=== PATIENT | female | born 1950 | race Caucasian/White ===

== ENCOUNTER 2024-07-01 18:54 | Inpatient (IN) ==
--- OUTSIDE RECORDS SUMMARY | 2024-07-01 18:59 | External Medical Summary | Summary of Care ---
Author Name Unknown Organization [facility] Address [address] [place] [address] Phone [phone] Care Team Providers Care Detention Deputy Name Role Phone Abelardo James MD Primary Care Provider [phone] Reason for Visit * Reason Comments Cough Encounter Details Date Type Department Care Team (Late st Contact Info) Description 06/30/2024 11:20 AM EDT Office Visit Family Practice [facility] [address] [place] [address] Hu Armstrong MD [address] [place] [address] Acute cough*; Iron deficiency anemia, unspecified iron deficiency anemia type; Abnormal CXR Allergies Active Allergy Reactions Criticality Noted Date Comments Nitrofurantoin Cough 12/15/2023 Omeprazole 12/26/2007 Itchiness and rash documented as of this encounter (statuses as of 06/30/2024) Medications Medication Sig Dispensed Refills Start Date End Date Status Vitamin D3 50 MCG (1999) Oral Capsule Take 1 Capsule by mouth in the morning. Active Centrum Silver 50+Women Oral Tablet Take by mouth daily. Active Vitamin C 500 MG Oral Tablet Chewable Take 1 Tablet by mouth in the morning. Active Cetirizine HCl 10 MG Oral Tablet (ZyrTEC) Take 1 Tablet by mouth in the morning. Active LORazepam 0.5 MG Oral Tablet (Ativan)Indications :Essential tremor,MAYANK (generalized anxiety disorder) Take 1 Tablet by mouth every 6 hours as needed for Anxiety. 30 Tablet 1 10/29/2022 Active NIFEdipine ER Osmotic Release 30 MG Oral Tablet Extended Release 24 Hour (Procardia XL)Indications:JOHN T syndrome (HCC) TAKE ONE TABLET BY MOUTH EVERY DAY IN THE MORNING 100 Tablet 3 08/15/2023 Active Primidone 50 MG Oral Tablet (Mysoline) TAKE ONE TABLET BY MOUTH TWO TIMES A DAY 200 Tablet 1 04/10/2024 5 Active Colchicine 0.6 MG Oral TabletIndications:C alcinosis cutis, Raynaud's syndrome, sclerodactyly and telangiectasia (CRST) syndrome (HCC) take 1 tablet by mouth daily 90 Tablet 1 06/01/2024 Active Albuterol Sulfate HFA 108 (90 Base) MCG/ACT Inhalation Aerosol SolutionIndications :Acute bronchitis, antibiotics not indicated Inhale 2 Puffs by mouth every 6 hours as needed for Wheezing. 54 g 1 06/01/2024 Active Mycophenolate Mofetil 500 MG Oral Tablet (CellCept) Take 3 Tablets by mouth in the morning and 3 Tablets before bedtime. 540 Tablet 06/07/2024 Active Iron-Vitamin C 65-125 MG Oral Tablet (Vitron C)Indications:Iron deficiency anemia due to chronic blood loss,CREST syndrome (HCC) 1 tablet 3 days a week ( Tuesday, Tuesday, Tuesday). 30 Tablet 3 06/12/2024 Active Esomeprazole Magnesium 40 MG Oral Capsule Delayed Release TAKE ONE CAPSULE BY MOUTH EVERY DAY BEFORE BREAKFAST 100 Capsule 3 06/12/2024 Active HYDROcodone Bit-Homatrop MBr 5-1.5 MG/5ML Oral Solution (Hycodan)Indication s:Chronic cough Take 5 mL by mouth every 6 hours as needed for Cough. 120 mL 06/23/2024 Active Meclizine HCl 25 MG Oral Tablet ChewableIndications :Benign paroxysmal vertigo of left ear chew 1 Tablet by mouth 3 times a day as needed for Dizziness. 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 Mild chronic gastritis 05/11/2018 MAYANK (generalized anxiety disorder) 01/26/2018 CREST syndrome 10/21/2011 Raynaud's syndrome 09/01/2006 Essential tremor 12/07/2002 documented as of this encounter (statuses as of 06/30/2024) Resolved Problems Problem Noted Date Diagnosed Date Resolved Date PIERSON (dyspnea on exertion) 08/22/2023 Gastroesophageal reflux dise ase with esophagitis 01/26/2018 05/11/2018 Esophageal reflux 01/10/2008 01/26/2018 Overview: esophageal reflux Other specified gastritis wi thout mention of hemorrhage 01/10/2008 01/26/2018 Overview: mild gastric irritation ADVANCE DIRECTIVE INFORMATION 03/23/2006 01/26/2018 Overview: Pt declined brochure FAM HX COLON CANCER- Father 12/07/2002 01/26/2018 Overview: 11/14 colonoscopy WNL. Recheck in 2017. Family history of other card iovascular diseases 12/07/2002 01/26/2018 Overview: ICD-10 update of inactive term FAM HX-DIABETES MELLITUS 12/07/2002 documented as of this encounter (statuses as of 06/30/2024) Immunizations Name Administration Dates Next Due COVID-19 mRNA, LNP-s, No Pre serve, 2-Dose Series (Pfizer) 12/10/2020,11/19/2020 Pneumococcal Conjugate Vacc, 13 Valent (Prevnar) 05/09/2017 Pneumococcal Polysaccharide PPV23 (Pneumovax) 05/11/2018 Seasonal Influenza, PF, 6 M & above, IM , (FluLaval or Fluzone) 06/19/2020,07/19/2018 Seasonal Influenza, Quadriva lent Hd (Fluzone Hd) 07/04/2023,08/24/2021 Seasonal Influenza, Quadriva lent, No Preserve, IM 08/03/2015 Seasonal Influenza, Trivalen t, (IIV3), with Preserv, (Fluzone) 07/31/2016,07/11/2012,07/03/2011,08/01,08/03/2008 Seasonal Influenza, Trivalen t, Adjuvanted, 65+ YRS, PF, (Fluad) 07/28/2022,07/02/2019 TDAP (age 10 and older)(Boostrix) 06/21/2022,10/2011 Varicella Zoster Vaccine (Adult) 09/06/2012 Zoster Vaccine Recombinant (Shingrix) 04/14/2020 ,11/12/2019 documented as of this encounter Social History Tobacco Use Types Packs/Day Years Used Date Smoking Tobacco: Never Smokeless Tobacco: Never Tobacco Cessation:Counseling Given: No Alcohol Use Standard Drinks/Week Comments Yes 0 (1 standard drink = 0.6 oz pure alcohol) As of 2.17.2006, the last noted alcohol intake was 2 ounces. wine occosionally PHQ-2 Answer Date Recorded PHQ-2 Score 0 08/06/2018 Hunger Vital Sign Answer Date Recorded Within the past 12 months, y ou worried that your food would run out before you got the money to buy more. Never true 03/27/20 24 Within the past 12 months, t he food you bought just didn't last and you didn't have money to get more. Never true 03/27/2024 Childcare Answer Date Recorded Do you feel overwhelmed with taking care of a child, family member or friend? No 03/27/2024 Does your family need help f inding childcare? (Household - for ages 0-17 years) Not on file 03/27/2024 Clothing Answer Date Recorded Have you been unable to get clothing when it was really needed? No 03/27/2024 Is your family able to get c lothes or diapers when needed? (Household - for ages 0-17 years) Not on file 03/27/2024 Personal Safety Answer Date Recorded Do you feel unsafe or have concerns for your saf ety? No 03/27/2024 Do you have concerns for you r family's safety? (Household - for ages 0-17 years) Not on file 03/27/2024 Utilities Answer Date Recorded Do you have trouble paying y our heating, water, or electric bill? No 03/27/2024 Is your family able to pay t he heat, water, or electric bill? (Household - for ages 0-17 years) Not on file 03/27/2024 Does your family have access to good internet? (Household - for ages 0-17 years) Not on file 03/27/2024 Employment Status Answer Date Recorded Are you unemployed or without regular income? No 03/27/2024 Does the household have a re lar source of income? (Household - for ages 0-17 years) Not on file 03/27/2024 Social Connections Answer Date Recorded How often do you feel lonely or isolated from th ose around you? Never 03/27/2024 Financial Resource Strain Answer Date R ecorded Do you have any trouble payi ng for your medications, or do you think you might in the future? No 03/27/2024 Does your family have troubl e paying for medicine? (Household - for ages 0-17 years) Not on file 03/27/2024 Transportation Needs Answer Date Record ed Do you have trouble getting a ride to medical visits or work? (Adult - for ages 18 years and over) Not on file 03/27/2024 Does your family have a hard time getting a ride to doctors visits? (Household - for ages 0-17 years) Not on file 03/27/2024 Has lack of transportation k ept you from medical appointments, meetings, work, or from getting things needed for daily living? Check all that apply. No 03/27/2024 Do you (or your family) have trouble finding or paying for a ride (transportation)? (Household - for ages 0-17 years) Not on file 03/27/2024 Housing Stability Answer Date Recorded Do you currently live in a s helter or have no steady place to sleep at night? No 03/27/2024 Do you think you are at risk of becoming homeless? (Adult - for ages 18 years and over) Not on file 03/27/2024 Does your family worry about paying for your home or becoming homeless? (Household - for ages 0-17 years) Not on file 0 03/27/2024 Are you homeless or worried that you might be in the future? No 03/27/2024 Are you (or your family) katalina eless or worried that you might be in the future? (Household - for ages 0-17 years) Not on file Food Insecurity Answer Date Recorded Do you need food for this week? No 03/27/2024 Are you able to get enough f ood for your family? (Household - for ages 0-17 years) Not on file 03/27/2024 Does your family need food t his week? (Household - for ages 0-17 years) Not on file 03/27/2024 Do you always have enough fo od for your family? (Household - for ages 0-17 years) Not on file 03/27/2024 Sex and Gender Information Value Date Recorded Sex Assigned at Female 03/27/2024 4:33 PM EDT Gender Identity Female 03/27/2024 4:33 PM EDT Sexual Orientation Straight 03/27/2024 4: 33 PM EDT Job Start Date Occupation Industry Not on file Not on file Not on file documented as of this encounter Last Filed Vital Signs Vital Sign Reading Time Taken Comments Blood Pressure 120/68 06/30/2024 11:11 AM EDT Pulse 102 06/30/2024 11:11 AM EDT Temperature 36.9 C (98.4 F) 06/30/2024 11:11 AM E DT Respiratory Rate 20 06/30/2024 11:11 AM EDT Oxygen Saturation 98% 06/30/2024 11:11 AM EDT Inhaled Oxygen Concentration - - Weight 54.5 kg (120 lb 1.6 oz) 06/30/2024 11:11 AM EDT Height 166.4 cm (5' 5.5") 06/30/2024 11:11 AM ED T Body Mass Index 19.68 06/30/2024 11:11 AM EDT documented in this encounter Progress Notes * Hu Armstrong MD - 06/30/2024 11:36 AM EDT Chief Complaint Patient presents with Cough SUBJECTIVE: Martha Vargas is a 73 year old female with PMH as below who presents for acute. 6 weeks ago, felt tired, slighty cough +covid, got better. 2 weeks ago, started with re-cough with dark sputum in am, slight pierson. No fevers, but lots of fatigue, some sinus congestion, ear discomfort. 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 Centrum Silver 50+Women Oral Tablet Take by mouth daily. Vitamin C 500 MG Oral Tablet Chewable Take 1 Tablet by mouth in the morning. Cetirizine HCl 10 MG Oral Tablet (ZyrTEC) Take 1 Tablet by mouth in the morning. LORazepam 0.5 MG Oral Tablet (Ativan) Take 1 Tablet by mouth every 6 hours as needed for Anxiety. 30 Tablet 1 NIFEdipine ER Osmotic Release 30 MG Oral Tablet Extended Release 24 Hour (Procardia XL) TAKE ONE TABLET BY MOUTH EVERY DAY IN THE MORNING 100 Tablet 3 Primidone 50 MG Oral Tablet (Mysoline) TAKE ONE TABLET BY MOUTH TWO TIMES A DAY 200 Tablet 1 Colchicine 0.6 MG Oral Tablet take 1 tablet by mouth daily 90 Tablet 1 Albuterol Sulfate HFA 108 (90 Base) MCG/ACT Inhalation Aerosol Solution Inhale 2 Puffs by mouth every 6 hours as needed for Wheezing. 54 g 1 Mycophenolate Mofetil 500 MG Oral Tablet (CellCept) Take 3 Tablets by mouth in the morning and 3 Tablets before bedtime. 540 Tablet 0 Iron-Vitamin C 65-125 MG Oral Tablet (Vitron C) 1 tablet 3 days a week ( Tuesday, Tuesday, Tuesday). 30 Tablet 3 Esomeprazole Magnesium 40 MG Oral Capsule Delayed Release TAKE ONE CAPSULE BY MOUTH EVERY DAY BEFORE BREAKFAST 100 Capsule 3 HYDROcodone Bit-Homatrop MBr 5-1.5 MG/5ML Oral Solution (Hycodan) Take 5 mL by mouth every 6 hours as needed for Cough. 120 mL 0 No current facility-administered medications for this visit. Review of patient's allergies indicates: Allergen Reactions Nitrofurantoin Cough Omeprazole Itchiness and rash Health Maintenance Due Topic Date Due Adult Wellness Visit Never done Depression Screening 11/12/2020 Influenza Vaccine (FLU shot) (1) 06/03/2024 ROS: CONSTITUTIONAL: as per hpi EARS: No drainage, No tinnitus or vertigo, and No recent change in hearing PULMONARY: No rales CARDIOVASCULAR: No chest pain, No orthopnea, No paroxysmal nocturnal dyspnea, No edema, No palpitations, and No syncope ALL OTHER SYSTEMS NEGATIVE I reviewed social, PMH, PSH, and family history and updated where needed. 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 wine occosionally Drug use: No Sexual activity: Yes Partners: Male Other Topics Concern Service Not Asked Blood Transfusions Not Asked Caffeine Concern Not Asked Occupational Exposure Not Asked Hobby Hazards Not Asked Sleep Concern Not Asked Stress Concern Not Asked Weight Concern Not Asked Special Diet Yes Comment: healthy eating habits and calcium reviewed Back Care Not Asked Exercise Yes Comment: curves 4-5x/wk Bike Helmet Not Asked Seat Belt Yes Self-Exams Yes Comment: no findings. Social History Narrative Not on file Social Determinants of Health Financial Resource Strain: Low Risk (03/27/2024) Financial Resource Strain Do you have any trouble paying for your medications, or do you think you might in the future? (Adult - for ages 18 years and over): No Does your family have trouble paying for medicine? (Household - for ages 0-17 years): Not on file Food Insecurity: No Food Insecurity (03/27/2024) Food Insecurity Do you need food for this week? (Adult - for ages 18 years and over): No Are you able to get enough food for your family? (Household - for ages 0-17 years): Not on file Does your family need food this week? (Household - for ages 0-17 years): Not on file Do you always have enough food for your family? (Household - for ages 0-17 years): Not on file Transportation Needs: No Transportation Needs (03/27/2024) Transportation Needs Do you have trouble getting a ride to medical visits or work? (Adult - for ages 18 years and over):Not on file Does your family have a hard time getting a ride to doctors visits? (Household - for ages 0-17 years): Not on file Has lack of transportation kept you from medical appointments, meetings, work, or from getting things needed for daily living? Check all that apply. (Adult - for ages 18 years and over): No Do you (or your family) have trouble finding or paying for a ride (transportation)? (Household - for ages 0-17 years): Not on file Social Connections: Socially Integrated (03/27/2024) Social Connections How often do you feel lonely or isolated from those around you? (Adult - for ages 18 years and over): Never Housing Stability: Low Risk (03/27/2024) Housing Stability Do you currently live in a long-term or have no steady place to sleep at night? (Adult - for ages 18 years and over): No Do you think you are at risk of becoming homeless? (Adult - for ages 18 years and over): Not on file Does your family worry about paying for your home or becoming homeless? (Household - for ages 0-17 years): Not on file Are you homeless or worried that you might be in the future? (Adult - for ages 18 years and over): No Are you (or your family) homeless or worried that you might be in the future? 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) 05/14/2024 cellcept Sigmoid diverticulosis 03/28/2024 Past Surgical History: Procedure Laterality Date COLONOSCOPY 10/2006 negative- repeat in 5 years due to FH colon cancer in father COLONOSCOPY, DIAGNOSTIC (RECTUM) 11/11/2011 normal COLONOSCOPY, DIAGNOSTIC (RECTUM) 01/28/2017 normal, repeat 5 yrs/COLONOSCOPY FLEXIBLE PROXIMAL DIAGNOSTIC performed by Adriana Bruno DO at [facility] COLONOSCOPY, DIAGNOSTIC (RECTUM) 10/07/2022 diverticulosis in sigmoid colon, otherwise normal / no specimens collected / 5 year recall / COLONOSCOPY FLEXIBLE PROXIMAL DIAGNOSTIC performed by Adriana Bruno DO at [facility] EGD, FLEXIBLE, DIAGNOSTIC 02/16/2018 acid reflux/ESOPHAGOGASTRODUODENOSCOPY (EGD), FLEXIBLE, TRANSORAL, DIAGNOSTIC performed by Adriana Bruno DO at [facility] EGD, FLEXIBLE, DIAGNOSTIC 08/20/2020 Maira esophagitis, severe reflux / ESOPHAGOGASTRODUODENOSCOPY (EGD), FLEXIBLE, TRANSORAL, DIAGNOSTIC performed by Adriana Bruno DO at [facility] EGD, FLEXIBLE, DIAGNOSTIC 10/22/2020 eso inflammation on bx / ESOPHAGOGASTRODUODENOSCOPY (EGD), FLEXIBLE, TRANSORAL, DIAGNOSTIC performed by Jordan Mukherjee MD at [facility] EGD, FLEXIBLE, DIAGNOSTIC 10/19/2023 small amount food, thick secreations stomach/biopsies show ulceration and inflammation/ESOPHAGOGASTRODUODENOSCOPY (EGD), FLEXIBLE, TRANSORAL, DIAGNOSTIC performed by Jennifer Young DO at [facility] EGD, FLEXIBLE, W/BIOPSY 01/10/2008 GERD and gastric irritation EXERCISE ECHO 12/14/2007 no ischemic changes at high workload achieved PARTIAL HYSTERECTOMY age 33 for endometriosis; left ovary remains REMOVE CATARACT, INSERT LENS PROSTH Left 12/05/2018 left EXTRACAPSULAR CATARACT REMOVAL WITH INTRAOCULAR LENS performed by Rick Cantu MD at [facility] REMOVE CATARACT, INSERT LENS PROSTH Right 12/12/2018 right EXTRACAPSULAR CATARACT REMOVAL WITH INTRAOCULAR LENS performed by Rick Cantu MD at [facility] Family History Problem Relation Name Age of Onset Alzheimer's disease Mother 87 Colon cancer Father 70s Heart Disorder Father s/p CABG Diabetes Father Heart failure Father No Known Problems Sister No Known Problems Brother Breast Cancer No significant family history Ovarian cancer No significant family history Endometrial cancer No significant family history OBJECTIVE: PHYSICAL EXAM: BP 120/68 (BP Site: Left Arm, BP Position: Sitting, BP Cuff Size: Regular) | Pulse 102 | Temp 36.9 C (98.4 F) (Tympanic) | Resp 20 | Ht 1.664 m (5' 5.5") | Wt 54.5 kg (120 lb 1.6 oz) | SpO2 98% |BMI 19.68 kg/m | BSA 1.59 m General: alert, healthy, and no distress Head: Normocephalic, No masses, lesions,or abnormalities Heart: regular rate & rhythm, no murmur, no gallops, PMI non-displaced, S-1 normal, and S-2 normal Lungs: normal respiratory rate and rhythm, lungs clear to auscultation Ears: small cerumen left canal, otherwise clear, external ears normal Psych: normal affect, no flight of ideas or tangential thought, good eye contact, no pressured speech I reviewed last cbc, gfr ASSESSMENT: (R05.1) Acute cough (primary encounter diagnosis) (D50.9) Iron deficiency anemia, unspecified iron deficiency anemia type PLAN: Acute cough (Primary) - XR CHEST 2 VIEWS - RESPIRATORY PATHOGEN PANEL, PCR; Future; Expected date: 06/30/2024 - RESPIRATORY PATHOGEN PANEL, PCR Check cxr and panel given h/o ILD on cellcept Cont tussive, fluids, rest Iron deficiency anemia, unspecified iron deficiency anemia type Sees heme Follow Up: Return if symptoms worsen or fail to improve. Hu Armstrong MD documented in this encounter Nursing Notes * Lyndsey Santana MED ASSIST - 06/30/2024 11:08 AM EDT Martha Vargas presents with complaints of: Cold Symptoms- Cough - with mucus, color is clear and moist, Left ear feels plugged, loss of hearing Shortness of breath Patient denies other symptoms Onset of symptoms: 2 week(s) ago. COVID 6 weeks ago. documented in this encounter Miscellaneous Notes * Addendum Note - Hu Armstrong MD - 06/30/2024 12:53 PM EDTAddended by: [facility] ARMSTRONG on: 06/30/2024 12:53 PM Modules accepted: Orders documented in this encounter Plan of Treatment Upcoming Encounters Date Type Department Care Team (Late st Contact Info) Description 08/24/2024 9:00 AM EST Laboratory Laboratory, [facility] [address] [place] [phone] [facility] [address] [place] [address] 08/31/2024 11:45 AM EST Office Visit Hematology/Oncology [facility] [address] [facility] [place] [id number] Jonah Felipe MD [address] [facility] [place] [address] 03/13/2025 7:15 AM EDT [facility] [address] [facility] [place] [address] 05/15/2025 7:40 AM EDT Office Visit Family Practice [facility] [address] [facility] [place] [address] Abelardo James MD [address] [place] [address] 06/20/2025 10:20 AM EDT Office Visit Rheumatology [place] [address] [address] [place], [place] [address] Mihir Gomes MD [facility] [place] [address] Pending Results Name Type Priority Associated Diagnoses Date /Time RESPIRATORY PATHOGEN PANEL, PCR Lab Routine Acute cough 06/30/2024 11:45 AM EDT Scheduled Orders Name Type Priority Associated Diagnoses Orde r Schedule RESPIRATORY PATHOGEN PANEL, PCR Lab Routine Acute cough Expected: 06/30/2024 (Approximate), Expires: 06/30/2025 XR CHEST 2 VIEWS Medical Imaging Routine Abnormal CXR Expected: 07/30/2024, Expires: 07/30/2025 Scheduled Procedures Name Priority Associated Diagnoses Date/Ti me COLONOSCOPY FLEXIBLE PROXIMA L DIAGNOSTIC Recall Family history of colon cancer Health Maintenance Due Date Last Done Comments Cologuard 1996 Fecal Occult Blood Test 1996 Sigmoidoscopy 1996 Adult Wellness Visit 2017 Depression Screening 11/12/2020 11/12/2019 Influenza Vaccine (FLU shot) (#1) 2024 07/04/2023, 07/28/2022, 08/24/2021, Additional history exists COVID-19 Vaccine (3 - Pfizer risk series) 07/01/2024 12/10/2020, 11/19/2020 Postponed from 01/07/2021 (Unavailable) Mammogram 03/12/2025 03/12/2024, 03/03, 03/11/2023, Additional history exists DXA Scan 06/27/2025 06/27/2023, 06/04, 06/24/2021, Additional history exists Colonoscopy 10/07/2027 10/07/2022, 01/2023, 01/28/2017, Additional history exists Colorectal Cancer Screening 10/07/2027 Lipid Panel 11/23/2028 11/23/2023, 11/04, 05/05/2022, Additional history exists DTap/Tdap Vaccines (3 - Td or Tdap) 06/21/2032 06/21/2022, 05/03/2012 Pneumococcal Vaccine: 65+ Years Completed 05/11/2018, 05/09/2017 VITAMIN D LEVEL ONCE IN A LIFETIME-USE SMARTSET# [id number] Completed 06/09/2018 Zoster Vaccines Completed 04/14/2020, 11/03, 09/06/2012 RETIRED - COLONOSCOPY-EVERY 5 YRS AGES 18-100 Discontinued 10/07/2022, 10/07/2022, 01/28/2017, Additional history exists HPV (Gardasil) Vaccine Aged Out No lo nger eligible based on patient's age to complete this topic Hepatitis B Vaccine Aged Out No longe r eligible based on patient's age to complete this topic MENINGOCOCCAL (MENACTRA/MENVEO) Aged Out No longer eligible based on patient's age to complete this topic documented as of this encounter Medical Devices Implanted Type 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 Device Identifier Shelf Expiration Date Model / Serial / Lot Lens Intraoc 20.0 - [id number] - [id number] Implanted:Qty: 1 on 12/05/2018 by Rick Cantu MD at [facility] Left: Eye [employer]OM[employer] 06/02/2023 [id number] / [id number] / [id number] Lens Intraoc 16.0 - [id number] - [id number] Implanted:Qty: 1 on 12/12/2018 by Rick Cantu MD at [facility] Right: Eye BAUSCH [employer] LOMB 04/01/2023 [id number] / [id number] / [id number] documented as of this encounter Procedures Procedure Name Priority Date/Time Associated Diagnosis Comments XR CHEST 2 VIEWS STAT 06/30/2024 11:4 5 AM EDT Acute cough documented in this encounter Results * XR CHEST 2 VIEWS (06/30/2024 11:45 AM EDT) Anatomical Region Laterality Modality Chest Digital Radiogra phy 06/30/2024 12:1 9 PM EDT Impressions 06/30/2024 12:17 PM EDT IMPRESSION Bilateral subpleural reticular densities and ground-glass opacities are again noted, consistent with interstitial lung disease. There are however increased bilateral lower lobe ground-glass opacities, concerning for infection. There also bilateral peribronchial thickening. Narrative 06/30/2024 12:17 PM EDT EXAM XR CHEST 2 VIEWS-06/30/2024 11:45 am HISTORY cough 2 weeks h/o ILD COMPARISON Chest CT dated 09/28/2023 TECHNIQUE Chest x-ray two views FINDINGS The cardiac silhouette is normal in size. The lungs are hyperinflated. Bilateral ground-glass opacities and subpleural reticular densities are again noted, most significantly involving the mid and lower lung zones. There are increased bibasilar ground-glass opacities. There is bilateral peribronchial thickening. There are mild degenerative changes of the thoracic spine. Procedure Note Yu Segundo MD - 06/30/2024 EXAM XR CHEST 2 VIEWS-06/30/2024 11:45 am HISTORY cough 2 weeks h/o ILD COMPARISON Chest CT dated 09/28/2023 TECHNIQUE Chest x-ray two views FINDINGS The cardiac silhouette is normal in size. The lungs are hyperinflated.Bilateral ground-glass opacities and subpleural reticular densities areagain noted, most significantly involving the mid and lower lung zones.There are increased bibasilar ground-glass opacities. There is bilateralperibronchial thickening. There are mild degenerative changes of thethoracic spine. IMPRESSION IMPRESSION Bilateral subpleural reticular densities and ground-glass opacities areagain noted, consistent with interstitial lung disease. There are howeverincreased bilateral lower lobe ground-glass opacities, concerning forinfection. There also bilateral peribronchial thickening. Hu Armstrong MD RADIOLOGY (RAD G ENERAL) documented in this encounter Visit Diagnoses Diagnosis Acute cough- Primary Iron deficiency anemia, unspecified iron deficiency anemia type Abnormal CXR Other nonspecific abnormal finding of lung field Screening mammogram for breast cancer documented in this encounter Additional Health Concerns Infection Onset Date Last Indicated Resolved Time Respiratory Rule-Out 06/30/2024 06/30/2024 documented as of this encounter Care Teams Detention Deputy Relationship Specialty Start Date End Date Abelardo James MD [address] [place] [address] PCP - General Family Medicine 11/09/18 documented as of this encounter
--- OUTSIDE RECORDS SUMMARY | 2024-07-01 18:59 | External Medical Summary | Summary of Care ---
Author Name Unknown Organization [facility] Address [address] [facility] [place] [address] Phone [phone] Care Team Providers Care Community Health Program Representative Name Role Phone Abelardo James MD Primary Care Provider [phone] Reason for Visit * Reason Comments Cough Encounter Details Date Type Department Care Team (Late st Contact Info) Description 06/30/2024 11:20 AM EDT Office Visit Family Practice [facility] [address] [place] [address] Hu Armstrong MD [address] [place] [address] Acute cough*; Iron deficiency anemia, unspecified iron [...] Oral Tablet Extended Release 24 Hour (Procardia XL)Indications:JHON T syndrome (HCC) TAKE ONE TABLET BY [...] Essential tremor Raynaud's syndrome CREST syndrome ([facility]) MAYANK (generalized anxiety disorder) Mild chronic gastritis Age-related osteoporosis without current pathological fracture Dyslipidemia Benign paroxysmal vertigo of left ear ILD (interstitial lung disease) ([facility]) Sigmoid diverticulosis 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[facility]) Current Outpatient Medications Medication Sig Dispense Refill [...] level: Not on file Occupational History 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: [employer] 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: [employer] Tobacco Use Smoking status: Never [...] Stability Do you currently live in a care home or have no steady place to sleep [...] performed by Adriana Bruno DO at END[facility]COPY [facility] COLONOSCOPY, DIAGNOSTIC (RECTUM) 10/07/2022 diverticulosis in sigmoid colon, otherwise normal / no specimens collected / 5 year recall / COLONOSCOPY FLEXIBLE PROXIMAL DIAGNOSTIC performed by Adriana Bruno DO at [facility]COPY [facility] EGD, FLEXIBLE, DIAGNOSTIC 02/16/2018 acid reflux/ESOPHAGOGASTRODUODENOSCOPY (EGD), FLEXIBLE, TRANSORAL, DIAGNOSTIC performed by Adriana Bruno DO at [facility]COPY [facility] EGD, FLEXIBLE, DIAGNOSTIC 08/20/2020 Maira esophagitis, severe reflux / ESOPHAGOGASTRODUODENOSCOPY (EGD), FLEXIBLE, TRANSORAL, DIAGNOSTIC performed by Ardiana Bruno DO at [facility]COPY [facility] EGD, FLEXIBLE, DIAGNOSTIC 10/22/2020 eso inflammation on bx / ESOPHAGOGASTRODUODENOSCOPY (EGD), FLEXIBLE, TRANSORAL, DIAGNOSTIC performed by Jordan Mukherjee MD at [facility]COPY [facility] EGD, FLEXIBLE, DIAGNOSTIC 10/19/2023 small amount food, thick secreations stomach/biopsies show ulceration and inflammation/ESOPHAGOGASTRODUODENOSCOPY (EGD), FLEXIBLE, TRANSORAL, DIAGNOSTIC performed by Jennifer Young DO at [facility] EGD, FLEXIBLE, W/BIOPSY 01/10/2008 GERD and gastric irritation EXERCISE ECHO 12/14/2007 no ischemic changes at high workload achieved PARTIAL HYSTERECTOMY age 33 for endometriosis; left ovary remains REMOVE CATARACT, INSERT LENS PROSTH Left 12/05/2018 left EXTRACAPSULAR CATARACT REMOVAL WITH INTRAOCULAR LENS performed by Rick Cantu MD at [facility] REMOVE CATARACT, INSERT LENS PROSTH Right 12/12/2018 right EXTRACAPSULAR CATARACT REMOVAL WITH INTRAOCULAR LENS performed by Rick Cantu MD at OR [facility] Family History Problem Relation Name Age of [...] MD - 06/30/2024 12:53 PM EDTAddended by: HU ARMTSRONG on: 06/30/2024 12:53 PM Modules accepted: Orders documented in this encounter Plan of Treatment Upcoming Encounters Date Type Department Care Team (Late st Contact Info) Description 08/24/2024 9:00 AM EST Laboratory Laboratory, [facility] [address] [facility] [place] [phone] [facility] [address] [place] [place] [address] 08/31/2024 11:45 AM EST Office Visit Hematology/Oncology [facility] [address] [facility] [place] [phone] Jonah Felipe MD [address] [facility] [place] [address] 03/13/2025 7:15 AM EDT [facility] [address] [address] 05/15/2025 7:40 AM EDT Office [facility] [address] [facility] [place] [address] Abelardo James MD [address] [facility] [place] [address] 06/20/2025 10:20 AM EDT Office Visit Rheumatology [place] [address] [employer] [place], [place] [address] Mihir Gomes MD [facility] [place] [address] Pending Results Name Type Priority Associated Diagnoses [...] D LEVEL ONCE IN A LIFETIME-USE SMARTSET# 11183 Completed 06/09/2018 Zoster Vaccines Completed 04/14/2020, 11/03, [...] this encounter Medical Devices Implanted Type Area Model Set Artist Device Identifier Shelf Expiration Date Model / Serial / Lot Lens Intraoc 20.0 - [id number] - [id number] Implanted:Qty: 1 on 12/05/2018 by Rick Cantu MD at OR [facility] Left: Eye BAUSCH [employer] LOMB 06/02/2023 [id number] / [id number] / [id number] Lens Intraoc 16.0 - [id number] - [id number] Implanted:Qty: 1 on 12/12/2018 by Rick Cantu MD at OR [facility] Right: Eye BAUSCH [employer] LOMB 04/01/2023 [id number] / [id number] / [id number] documented as of this encounter Procedures Procedure [...] documented as of this encounter Care Teams Community Health Program Representative Relationship Specialty Start Date End Date Abelardo James MD [address] [place] [address] PCP - General Family Medicine 11/09/18 documented as of this encounter
--- OUTSIDE RECORDS SUMMARY | 2024-07-01 18:59 | External Medical Summary ---
Author Name Unknown Address Unknown Organization K01:LABORATORY [facility] - [facility] [address] [place] [address] Laboratory Report Ordering Provider Test Date Status THI SAAVEDRA 06/29/2024 09:04:22 Final Observation Date Value Abnormality Reference (Units ) Status Retic, % (auto) 06/29/2024 09:04:22 1.10 0.80-1.90 (%) Final Reticulocytes, Absolute 06/29/2024 09:04:22 31.8 31.3-100.1 (K/uL) Final Reticulocyte fraction, immature 06/29/2024 09:04:22 16.2 2.5-20.6 (%) Final Reticulocyte HGB 06/29/2024 09:04:22 29.1 Below low normal 29.7-37.4 (pg) Final Performing Location LABORATORY [facility] - [address] [place] [address]
--- OUTSIDE RECORDS SUMMARY | 2024-07-01 18:59 | External Medical Summary ---
Author Name Unknown Address Unknown Organization K01:LABORATORY [facility] - [address] [place] [address] Laboratory Report Ordering Provider Test Date Status THI SAAVEDRA 06/29/2024 09:04:22 Final Observation Date Value Abnormality Reference (Units ) Status Ferritin 06/29/2024 09:04:22 205 Above high normal 13 -150 (ng/mL) Final Postmenopausal women have hi gher ferritin levels than pre-menopausal women. The above reference interval is based on pre-menopausal women. Performing Location LABORATORY C - [address] [place] [address]
--- OUTSIDE RECORDS SUMMARY | 2024-07-01 18:59 | External Medical Summary | Summary of Care ---
Author Name Unknown Organization [facility] Address [address] [facility] [place] [place] [address] Phone [phone] Care Team Providers Care Kindergarten Aide Name Role Phone Abelardo James MD Primary Care Provider [phone] Reason for Visit * Reason Onset Date Comments Test Results Imaging Study 06/30/2024 Chest X ray Encounter Details Date Type Department Care Team (Late st Contact Info) Description 06/30/2024 Telephone Family Practice [facility] [address] [place] [address] Abelardo James MD [address] [place] [address] Test Results Imaging Study (Chest X ray) Allergies Active Allergy Reactions Criticality Noted Date [...] anemia due to chronic blood loss,CREST syndrome ([facility]) 1 tablet 3 days a week ( Tuesday, Tuesday, Tuesday). 30 Tablet 3 06/12/2024 Active Esomeprazole Magnesium 40 MG Oral Capsule Delayed Release TAKE ONE CAPSULE BY MOUTH EVERY DAY BEFORE BREAKFAST 100 Capsule 3 06/12/2024 Active HYDROcodone Bit-Homatrop MBr 5-1.5 MG/5ML Oral Solution (Hycodan)Indication s:Chronic cough Take 5 mL by mouth every 6 hours as needed for Cough. 120 mL 06/23/2024 Active Doxycycline Hyclate 100 MG Oral CapsuleIndications: Lung infection Take 1 Capsule by mouth in the morning and 1 Capsule before bedtime. Do all this for 7 days. Take for 7 days. 14 Capsule 06/30/2024 4 Active Amoxicillin-Pot Clavulanate 875-125 MG Oral Tablet (Augmentin)Indicati ons:Lung infection Take 1 Tablet by mouth in the morning and 1 Tablet before bedtime. 14 Tablet 06/30/2024 Active Azithromycin 250 MG Oral Tablet (Zithromax)Indicati ons:Lung infection Take 2 tabs by mouth on the first day, then 1 tab daily on days two through five 6 Tablet 06/30/2024 4 Discontinue d(Patient preference/ discontinua tion) Amoxicillin-Pot Clavulanate 875-125 MG Oral Tablet (Augmentin)Indicati ons:Lung infection Take 1 Tablet by mouth in the morning and 1 Tablet before bedtime. Do all this for 7 days. 14 Tablet 06/30/2024 4 Discontinue d(Patient preference/ discontinua tion) documented [...] Date Smoking Tobacco: Never Smokeless Tobacco: Never Alcohol Use Standard Drinks/Week Comments Yes 0 (1 standard drink = 0.6 oz pure alcohol) As of 11.19.2006, the last noted alcohol [...] on file documented as of this encounter Miscellaneous Notes * Telephone Encounter - Lyndsey Santana, MED ASSIST - 06/30/2024 1:41 PM EDT Patient's aware and agreeable. * Telephone Encounter - Lyndsey Santana MED ASSIST - 06/30/2024 1:40 PM EDT ----- Message from Hu Armstrong MD sent at 06/30/2024 12:52 PM EDT ----- Possible pneumonias on x-ray. I would recommend, while we wait for swab, starting azithromycin(z pack) AND amoxicillin-clauv for possible pneumonia. Repeat cxr 4 weeks. Er for worsening, sob, pierson, cough * Telephone Encounter - Hu Armstrong MD - 06/30/2024 1:38 PM EDT Please let her know I switch abx to Augmentin (amox-clauv) and doxycyline as I saw on colchicine, can't use azithromycin on that med, thanks * Telephone Encounter - Madeline Basurto LPN - 06/30/2024 1:27 PM EDT Spoke to pt and made her aware of message below. Pt stated understanding. [facility] [place]. * Telephone Encounter - Madeline Basurto LPN - 06/30/2024 1:25 PM EDT ----- Message from Hu Armstrong MD sent at 06/30/2024 12:52 PM EDT ----- Possible pneumonias on x-ray. I would recommend, while we wait for swab, starting azithromycin(z pack) AND amoxicillin-clauv for possible pneumonia. Repeat cxr 4 weeks. Er for worsening, sob, pierson, cough documented in this encounter Plan of Treatment Upcoming Encounters Date Type Department Care Team (Late st Contact Info) Description 08/24/2024 9:00 AM EST Laboratory Laboratory, [facility] [address] [facility] [place] [phone] [facility] [address] [facility] [place] [address] 08/31/2024 11:45 AM EST Office Visit Hematology/Oncology [facility] [address] [facility] [place] [phone] Jonah Felipe MD [address] [facility] [place] [address] 03/13/2025 7:15 AM EDT Imaging Radiology [facility] 132 [facility] [place] [address] 05/15/2025 7:40 AM EDT Office Visit Family Practice [facility] [address] [facility] [place] [address] Abelardo James MD [address] [facility] [place] [address] 06/20/2025 10:20 AM EDT Office Visit Rheumatology [address] [place] [address] Mihir Gomes MD [facility] [place] [address] Scheduled Procedures Name Priority Associated Diagnoses Date/Ti [...] D LEVEL ONCE IN A LIFETIME-USE SMARTSET# [id number] Completed 06/09/2018 Zoster Vaccines Completed 04/14/2020, 11/03, [...] this encounter Medical Devices Implanted Type Area Creative Services Manager Device Identifier Shelf Expiration Date Model / Serial / Lot Lens Intraoc 20.0 - [id number] - [id number] Implanted:Qty: 1 on 12/05/2018 by Rick Cantu MD at [facility] Left: Eye BAUSCH [employer] LOMB 06/02/2023 [id number] / [id number] / [id number] Lens Intraoc 16.0 - [id number] - [id number] Implanted:Qty: 1 on 12/12/2018 by Rick Cantu MD at [facility] Right: Eye BAUSCH & LOMB 04/01/2023 [id number] / [id number] / [id number] documented as of this encounter Visit Diagnoses Diagnosis Lung infection- Primary Other diseases of lung, not elsewhere classified Screening mammogram for breast cancer documented in this encounter Additional Health Concerns Infection Onset Date Last Indicated Resolved Time Respiratory Rule-Out 06/30/2024 06/30/2024 documented as of this encounter Care Teams Kindergarten Aide Relationship Specialty Start Date End Date Abelardo James MD [address] [place] [address] PCP - General Family Medicine 11/09/18 documented as of this encounter
--- OUTSIDE RECORDS SUMMARY | 2024-07-01 18:59 | External Medical Summary ---
Author Name Unknown Address Unknown Organization K01:LABORATORY [facility] - [address] [facility] [place] [address] Laboratory Report Ordering Provider Test Date Status MERARY GARCIA 06/30/2024 11:45:31 Final Observation Date Value Abnormality Reference (Units ) Status Adenovirus DNA [Presence] in Nasopharynx by ELY with non-probe detection 06/30/2024 11:45:31 Negative Negative Final Human coronavirus 229E RNA [Presence] in Nasopharynx by ELY with non-probe detection 06/30/2024 11:45:31 Negative Negative Final Human coronavirus HKU1 RNA [Presence] in Nasopharynx by ELY with non-probe detection 06/30/2024 11:45:31 Negative Negative Final Human coronavirus NL63 RNA [Presence] in Nasopharynx by ELY with non-probe detection 06/30/2024 11:45:31 Negative Negative Final Human coronavirus OC43 RNA [Presence] in Nasopharynx by ELY with non-probe detection 06/30/2024 11:45:31 Negative Negative Final SARS-CoV-2 (COVID-19) RNA [Presence] in Nasopharynx by ELY with non-probe detection 06/30/2024 11:45:31 Positive Abnormal Negative Final Coronavirus SARS detected by PCR (amplified probe). Test results reported to [facility]. Human metapneumovirus RNA [P resence] in Nasopharynx by ELY with non-probe detection 06/30/2024 11:45:31 Negative Negative Final Rhinovirus+Enterovirus RNA [ Presence] in Nasopharynx by ELY with non-probe detection 06/30/2024 11:45:31 Negative Negative Final Influenza virus A RNA [Prese nce] in Nasopharynx by ELY with non-probe detection 06/30/2024 11:45:31 Negative Negative Final Influenza virus B RNA [Prese nce] in Nasopharynx by ELY with non-probe detection 06/30/2024 11:45:31 Negative Negative Final Parainfluenza virus 1 RNA [P resence] in Nasopharynx by ELY with non-probe detection 06/30/2024 11:45:31 Negative Negative Final Parainfluenza virus 2 RNA [P resence] in Nasopharynx by ELY with non-probe detection 06/30/2024 11:45:31 Negative Negative Final Parainfluenza virus 3 RNA [P resence] in Nasopharynx by ELY with non-probe detection 06/30/2024 11:45:31 Negative Negative Final Parainfluenza virus 4 RNA [P resence] in Nasopharynx by ELY with non-probe detection 06/30/2024 11:45:31 Negative Negative Final Respiratory syncytial virus RNA [Presence] in Nasopharynx by ELY with non-probe detection 06/30/2024 11:45:31 Negative Negative F inal Bordetella pertussis.pertuss is toxin promoter region [Presence] in Nasopharynx by ELY with non-probe detection 06/30/2024 11:45:31 Negative Negative Final Chlamydophila pneumoniae DNA [Presence] in Nasopharynx by ELY with non-probe detection 06/30/2024 11:45:31 Negative Negative Final Mycoplasma pneumoniae DNA [P resence] in Nasopharynx by ELY with non-probe detection 06/30/2024 11:45:31 Negative Negative Final Bordetella parapertussis IS1 001 DNA [Presence] in Nasopharynx by ELY with non-probe detection 06/30/2024 11:45:31 Negative Negative F inal
The primers that detect Rhinovirus may cross react with some Enterorviruses. The validation of bronchial specimens, tracheal aspirates, and throats for this assay was developed and performance characteristics determined by [employer]. The validation of alternate specimen types has not been cleared or approved by the U.S. Food and Drug Administration (FDA). It has been determined that such clearance or approval is not necessary. Performing Location [facility] - [facility] [address] [facility]. [facility] [address]
--- OUTSIDE RECORDS SUMMARY | 2024-07-01 18:59 | External Medical Summary | Summary of Care ---
Author Name Unknown Organization [facility] Address [address] [facility] [place] [address] Phone [phone] Care Team Providers Care Riding Teacher Name Role Phone Abelardo James MD Primary Care Provider [phone] Reason for Visit * Reason Comments Outpatient Testing Encounter Details Date Type Department Care Team (Late st Contact Info) Description 06/29/2024 9:00 AM EDT Laboratory Laboratory, [facility] [address] [place] [id number] [facility] [address] [place] [address] CREST syndrome (HCC); Iron deficiency anemia due to chronic blood loss Allergies Active Allergy Reactions Criticality Noted Date Comments Nitrofurantoin Cough 12/15/2023 Omeprazole 12/26/2007 Itchiness and rash documented as of this encounter (statuses as of 06/29/2024) Medications Medication Sig Dispensed Refills Start Date [...] morning. Active LORazepam 0.5 MG Oral Tablet (Ativan)Indications: Essential tremor,MAYANK (generalized anxiety disorder) Take 1 Tablet by mouth every 6 hours as needed for Anxiety. 30 Tablet 1 10/29/2022 Active Meclizine HCl 25 MG Oral Tablet ChewableIndications: Benign paroxysmal vertigo of left ear chew 1 Tablet by mouth 3 times a day as needed for Dizziness. 30 Tablet 1 11/23/2022 Active Additional Information Patient not taking.Reported on 06/19/2024 NIFEdipine ER Osmotic Release 30 MG Oral Tablet Extended Release 24 Hour (Procardia XL)Indications:CREST syndrome (HCC) TAKE ONE TABLET BY MOUTH EVERY DAY IN THE MORNING 100 Tablet 3 08/15/2023 Active Primidone 50 MG Oral Tablet (Mysoline) TAKE ONE TABLET BY MOUTH TWO TIMES A DAY 200 Tablet 1 04/10/2024 Active Colchicine 0.6 MG Oral TabletIndications:Ca lcinosis cutis, Raynaud's syndrome, sclerodactyly and telangiectasia (CRST) syndrome (HCC) take 1 tablet by mouth daily 90 Tablet 1 06/01/2024 Active Albuterol Sulfate HFA 108 (90 Base) MCG/ACT Inhalation Aerosol SolutionIndications: Acute bronchitis, antibiotics not indicated Inhale 2 Puffs [...] HYDROcodone Bit-Homatrop MBr 5-1.5 MG/5ML Oral Solution (Hycodan)Indications :Chronic cough Take 5 mL by mouth every 6 hours as needed for Cough. 120 mL 06/23/2024 Active documented as of this encounter (statuses as of 06/29/2024) Active Problems Problem Noted Date Diagnosed Date [...] as of this encounter (statuses as of 06/29/2024) Resolved Problems Problem Noted Date Diagnosed Date Resolved Date HERRING (dyspnea on exertion) 08/22/2023 Gastroesophageal reflux dise [...] as of this encounter (statuses as of 06/29/2024) Immunizations Name Administration Dates Next Due COVID-19 [...] on file documented as of this encounter Plan of Treatment Upcoming Encounters Date Type Department Care Team (Late st Contact Info) Description 06/30/2024 11:20 AM EDT Office Visit Family Practice [facility] [address] [place] [address] Hu Armstrong MD [address] [facility] [place] [address] 08/24/2024 9:00 AM EST [facility] [address] [place] [phone] [facility] [address] [place] [address] 08/31/2024 11:45 AM EST Office Visit Hematology/Oncology [facility] [place] [address] [place] [phone] Jonah Felipe MD [address] [place], [place] [address] 03/13/2025 7:15 AM EDT Imaging Radiology [address] [facility] [place] [address] 05/15/2025 7:40 AM EDT Office Visit Family Practice [facility] [address] [facility] [place] [address] Abelardo James MD [address] [facility] [place] [address] 06/20/2025 10:20 AM EDT Office Visit Rheumatology [place] [address] [employer] [place], [place] [address] Mihir Gomes MD [facility] [employer] [place], [place] [address] Pending Results Name Type Priority Associated Diagnoses Date /Time IRON SCREEN, INCLUDING TIBC Lab Routine CREST syndrome (HCC) Iron deficiency anemia due to chronic blood loss 06/29/2024 9:04 AM EDT FERRITIN Lab Routine CREST syndrome (HCC) Iron deficiency anemia due to chronic blood loss 06/29/2024 9:04 AM EDT RETICULOCYTE PANEL Lab Routine CREST syndrome (HCC) Iron deficiency anemia due to chronic blood loss 06/29/2024 9:04 AM EDT Scheduled Procedures Name Priority Associated Diagnoses Date/Ti me COLONOSCOPY FLEXIBLE PROXIMA L DIAGNOSTIC Recall Family history of colon cancer Health Maintenance Due Date Last Done Comments Cologuard 1996 Fecal Occult Blood Test 1996 Sigmoidoscopy 1996 Adult Wellness Visit 2017 Depression Screening 11/12/2020 11/12/2019 COVID-19 Vaccine (3 - Pfizer risk series) 01/07/2021 12/10/2020, 11/19/2020 Influenza Vaccine (FLU shot) (#1) 2024 07/04/2023, 07/28/2022, 08/24/2021, Additional history exists Mammogram 03/12/2025 03/12/2024, 03/03, 03/11/2023, Additional history exists DXA Scan 06/27/2025 06/27/2023, 06/04, 06/24/2021, Additional history exists Colonoscopy 10/07/2027 10/07/2022, 01/2023, 01/28/2017, Additional history exists Colorectal Cancer Screening 10/07/2027 Lipid Panel 11/23/2028 11/23/2023, 11/04, 05/05/2022, Additional history exists DTap/Tdap Vaccines (3 - Td or Tdap) 06/21/2032 06/21/2022, 05/03/2012 Pneumococcal Vaccine: 65+ Years Completed 05/11/2018, 05/09/2017 VITAMIN D LEVEL ONCE IN A LIFETIME-USE SMARTSET# [id number] Completed 06/09/2018 Zoster Vaccines Completed 04/14/2020, 11/03, [...] this encounter Medical Devices Implanted Type Area [employer] Manager Device Identifier Shelf Expiration Date Model / Serial / Lot Lens Intraoc 20.0 - [id number] - [id number] Implanted:Qty: 1 on 12/05/2018 by Rick Cantu MD at [facility] Left: Eye [employer] 06/02/2023 [id number] / [id number] / [id number] Lens Intraoc 16.0 - [id number] - [id number] Implanted:Qty: 1 on 12/12/2018 by Rick Cantu MD at OR [facility] Right: Eye [employer] 04/01/2023 [id number] / [id number] / [id number] documented as of this encounter Procedures Procedure Name Priority Date/Time Associated Diagnosis Comments DIFFERENTIAL, AUTOMATED STAT 06/29/2024 9:04 AM EDT CREST syndrome (HCC) Iron deficiency anemia due to chronic blood loss CBC STAT 06/29/2024 9:04 AM EDT CREST syndrome (HCC) Iron deficiency anemia due to chronic blood loss CBC STAT 06/29/2024 9:04 AM EDT CREST syndrome (HCC) Iron deficiency anemia due to chronic blood loss documented in this encounter Results * (ABNORMAL) DIFFERENTIAL, AUTOMATED (06/29/2024 9:04 AM EDT) WBC 4.19 4.00 - 10.80 K/uL 06/29/2024 9:45 AM EDT [facility] Neutrophils % 74.5 40.0 - 75.0 % 06/29/2024 9:45 AM EDT [facility] Lymphocytes % 12.2(L) 18.0 - 42.0 % 06/29/2024 9:45 AM EDT [facility] Monocytes % 12.6(H) 1.0 - 11.0 % 06/29/2024 9:45 AM EDT [facility] Eosinophils % 0.7 0.0 - 6.0 % 06/29/2024 9:45 AM EDT [facility] [place] [facility] Basophils % 0.0 0.0 - 2.0 % 06/29/2024 9:45 AM EDT [facility] [place] [facility]10 Absolute Neutrophils 3.12 1.80 - 7.70 K/uL 06/29/2024 9:45 AM EDT [facility] [place] [facility] Absolute Lymphocytes 0.51(L) 1.00 - 4.80 K/ul 06/29/2024 9:45 AM EDT [facility] [place] [facility] Absolute Monocytes 0.53 0.00 - 1.10 K/uL 06/29/2024 9:45 AM EDT [facility] [place] [facility] Absolute Eosinophils 0.03 0.00 - 0.70 K/uL 06/29/2024 9:45 AM EDT [facility]10 Absolute Basophils 0.00 0.00 - 0.20 K/uL 06/29/2024 9:45 AM EDT [facility]10 Blood Venous blood specimen / Unknown Venipuncture / Unknown 06/29/2024 9:04 AM EDT 06/29/2024 9:04 AM EDT Jonah Felipe MD LAB BLOOD ORDERABLES [facility] [address] [place] [address] * (ABNORMAL) CBC (06/29/2024 9:04 AM EDT) WBC 4.19 4.00 - 10.80 K/uL 06/29/2024 9:45 AM EDT [facility]10 RBC 2.95 3.85 - 5.15 M/uL 06/29/2024 9:45 AM EDT [facility] 57[facility]10 HGB 8.9(L) 12.0 - 15.3 g/dL 06/29/2024 9:45 AM EDT [facility] 57[facility]10 HCT 27.9(L) 36.0 - 45.2 % 06/29/2024 9:45 AM EDT [facility]10 MCV 94.6 81.5 - 97.5 fL 06/29/2024 9:45 AM EDT [facility]10 MCH 30.2 27.0 - 34.0 pg 06/29/2024 9:45 AM EDT [facility] 57[facility]10 MCHC 31.9 32.0 - 36.0 g/dL 06/29/2024 9:45 AM EDT [facility]10 RDW 14.2 11.5 - 15.5 % 06/29/2024 9:45 AM EDT [facility]10 PLT 299 140 - 400 K/uL 06/29/2024 9:45 AM EDT [facility] [place]10 MPV 10.4 6.6 - 11.1 fL 06/29/2024 9:45 AM EDT [facility]10 Blood Venous blood specimen / Unknown Venipuncture / Unknown 06/29/2024 9:04 AM EDT 06/29/2024 9:04 AM EDT Jonah Felipe MD LAB BLOOD ORDERABLES [facility] [place] [address] documented in this encounter Visit Diagnoses Diagnosis CREST syndrome (HCC) Systemic sclerosis Iron deficiency anemia due to chronic blood loss Iron deficiency anemia secondary to blood loss (chronic) Screening mammogram for breast cancer documented in this encounter Care Teams Riding Teacher Relationship Specialty Start Date End Date Abelardo James MD [address] [place] [address] PCP - General Family Medicine 11/09/18 documented as of this encounter
--- OUTSIDE RECORDS SUMMARY | 2024-07-01 18:59 | External Medical Summary ---
Author Name Unknown Address Unknown Organization [id number]:[facility] [place] [address] [place] [address] Laboratory Report Ordering Provider Test Date Status THI SAAVEDRA 06/29/2024 09:04:22 Final Observation Date Value Abnormality Reference (Units ) Status Iron 06/29/2024 09:04:22 26 Below low normal 33-151 (ug/dL) Final Iron-binding capacity 06/29/2024 09:04:22 187 Below low normal 250-425 (ug/dL) Final Transferrin Sat % 06/29/2024 09:04:22 14 Below low normal 15-55 (%) Final Performing Location [facility] [place] [facility] [address] [place] [address]
--- OUTSIDE RECORDS SUMMARY | 2024-07-01 18:59 | External Medical Summary ---
Author Name Unknown Address Unknown Organization [id number]:[facility] - [address] [place] [address] Laboratory Report Ordering Provider Test Date Status THI SAAVEDRA 06/29/2024 09:04:22 Final Observation Date Value Abnormality Reference (Units ) Status SYNC LEUKOCYTES IN BLOOD BY AUTOMATED COUNT 06/29/2024 09:04:22 4.19 4.00-10.80 (K/uL) Final Segs 06/29/2024 09:04:22 74.5 40.0-75.0 (%) Final Lymphs % 06/29/2024 09:04:22 12.2 Below low normal 18.0-42.0 (%) Final Monos 06/29/2024 09:04:22 12.6 Above high normal 1.0-11.0 (%) Final Eosinophils 06/29/2024 09:04:22 0.7 0.0-6.0 (%) Final Basos 06/29/2024 09:04:22 0.0 0.0-2.0 (%) Final Absolute Segs 06/29/2024 09:04:22 3.12 1.80-7.70 (K/uL) Final Lymphs, absolute 06/29/2024 09:04:22 0.51 Below low normal 1.00-4.80 (K/ul) Final Monos, Abs 06/29/2024 09:04:22 0.53 0.00-1.10 (K/uL) Final Eos, Abs 06/29/2024 09:04:22 0.03 0.00-0.70 (K/uL) Final Basos, Abs 06/29/2024 09:04:22 0.00 0.00-0.20 (K/uL) Final Performing Location [facility] 0 - [address] [place] [address]
--- OUTSIDE RECORDS SUMMARY | 2024-07-01 19:00 | External Medical Summary | Summary of Care ---
Author Name Unknown Organization [facility] Address [address] [place] [address] Phone [phone] Care Team Providers [facility] B[facility] Name Role Phone Abelardo James MD Primary Care Provider [phone] Reason for Visit * Reason Comments Follow Up ILD Clinic Encounter Details Date Type Department Care Team (Late st Contact Info) Description 06/07/2024 9:30 AM EDT Office Visit Pulmonary Medicine, [place] [address], [place] [id number] Bruce Villegas MD [address], [place] [phone] ILD (interstitial lung disease) ([facility])*; CREST syndrome (HCC); Gastroesophageal reflux disease, unspecified whether esophagitis present Allergies Active Allergy Reactions Criticality Noted Date Comments Nitrofurantoin Cough 12/15/2023 Omeprazole 12/26/2007 Itchiness and rash documented as of this encounter (statuses as of 06/07/2024) Medications Medication Sig Dispensed Refills Start Date [...] for Dizziness. 30 Tablet 1 11/23/2022 Active Esomeprazole Magnesium 40 MG Oral Capsule Delayed Release TAKE ONE CAPSULE BY MOUTH EVERY DAY BEFORE BREAKFAST 100 Capsule 3 04/25/2023 Active NIFEdipine ER Osmotic Release 30 MG Oral Tablet Extended Release 24 Hour (Procardia XL)Indications:JOHN T syndrome (HCC) TAKE ONE TABLET BY MOUTH EVERY DAY IN THE MORNING 100 Tablet 3 08/15/2023 Active Hair Skin & Nails Oral Tablet Take by mouth. Active Primidone 50 MG Oral Tablet (Mysoline) [...] for Wheezing. 54 g 1 06/01/2024 Active Iron 325 (65 Fe) MG Oral Tablet Take by mouth. Active Mycophenolate Mofetil 500 MG Oral Tablet (CellCept) Take 3 Tablets by mouth in the morning and 3 Tablets before bedtime. 540 Tablet 06/07/2024 Active Mycophenolate Mofetil 500 MG Oral Tablet (CellCept) Take 3 Tablets by mouth in the morning and 3 Tablets before bedtime. 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 Mild chronic gastritis 05/11/2018 MAYANK (generalized anxiety disorder) 01/26/2018 CREST syndrome 10/21/2011 Essential tremor 12/07/2002 documented as of this encounter (statuses as of 06/07/2024) Resolved Problems Problem Noted Date Diagnosed Date Resolved Date HERRING (dyspnea on exertion) 08/22/2023 Gastroesophageal reflux dise ase with esophagitis 01/26/2018 05/11/2018 Esophageal reflux 01/10/2008 01/26/2018 Overview: esophageal reflux Other specified gastritis wi thout mention of hemorrhage 01/10/2008 01/26/2018 Overview: mild gastric irritation Raynaud's syndrome 09/01/2006 2 ADVANCE DIRECTIVE INFORMATION 03/23/2006 01/26/2018 Overview: Pt declined brochure FAM HX COLON CANCER- Father 12/07/2002 01/26/2018 Overview: 11/14 colonoscopy WNL. Recheck in 2017. Family history of other card iovascular diseases 12/07/2002 01/26/2018 Overview: ICD-10 update of inactive term FAM HX-DIABETES MELLITUS 12/07/2002 documented as of this encounter (statuses as of 06/07/2024) Immunizations Name Administration Dates Next Due COVID-19 mRNA, LNP-s, No Pre serve, 2-Dose Series (bookletmobile) 12/10/2020,11/19/2020 Pneumococcal Conjugate Vacc, 13 Valent (Prevnar) [...] 03/27/2024 Does the household have a re gular source of income? (Household - for ages [...] Sign Reading Time Taken Comments Blood Pressure 134/63 06/07/2024 9:42 AM EDT Pulse 93 06/07/2024 9:42 AM EDT Temperature 36.5 C (97.7 F) 06/07/2024 9:42 AM ED T Respiratory Rate - - Oxygen Saturation 97% 06/07/2024 9:42 AM EDT Room Air Inhaled Oxygen Concentration - - Weight 55.7 kg (122 lb 12.8 oz) 06/07/2024 9:42 AM EDT Height - - Body Mass Index 20.28 05/14/2024 9:03 AM EDT documented in this encounter Progress Notes * Bruce Villegas MD - 06/07/2024 10:08 AM EDT ILD clinic staff note: I have reviewed the advanced practitioner's documentation on the date of service referenced in note, and I agree with, and take responsibility for the plan of care. Summary: Martha is a 73-year-old female who has been diagnosed with CREST syndrome since the age of 56. She has significant calcinosis, sclerodactyly, telangectasia and Raynaud's. She has long standing GERD. See by Dr. Blanchard and was referred for management of ILD. She was started on cellcept for possible NSIP in 12/24. She returns for follow up. Interval history: She is doing well. Denies any significant worsening of her symptoms. Although she is not walking due to hot weather, she is quite active in her around her house and working in her yd. Does not like to sit around in general. Her GERD has improved with elevation of head of the bed and PPI. Still has some throat clearing on and off. Noted to have anemia which is thought to be due to CellCept but hemoglobin is around 11.2 g. Taking iron supplements. No other side effects from CellCept thus far. Rest of the review of system is unremarkable. ILD risk factors: Lifelong nonsmoker. Worked in [employer] for 15 years and stopped working in 2000. No hot tubs, pets, birds or other exposures. Blood pressure 134/63, pulse 93, temperature 36.5 C (97.7 F), temperature source Tympanic, weight 55.7 kg (122 lb 12.8 oz), SpO2 97%.' Pertinent positive on exams include faint inspiratory crackles left greater than right. Sclerodactyly. Calcinosis. Telangiectasia. Normal S1 and S2 with no murmurs. Rest of the exam as per nurse practitioner's note. Data: PFT FEV1 FVC Ratio TLC DLCO 07/25 1.82L (81%) 2.10L (73%) 86 2.92L (56%) 39% predicted 05/26 1.87L (84%) 1.96L (70%) 96 53% predicted HR CT of chest: 09/25 Bilateral basilar predominant ground-glass opacity and reticular changes along with areas of traction bronchiectasis. She has upper lobe involvement with peripheral reticular and ground-glass opacities also with subpleural sparing. No significant honeycomb changes. Overall pattern of disease is highly suggestive of NSIP. Serology: ROCÍO 1 : 640 in a nucleolar pattern Echo 09/24: Normal LVEF. No wall motion abnormalities. No evidence of pulmonary hypertension. 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 On CellCept since December of 2023. Repeat pulmonary function testing along with her symptoms appear stable. Will be reasonable to followed clinical course with interval reassessment with imaging and PFT. GERD - well controlled. Plan: - continue 1.5 g twice daily of CellCept. CBC every 3 months. - continue iron supplements. - interval symptom reassessment in 6 months and plan for PFT and CT imaging in 12 months. - advised to receive flu, COVID and RSV vaccine. - GERD control with PPI. Head of the bed elevation and GERD precautions discussed. - Follow Up: Return in about 6 months (around 12/05/2024) for Clinic Visit. | For: Clinic Visit | Check-out note: 6 month f/u Dr. Villegas ILD clinic I spent a total of 40-54 minutes (exact time 40 mins) on the date of service in preparation, delivery, and documentation of the care provided to Martha Vargas excluding any time spent in the performance of separately billed services. Bruce Villegas MD Pulmonary Medicine, [place] [address] * Cammie Cunningham CRNP - 06/07/2024 9:44 AM EDT Thoracic Medicine Outpatient Clinic Note NAME: Martha Vargas : 1950 06/07/2024 History: Ms. Vargas is a 73 year old woman seen today for follow-up of ILD. Patient has a history of CREST/Scleroderma, GERD, ILD. Cellcept was started 12/2023 and titrated to max dose 1.5 gm BID. She has had mild anemia, thought to be caused by Cellcept. Last seen by Dr. Villegas and myself on 12/15/2023 and at that time was seen for initial visit in ILD clinic. She was previously followed by Dr. Blanchard. Interim History: Respiratory Symptoms: Cough - not much, slight at times Sputum - once in awhile Exercise Tolerance - SOB with moderate, stable- recovery seems quicker Hospitalizations - No ED Trips - No Nocturnal-Sleeping well at night; sleep number bed- HOB elevated- no heartburn anymore overnight; no tums at bedtime anymore Since last visit, she reports "I have anemia and I'm still short of breath." Continues to use Cellcept 1.5 gm BID. Has only used Albuterol HFA once in awhile. She has been doing yard work and gardening. She hasn't been going for walks lately, but plans to soon with the cooler weather. She seems to be tolerating Cellcept well. Medications: Current Outpatient Medications Medication Sig Dispense Refill Vitamin D3 50 MCG (1999) Oral Capsule [...] as needed for Anxiety. 30 Tablet 1 Meclizine HCl 25 MG Oral Tablet Chewable chew 1 Tablet by mouth 3 times a day as needed for Dizziness. 30 Tablet 1 Esomeprazole Magnesium 40 MG Oral Capsule Delayed Release TAKE ONE CAPSULE BY MOUTH EVERY DAY BEFORE BREAKFAST 100 Capsule 3 NIFEdipine ER Osmotic Release 30 MG Oral Tablet Extended Release 24 Hour (Procardia XL) TAKE ONE TABLET BY MOUTH EVERY DAY IN THE MORNING 100 Tablet 3 Hair Skin & Nails Oral Tablet Take by mouth. Primidone 50 MG Oral Tablet (Mysoline) TAKE ONE TABLET BY MOUTH TWO TIMES A DAY 200 Tablet 1 Mycophenolate Mofetil 500 MG Oral Tablet (CellCept) Take 3 Tablets by mouth in the morning and 3 Tablets before bedtime. 540 Tablet 0 Colchicine 0.6 MG Oral Tablet take 1 tablet by mouth daily 90 Tablet 1 Albuterol Sulfate HFA 108 (90 Base) MCG/ACT Inhalation Aerosol Solution Inhale 2 Puffs by mouth every 6 hours as needed for Wheezing. 54 g 1 Iron 325 (65 Fe) MG Oral Tablet Take by mouth. No current facility-administered medications for this visit. Review of Systems: General: (+) 4 lb weight loss, (+) appetite fair Skin: Denies rashes or lesions. Cardiac: Denies chest pain, palpitations, or edema. Resp: See History Abd: Denies pain, nausea, vomiting, reflux, heartburn, (+) dysphagia/epigastric discomfort at times Neuro: Denies headaches, dizziness Rheum: (+) Raynaud's Exam: BP 134/63 | Pulse 93 | Temp 36.5 C (97.7 F) (Tympanic) | Wt 55.7 kg (122 lb 12.8 oz) | SpO2 97%Comment: Room Air | BMI 20.28 kg/m | BSA 1.6 m Pleasant, thin older woman, no acute distress. Alert and oriented x3. Skin pink, warm, and dry. No murmurs auscultated. Heart rate and rhythm regular. No peripheral edema palpated. Respirations even and unlabored. Lungs with faint crackles in bases. No wheezes or rhonchi auscultated. Able to move all extremities without difficulty. Gait steady. PFT's 12/15/2023 05/15/2024 Fvc 2.02 (71%) 1.96 (70%) Fev1 1.87 (85%) 1.87 (87%) Obs index 93% 96% DLCO 9.40 (49%) 10.23 (53%) Assessment: 1. ILD: high suspicion for NSIP vs. possible chronic aspiration 2. CREST syndrome/Scleroderma 3. GERD- better controlled 4. HERRING, stable 5. Mild Anemia Plan: 1. Continue Cellcept 1.5 gm BID, CBC every 3 months. 2. Continue PPI and GERD precautions. 3. Continue to stay active and exercise. 4. Anemia management per Hematology. 5. Will consider repeat HR CT chest and PFT's in 12 months. 6. Follow up in [address] Villegas in ILD clinic. Instructed to call with any questions or problems. Cammie LAI, PROFESSOR OF SPECIAL EDUCATION Thoracic Medicine [facility] documented in this encounter Plan of Treatment Upcoming Encounters Date Type Department Care Team (Late st Contact Info) Description 06/19/2024 9:40 AM EDT Office Visit Rheumatology [address] [place] [address] Mihir Gomes MD [address] [place] [address] [place] [address] 06/29/2024 9:00 AM EDT Laboratory Laboratory, [facility] [address] [place] [phone] [facility] [place] [address] 08/24/2024 9:00 AM EST Laboratory Laboratory, [facility] [address] [facility] [place] [id number] [facility] [address] [facility] [place] [address] 08/31/2024 11:45 AM EST Office Visit Hematology/Oncology [facility] [address] [facility] [place] [phone] Jonah Felipe MD [address] [facility] [place] [address] 03/13/2025 7:15 AM EDT Imaging Radiology [facility] [address] [place] [address] 05/15/2025 7:40 AM EDT Office Visit Family Practice [facility] [address] [facility] [place] [address] Abelardo James MD [address] [facility] [place] [address] Scheduled Procedures Name Priority Associated Diagnoses Date/Ti [...] D LEVEL ONCE IN A LIFETIME-USE SMARTSET# [id number] Completed 06/09/2018 Zoster Vaccines Completed 04/14/2020, 11/03, [...] this encounter Medical Devices Implanted Type Area Lathe Tender Device Identifier Shelf Expiration Date Model / Serial / Lot Lens Intraoc 20.0 - [id number] - [id number] Implanted:Qty: 1 on 12/05/2018 by Rick Cantu MD at OR [facility] Left: Eye [employer] 06/02/2023 [id number] / [id number] / [id number] Lens Intraoc 16.0 - [id number] - [id number] Implanted:Qty: 1 on 12/12/2018 by Rick Cantu MD at OR [facility] Right: Eye [employer] 04/01/2023 [id number] / [id number] / [id number] documented as of this encounter Visit Diagnoses Diagnosis ILD (interstitial lung disease) (HCC)- Primary 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
--- OUTSIDE RECORDS SUMMARY | 2024-07-01 19:00 | External Medical Summary | Summary of Care ---
Author Name Unknown Organization [facility] Address [address] [facility] [place] [address] Phone [phone] Care Team Providers Care Oracle Soa Architect Name Role Phone Abelardo James MD Primary Care Provider [phone] Reason for Visit * Reason Comments Follow Up Encounter Details Date Type Department Care Team (Late st Contact Info) Description 05/31/2024 2:45 PM EDT Office Visit Hematology/Oncology [facility] [address] [facility] [place] [address] Jonah Felipe MD [address] [place] [address] CREST syndrome (HCC)*; Iron deficiency anemia due to chronic blood loss Allergies Active Allergy Reactions Criticality Noted Date Comments Nitrofurantoin Cough 12/15/2023 Omeprazole 12/26/2007 Itchiness and rash documented as of this encounter (statuses as of 05/31/2024) Medications Medication Sig Dispensed Refills Start Date [...] BEFORE BREAKFAST 100 Capsule 3 04/25/2023 Active Colchicine 0.6 MG Oral TabletIndications:Ca lcinosis cutis, Raynaud's syndrome, sclerodactyly and telangiectasia (CRST) syndrome (HCC) take 1 tablet by mouth daily 90 Tablet 1 07/18/2023 Active Albuterol Sulfate HFA 108 (90 Base) MCG/ACT Inhalation Aerosol SolutionIndications: Acute bronchitis, antibiotics not indicated Inhale 2 Puffs by mouth every 6 hours as needed for Wheezing. 18 g 2 07/21/2023 Active NIFEdipine ER Osmotic Release 30 MG Oral Tablet Extended Release 24 Hour (Procardia XL)Indications:CREST syndrome (HCC) TAKE ONE TABLET BY MOUTH EVERY DAY IN THE MORNING 100 Tablet 3 08/15/2023 Active Hair Skin & Nails Oral Tablet Take by mouth. Active Primidone 50 MG Oral Tablet (Mysoline) TAKE ONE TABLET BY MOUTH TWO TIMES A DAY 200 Tablet 1 04/10/2024 04/10/2025 Active Mycophenolate Mofetil 500 MG Oral Tablet (CellCept) Take 3 Tablets by mouth in the morning and 3 Tablets before bedtime. 540 Tablet 05/14/2024 Active documented as of this encounter (statuses as of 05/31/2024) Active Problems Problem Noted Date Diagnosed Date [...] as of this encounter (statuses as of 05/31/2024) Resolved Problems Problem Noted Date Diagnosed Date [...] as of this encounter (statuses as of 05/31/2024) Immunizations Name Administration Dates Next Due COVID-19 mRNA, LNP-s, No Pre serve, 2-Dose Series ([facility]) 12/10/2020,11/19/2020 Pneumococcal Conjugate Vacc, 13 Valent (Prevnar) [...] = 0.6 oz pure alcohol) As of 2..2006, the last noted alcohol intake was 2 [...] Sign Reading Time Taken Comments Blood Pressure 115/72 05/31/2024 2:34 PM EDT Pulse 88 05/31/2024 2:34 PM EDT Temperature 37.2 C (98.9 F) 05/31/2024 2:34 PM ED T Respiratory Rate - - Oxygen Saturation 96% 05/31/2024 2:34 PM EDT Inhaled Oxygen Concentration - - Weight 55.1 kg (121 lb 6.4 oz) 05/31/2024 2:34 P M EDT Height - - Body Mass Index 20.05 05/14/2024 9:03 AM EDT documented in this encounter Progress Notes * Jonah Felipe MD - 05/31/2024 2:45 PM EDT Hematology/Oncology Outpatient Consult Note Elvira Rubin [address] [place] [address] MARTHA VARGAS MR # [id number] :1950 73 years old female, Date of consultation:04/20/2024 DIAGNOSIS: -normocytic anemia, most likely related to the bone marrow suppression with the CellCept therapy which was started in December 2023. 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 She has interstitial lungdisease and for that she is on CellCept since 12/2023. She also may have intermittent GI bleed, upper GI endoscopy on 10/19/2023 showed friable nodular mucosa ( with contact bleeding). CURRENT TREATMENT: 05/31/2024, advised him to start oral iron in the form of ferrous sulfate 325 mg 3 days a week (Tuesday, Tuesday, Tuesday). DIAGNOSTIC WORKUP: She has underlying CREST syndrome for the last 22 years. Lately in the earlier in 2019, she started having increasing shortness of breath, she was seen by her primary-care provider, further workup showed findings suggestive interested lung disease on CT scan. She was then seen by Dr. Villegas and started her on CellCept initially 1 tablet twice a day for 1 month, increase to 2 tablets twice a day for another 1 month and now she is on 3 tablets twice a day. I reviewed her blood workup done in her case, before she was started on CellCept, she had a normal WBC count, hemoglobin was 12.4, MCV 97, Platelet count of 395351 In the last 3 months, slight drop in the hemoglobin level noted to around 10.7, MCV 97, normal WBC and normal Platelet count (03/21/2024) -Hemoglobin and hematocrit -10.2/32 (04/04/2024) Latest blood workup done on 04/19/2024: -WBC 6900, Hemoglobin and hematocrit -10.6/33, MCV 96, Platelet count of 627200. Anemia workup as follows: -Absolute reticulocyte count --> 77,000 -Serum iron: 100, TIBC 294, iron saturation 34% -Ferritin level--> 55 -serum creatinine level --> 0.8 -TSH --> 2.0 -folic acid--> > 20 -Vitamin B12 --> 550. INTERVAL HISTORY: She has come the clinic for the follow-up, accompanied by her in the office. Currently she is on CellCept, does complain of tiredness, shortness of breath on exertion, some mild coughing, no nausea no vomiting, no fever, no recent hospitalist, no black stool, no blood in the stool, intermittent abdominal pain mainly in the epigastrium with the cold foods, Past Medical History: Diagnosis Date Dyslipidemia 05/12/2020 [...] performed by Adriana Bruno DO at ENDOSCOPY [facility] COLONOSCOPY, DIAGNOSTIC (RECTUM) 10/07/2022 diverticulosis in sigmoid colon, otherwise normal / no specimens collected / 5 year recall / COLONOSCOPY FLEXIBLE PROXIMAL DIAGNOSTIC performed by Adriana Bruno DO at END[facility]COPY [facility] EGD, FLEXIBLE, DIAGNOSTIC 02/16/2018 acid reflux/ESOPHAGOGASTRODUODENOSCOPY (EGD), FLEXIBLE, TRANSORAL, DIAGNOSTIC performed by Adriana Bruno DO at END[facility]COPY [facility] EGD, FLEXIBLE, DIAGNOSTIC 08/20/2020 Maira esophagitis, severe reflux / ESOPHAGOGASTRODUODENOSCOPY (EGD), FLEXIBLE, TRANSORAL, DIAGNOSTIC performed by Adriana Bruno DO at END[facility]COPY [facility] EGD, FLEXIBLE, DIAGNOSTIC 10/22/2020 eso inflammation on bx / ESOPHAGOGASTRODUODENOSCOPY (EGD), FLEXIBLE, TRANSORAL, DIAGNOSTIC performed by Jordan Mukherjee MD at END[facility]COPY [facility] EGD, FLEXIBLE, DIAGNOSTIC 10/19/2023 small amount food, thick secreations stomach/biopsies show ulceration and inflammation/ESOPHAGOGASTRODUODENOSCOPY (EGD), FLEXIBLE, TRANSORAL, DIAGNOSTIC performed by Jennifer Young DO at END[facility]COPY [facility] EGD, FLEXIBLE, W/BIOPSY 01/10/2008 GERD and gastric irritation EXERCISE ECHO 12/14/2007 no ischemic changes at high workload achieved PARTIAL HYSTERECTOMY age 33 for endometriosis; left ovary remains REMOVE CATARACT, INSERT LENS PROSTH Left 12/05/2018 left EXTRACAPSULAR CATARACT REMOVAL WITH INTRAOCULAR LENS performed by Rick aCntu MD at [facility] REMOVE CATARACT, INSERT LENS PROSTH Right 12/12/2018 right EXTRACAPSULAR CATARACT REMOVAL WITH INTRAOCULAR LENS performed by Rick Cantu MD at OR [facility] Current Outpatient Medications Medication Sig Dispense Refill [...] EVERY DAY BEFORE BREAKFAST 100 Capsule 3 Colchicine 0.6 MG Oral Tablet take 1 tablet by mouth daily 90 Tablet 1 Albuterol Sulfate HFA 108 (90 Base) MCG/ACT Inhalation Aerosol Solution Inhale 2 Puffs by mouth every 6 hours as needed for Wheezing. 18 g 2 NIFEdipine ER Osmotic Release 30 MG Oral [...] 3 Tablets before bedtime. 540 Tablet 0 No current facility-administered medications for this visit. 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 Constitutional: Patient is alert, cooperative and oriented x 3. Well built female, Patient is in noacute distress. HEENT: No icterus, no pallor, Throat and pharynx normal. Sinuses are non-tender. Neck: Supple and without lymphadenopathy or masses. No JVD. No Palpable supraclavicular lymph nodes. Lungs: Few crepitations in the lung bases. Cardiovascular: Normal heart sounds, no murmurs.Regular rate and rhythm. Abdomen: Soft, nontender, no hepatomegaly, no splenomegaly. Bowel sounds are normal. Neurological: No gross focal neurological deficit; walks with a normal gait. Extremities: No finger clubbing, No cyanosis. No leg edema. Skin:: No skin rash. SPINE: No spinal or paraspinal tenderness. LABS: Blood workup done on 05/14/2024: -WBC 6000, Hemoglobin and hematocrit -11.2/34.6, Platelet count of 040719, MCV 96.9 -Serum iron: 58, TIBC 282, iron saturation 21%. -Ferritin level--> 38 -soluble transferrin receptor --> 1.0 which is in the normal range (04/1924). -Vitamin B12--> 550, folic acid --> > 20 (03/28/2024). -Absolute reticulocyte count --> 77,000, haptoglobin 134 (03/28/2024). IMAGING: CT chest( 09/28/2024) 1. Findings consistent with pulmonary fibrosis are again noted with bilateral subpleural reticular densities and ground-glass opacities with bibasilar predominance. No honeycombing. Mild bibasilar traction bronchiectasis. 2. Stable small hiatal hernia. The esophagus is again fluid-filled and dilated, similar to the prior exam. Please correlate clinically. 3. Two pulmonary nodules versus pleural plaques in the lung bases as measured above, stable in sizesince the prior chest CT ASSESSMENT AND PLAN: 73-year-old female, Who has underlying CREST syndrome over the last 20 years, now has developed pulmonary fibrosis, sheis on CellCept since December of 2023. Blood workup done before the start of the CellCept showed normal hemoglobin level above 12 g/dL. Now It is around 10 - 11 g/dL. Normal WBC, normal Platelet count, no neutropenia. Anemia workup is unremarkable, no evidence of B12 folic acid deficiency, Ferritin level is around 55. Normal kidney function, normal thyroid function test. Anemia could be related to the bone marrow suppression with CellCept but at the same time we are not seeing neutropenia or thrombocytopenia. Slight improvement of hemoglobin noted in the blood workupdone yesterday with hemoglobin around 10.6 g/dL. She denies any bleeding from the sites, had upper GI endoscopy earlier this year. No esophageal stretching needed at that time. She may have intermittent upper GI bleed. I reviewed her recent blood workup, hemoglobin level gradually improved to around 11.2, Ferritin level dropped down to around 38. I would like to start oral iron replacement therapy ferrous sulfate 325 mg 3 days a week (Tuesday, Tuesday, Tuesday), and see how she does. If she can not tolerate, she will let us know and then willconsider for IV iron in the form of Venofer. I am planning for CBCD, Ferritin, iron profile, reticulocyte count in about 4 weeks. I am planning to see her in about [address] Jonah Felipe Hem/Onc (This note was completed using the dictation program Fluency Direct. As such, there may be misspellings word substitutions, or other variations that should not change the essence of the clinical content of this encounter note. If there is need for further clarification, please direct questions to the provider listed above.) documented in this encounter Nursing Notes * Sue Milton MED ASSIST - 05/31/2024 2:37 PM EDT Patient identifed by name and birthdate Do you have any concerns about pain management for today's visit? Yes. Patient instructed to discuss pain concerns with provider during the visit today Living Will or Advance Directive for Health Care as noted on the problem list. [email or web address] is a way you can talk to your provider on line through e-mail. Would you like to sign up? I can activate it for you? ALREADY ACTIVE Filed Vitals: 05/31/24 1434 BP: 115/72 Pulse: 88 Temp: 37.2 C (98.9 F) TempSrc: Tympanic SpO2: 96% Weight: 55.1 kg (121 lb 6.4 oz) Patient was instructed to not get up on the exam table/exam chair until directed and assisted by their provider; patient is to remain seated in the chair/ wheelchair/ exam table/ exam chair for fall prevention and safety reasons. Patient is aware to have assistance to step down off exam table/exam chair with personnel. Patient voiced full comprehension of instructions. documented in this encounter Plan of Treatment Upcoming Encounters Date Type Department Care Team (Late st Contact Info) Description 06/07/2024 9:30 AM EDT Office Visit Pulmonary Medicine, [place] [address] [place] [address] Bruce Villegas MD [address] [place] [address] 06/19/2024 9:40 AM EDT Office Visit Rheumatology [place] [address] [facility] [place] [address] Mihir Gomes MD [address] [place] [address] 08/24/2024 11:40 AM EST Laboratory Laboratory [facility] [address] [place] [phone] [facility] [address] [place] [address] 08/31/2024 11:45 AM EST Office Visit Hematology/Oncology [facility] [place] [address] [place] [address] Jonah Felipe MD [address] [place] [address] 03/13/2025 7:15 AM EDT Imaging Radiology [address] [facility] [place] [address] 05/15/2025 7:40 AM EDT Office Visit Family Practice [facility] [address] [facility] [place] [address] Abelardo James MD [address] [facility] [place] [address] Scheduled Orders Name Type Priority Associated Diagnoses Orde r Schedule CBC WITH WBC DIFFERENTIAL Lab STAT CREST syndrome (HCC) Iron deficiency anemia due to chronic blood loss Expected: 07/01/2024, Expires: 05/31/2025 IRON SCREEN, INCLUDING TIBC Lab Routine CREST syndrome (HCC) Iron deficiency anemia due to chronic blood loss Expected: 07/01/2024, Expires: 05/31/2025 FERRITIN Lab Routine CREST syndrome (HCC) Iron deficiency anemia due to chronic blood loss Expected: 07/01/2024, Expires: 05/31/2025 RETICULOCYTE PANEL Lab Routine CREST syndrome (HCC) Iron deficiency anemia due to chronic blood loss Expected: 07/01/2024, Expires: 05/31/2025 Scheduled Procedures Name Priority Associated Diagnoses Date/Ti [...] D LEVEL ONCE IN A LIFETIME-USE SMARTSET# [id number] Completed 06/09/2018 Zoster Vaccines Completed 04/14/2020, 11/03, [...] this encounter Medical Devices Implanted Type Area Document Control Specialist Device Identifier Shelf Expiration Date Model / Serial / Lot Lens Intraoc 20.0 - [id number] - [id number] Implanted:Qty: 1 on 12/05/2018 by Rick Cantu MD at OR [facility] Left: Eye [employer] 06/02/2023 [id number] / [id number] / [id number] Lens Intraoc 16.0 - [id number] - [id number] Implanted:Qty: 1 on 12/12/2018 by Rick Cantu MD at [facility] Right: Eye [employer] 04/01/2023 [id number] / [id number] / [id number] documented as of this encounter Visit Diagnoses Diagnosis CREST syndrome (HCC)- Primary Systemic sclerosis Iron deficiency anemia due to chronic blood loss Iron deficiency anemia secondary to blood loss (chronic) Screening mammogram for breast cancer documented in this encounter Care Teams Oracle Soa Architect Relationship Specialty Start Date End Date Abelardo James MD [address] [place] [address] PCP - General Family Medicine 11/09/18 documented as of this encounter
--- OUTSIDE RECORDS SUMMARY | 2024-07-01 19:00 | External Medical Summary | Summary of Care ---
Author Name Unknown Organization [facility] Address [address] [facility] [place] [address] Phone [phone] Care Team Providers Care Design Project Manager Name Role Phone Abelardo James MD Primary Care Provider [phone] Reason for Visit * Reason Comments Rheum Follow Up Recheck Crest, ILD Encounter Details Date Type Department Care Team (Late st Contact Info) Description 06/19/2024 9:40 AM EDT Office Visit Rheumatology [address] [place] [address] Mihir Gomes MD [facility] [employer] [facility] [place] [address] CREST syndrome (HCC)*; ILD (interstitial lung disease) (HCC); Raynaud's disease without gangrene; Age-related osteoporosis without current pathological fracture Allergies Active Allergy Reactions Criticality Noted Date Comments Nitrofurantoin Cough 12/15/2023 Omeprazole 12/26/2007 Itchiness and rash documented as of this encounter (statuses as of 06/19/2024) Medications Medication Sig Dispensed Refills Start Date [...] as needed for Anxiety. 30 Tablet 1 3 Active Meclizine HCl 25 MG Oral Tablet ChewableIndications :Benign paroxysmal vertigo of left ear chew 1 Tablet by mouth 3 times a day as needed for Dizziness. 30 Tablet 1 3 Active Additional Information Patient not taking.Reported on 06/19/2024 NIFEdipine ER Osmotic Release 30 MG Oral Tablet Extended Release 24 Hour (Procardia XL)Indications:JOHN T syndrome (HCC) TAKE ONE TABLET BY MOUTH EVERY DAY IN THE MORNING 100 Tablet 3 3 Active Primidone 50 MG Oral Tablet (Mysoline) TAKE ONE TABLET BY MOUTH TWO TIMES A DAY 200 Tablet 1 4 04/10/20 25 Active Colchicine 0.6 MG Oral TabletIndications:C alcinosis cutis, Raynaud's syndrome, sclerodactyly and telangiectasia (CRST) syndrome (HCC) take 1 tablet by mouth daily 90 Tablet 1 4 Active Albuterol Sulfate HFA 108 (90 Base) MCG/ACT Inhalation Aerosol SolutionIndications :Acute bronchitis, antibiotics not indicated Inhale 2 Puffs by mouth every 6 hours as needed for Wheezing. 54 g 1 4 Active Mycophenolate Mofetil 500 MG Oral Tablet (CellCept) Take 3 Tablets by mouth in the morning and 3 Tablets before bedtime. 540 Tablet 4 Active Iron-Vitamin C 65-125 MG Oral Tablet (Vitron C)Indications:Iron deficiency anemia due to chronic blood loss,CREST syndrome (HCC) 1 tablet 3 days a week ( Tuesday, Tuesday, Tuesday). 30 Tablet 3 4 Active Esomeprazole Magnesium 40 MG Oral Capsule Delayed Release TAKE ONE CAPSULE BY MOUTH EVERY DAY BEFORE BREAKFAST 100 Capsule 3 4 Active Hair Skin & Nails Oral Tablet Take by mouth. 06/19/20 24 Discontinued Iron 325 (65 Fe) MG Oral Tablet Take by mouth. 06/19/20 24 Discontinued documented as of this encounter (statuses as of 06/19/2024) Active Problems Problem Noted Date Diagnosed Date [...] as of this encounter (statuses as of 06/19/2024) Resolved Problems Problem Noted Date Diagnosed Date [...] as of this encounter (statuses as of 06/19/2024) Immunizations Name Administration Dates Next Due COVID-19 [...] Never Smokeless Tobacco: Never Tobacco Cessation:Counseling Given: Not Answered Alcohol Use Standard Drinks/Week Comments Yes 0 [...] Sign Reading Time Taken Comments Blood Pressure - - Pulse - - Temperature 36.8 C (98.2 F) 06/19/2024 9:45 AM ED T Respiratory Rate - - Oxygen Saturation - - Inhaled Oxygen Concentration - - Weight 55.3 kg (122 lb) 06/19/2024 9:45 AM EDT Height - - Body Mass Index 20.15 05/14/2024 9:03 AM EDT documented in this encounter Progress Notes * Mihir Gomes MD - 06/19/2024 9:47 AM EDT Subjective: Patient seen today for further follow up evaluation of osteoporosis, raynaud's, scleroderma - limited, ILD. Since the last visit she did see pulmonology and is now on cellcept since December of this year. She is taking 1.5g BID. She is a little more anemic on it. She is now on iron orally. She feels like her shortness of breath is better after activities. She does sometimes get dry cough. She did have COVID several weeks ago and was mildly ill. Did not even know she had COVID until she lost her sense of taste about 4 days into her symptoms. Her main symptom was fatigue. She reports that she doesnot get any calcinosis of her fingertips as long she stays on colchicine. Raynaud's is stable.. Musculoskeletal ROS: . Normal Other ROS: . Constitutional: fatigue . Head normal . Eyes: normal . Ears, nose, throat, mouth: See above . Cardiovascular: normal . Respiratory: dyspnea on exertion, cough . Gastrointestinal: normal . Genitourinary: normal . Skin: skin thickening, fingers turning white, and cyanosis of fingers All other ROS reviewed and negative Social History: Social History Tobacco Use Smoking status: Never Smokeless tobacco: Never Substance Use Topics Alcohol use: Yes Alcohol/week: 0.0 standard drinks of alcohol Comment: As of 11.19.2006, the last noted alcohol intake was 2 ounces. wine occosionally Vaping/E-Cigarette Use Vaping/E-Cigarette Use Never User Vaping/E-Cigarette Substances Vaping/E-Cigarette Devices Current Outpatient Medications Medication Sig Dispense Refill [...] EVERY DAY BEFORE BREAKFAST 100 Capsule 3 Meclizine HCl 25 MG Oral Tablet Chewable chew 1 Tablet by mouth 3 times a day as needed for Dizziness. (Patient not taking: Reported on 06/19/2024) 30 Tablet 1 No current facility-administered medications for this visit. Physical Exam: Temp 36.8 C (98.2 F) (Infrared ) | Wt 55.3 kg (122 lb) | BMI 20.15 kg/m | BSA 1.6 m General: alert, no distress, and well nourished HENT: normocephalic, external ears normal, no mucosal erythema, no mucosal edema, moist mucosa, no oral ulcers Eye Exam: PERRL, EOMI, conjunctiva are pink and non-injected, sclera clear Neck: supple, no adenopathy, thyroid normal size, non-tender, without nodularity Lymph: no palpable lymphadenopathy Heart: regular rate & rhythm and no gallops Lungs: clear to auscultation dry crackles noted at the bases Abdomen: abdomen soft, non-tender, and normal bowel sounds Skin: Sclerodactyly noted to the hands. No digital ulcers or calcinosis Musculoskeletal Exam: . Normal Assessment: (M34.1) CREST syndrome ([facility]) (primary encounter diagnosis) (J84.9) ILD (interstitial lung disease) ([facility]) (I73.00) Raynaud's disease without gangrene (M81.0) Age-related osteoporosis without current pathological fracture She is doing well from her scleroderma, Raynaud's and ILD. Remains on CellCept through Pulmonology. Plan: 1. Discussed getting the flu shot and RSV vaccine, does not need COVID booster as she just had COVID 2. Continues on CellCept 3. Continue with colchicine and Procardia 4. Contact with any issues 5. Return to clinic 1 year Mihir Gomes MD Department of Rheumatology documented in this encounter Nursing Notes * Jose Madrid LPN - 06/19/2024 9:43 AM EDT Chief Complaint Patient presents with Rheum Follow Up Recheck Crest, ILD documented in this encounter Plan of Treatment Upcoming Encounters Date Type Department Care Team (Late st Contact Info) Description 06/29/2024 9:00 AM EDT Laboratory [facility], [facility] [address] [facility] [address] Erickson Far[facility] [address] [facility] [place] [address] 08/24/2024 9:00 AM EST Laboratory Laboratory, [facility] [address] [facility] [place] [address] Erickson Farooq [address] [facility] [place] [address] 08/31/2024 11:45 AM EST Office Visit Hematology/Oncology [facility] [address] [place] [phone] Jonah Felipe MD [address] [facility] [place] [address] 03/13/2025 7:15 AM EDT Imaging Radiology [address] [place] [address] 05/15/2025 7:40 AM EDT Office Visit Family Practice [facility] [address] [place] [address] Abelardo James MD [address] [place] [address] 06/20/2025 10:20 AM EDT Office Visit Rheumatology [place] [address] [place] [address] Mihir Gomes MD [facility] [employer] [address] [place] [address] Scheduled Procedures Name Priority Associated Diagnoses Date/Ti [...] D LEVEL ONCE IN A LIFETIME-USE SMARTSET# [id number] Completed 06/09/2018 Zoster Vaccines Completed 04/14/2020, 11/03, [...] this encounter Medical Devices Implanted Type Area Analyst Programmer Device Identifier Shelf Expiration Date Model / Serial / Lot Lens Intraoc 20.0 - [id number] - [id number] Implanted:Qty: 1 on 12/05/2018 by Rick Cantu MD at OR [facility] Left: Eye [employer] 06/02/2023 [id number] / [id number] / [id number] Lens Intraoc 16.0 - [id number] - [id number] Implanted:Qty: 1 on 12/12/2018 by Rick Cantu MD at OR [facility] Right: Eye BAUSCH [employer] LOMB 04/01/2023 [id number] / [id number] / [id number] documented as of this encounter Visit Diagnoses Diagnosis CREST syndrome (HCC)- Primary Systemic sclerosis ILD (interstitial lung disease) (HCC) Postinflammatory pulmonary fibrosis Raynaud's disease without gangrene Age-related osteoporosis without current pathological fracture Senile osteoporosis Screening mammogram for breast cancer documented in this encounter Care Teams Design Project Manager Relationship Specialty Start Date End Date Abelardo James MD [address] [place] [address] PCP - General Family Medicine 11/09/18 documented as of this encounter"
--- OUTSIDE RECORDS SUMMARY | 2024-07-01 19:00 | External Medical Summary | Summary of Care ---
Author Name Unknown Organization [facility] Address [address] [place] [address] Phone [phone] Care Team Providers Care Barrel Loader Name Role Phone Abelardo James MD Primary Care Provider [phone] Reason for Visit * Reason Comments Pulmonary Function Test Encounter Details Date Type Department Care Team (Latest Contact Info) Description 05/15/2024 2:30 PM EDT PulmDiagnostic Pulmonary Function Lab, [address] [id number], Pft Room [address] [place], [place] [id number] ILD (interstitial lung disease) ([facility])* Allergies Active Allergy Reactions Criticality Noted Date Comments Nitrofurantoin Cough 12/15/2023 Omeprazole 12/26/2007 Itchiness and rash documented as of this encounter (statuses as of 05/15/2024) Medications Medication Sig Dispensed Refills Start Date [...] as of this encounter (statuses as of 05/15/2024) Active Problems Problem Noted Date Diagnosed Date [...] as of this encounter (statuses as of 05/15/2024) Resolved Problems Problem Noted Date Diagnosed Date [...] as of this encounter (statuses as of 05/15/2024) Immunizations Name Administration Dates Next Due COVID-19 mRNA, LNP-s, No Pre serve, 2-Dose Series (Glofox) 12/10/2020,11/19/2020 Pneumococcal Conjugate Vacc, 13 Valent (Prevnar) 05/09/2017 Pneumococcal Polysaccharide PPV23 (Pneumovax) 05/11/2018 Seasonal Influenza, PF, 6 M & above, IM , (FluLaval or Fluzone) 06/19/2020,07/19/2018 Seasonal Influenza, Quadriva lent Hd (Fluzone Hd) 07/04/2023,08/24/2021 Seasonal Influenza, Quadriva lent, No Preserve, IM 08/03/2015 Seasonal Influenza, Split, I IV3, With Preserve, Inj 07/31/2016,07/11/2012,07/03/2011,08/01,08/03/2008 Seasonal Influenza, Trivalen t, Adjuvanted, 65+ yrs 07/28/2022,07/02/2019 TDAP (age 10 and older)(Boostrix) 06/21/2022,10/2011 Varicella Zoster Vaccine (Adult) 09/06/2012 Zoster Vaccine Recombinant (Shingrix) 04/14/2020 ,11/12/2019 documented as of this encounter Social History Tobacco Use Types Packs/Day Years Used Date Smoking Tobacco: Never Smokeless Tobacco: Never Alcohol Use Standard Drinks/Week Comments Yes 0 (1 standard drink = 0.6 oz pure alcohol) As of 2.2006, the last noted alcohol intake was 2 ounces. wine occosionally PHQ-2 Answer Date Recorded PHQ-2 Score 0 08/06/2018 Hunger Vital Sign Answer Date Recorded Within the past 12 months, y ou worried that your food would run out before you got the money to buy more. Never true 03/27/20 Within the past 12 months, t he [...] on file documented as of this encounter Nursing Notes * Trina Mcpherson RRT-LIFELINE REPRESENTATIVES - 05/15/2024 2:39 PM EDT Patient identified by name and date of . Spirometry and DLCO performed. documented in this encounter Plan of Treatment Upcoming Encounters Date Type Department Care Team (Late st Contact Info) Description 05/31/2024 2:45 PM EDT Office Visit Hematology/Oncology [facility] [address] [facility] [place] [phone] Jonah Felipe MD [address] [facility] [place] [address] 06/07/2024 9:30 AM EDT Office Visit Pulmonary Medicine, [place] [address] [place] [address] Bruce Villegas MD [address] [place] [address] 06/19/2024 9:40 AM EDT Office Visit Rheumatology [facility] [address] [place] [address] Mihir Gomes MD [address] [facility] [place] [address] 03/13/2025 7:15 AM EDT Imaging Radiology [address] [place] [address] 05/15/2025 7:40 AM EDT Office Visit Family Practice [facility] [address] [place] [address] Abelardo James MD [address] [place] [address] Pending Results Name Type Priority Associated Diagnoses Date /Time DIFFUSION CAPACITY (DLCO) Procedures Routine ILD (interstitial lung disease) ([facility]) 05/15/2024 2:17 PM EDT BASIC SPIROMETRY Procedures Routine ILD (interstitial lung disease) ([facility]) 05/15/2024 2:17 PM EDT Scheduled Procedures Name Priority Associated Diagnoses [...] 11/23/2028 11/23/2023, 11/04, 05/05/2022, Additional history exists DTaP,Tdap,and Td Vaccines (3 - Td or Tdap) 06/21/2032 06/21/2022, 05/03/2012 Pneumococcal Vaccine: 65+ Years Completed 05/11/2018, 05/09/2017 VITAMIN D LEVEL ONCE IN A LIFETIME-USE SMARTSET# [id number] Completed 06/09/2018 Zoster Vaccines Completed 04/14/2020, 11/03, [...] this encounter Medical Devices Implanted Type Area Operational Review Sergeant Device Identifier Shelf Expiration Date Model / Serial / Lot Lens Intraoc 20.0 - [id number] - [id number] Implanted:Qty: 1 on 12/05/2018 by Rick Cantu MD at OR [facility] Left: Eye BA[employer]CH [employer]OMB 06/02/2023 [id number] / [id number] / [id number] Lens Intraoc 16.0 - [id number] - [id number] Implanted:Qty: 1 on 12/12/2018 by Rick Cantu MD at OR [facility] Right: Eye BAUSCH [employer] LOMB 04/01/2023 [id number] / [id number] / [id number] documented as of this encounter Procedures Procedure Name Priority Date/Time Associated Diagnosis Comments DIFFUSION CAPACITY (DLCO) Routine 05/15/2024 2:17 PM EDT ILD (interstitial lung disease) (HCC) BASIC SPIROMETRY Routine 05/15/2024 2:17 PM EDT ILD (interstitial lung disease) (HCC) documented in this encounter Visit Diagnoses Diagnosis ILD (interstitial lung disease) (HCC)- Primary Postinflammatory pulmonary fibrosis Screening mammogram for breast cancer documented in this encounter Care Teams Barrel Loader Relationship Specialty Start Date End Date Abelardo James MD [address] [address] PCP - General Family Medicine 11/09/18 documented as of this encounter
--- OUTSIDE RECORDS SUMMARY | 2024-07-01 19:00 | External Medical Summary | Summary of Care ---
Author Name Unknown Organization [facility] Address [address] [facility] [place] [address] Phone [phone] Care Team Providers Care Fish Farmer Name Role Phone Andressa James MD Primary Care Provider [phone] Reason for Visit * Reason Comments Medication Refill Encounter Details Date Type Department Care Team (Late st Contact Info) Description 06/01/2024 Refill Dermatology [facility] [address] [place] [address] Abimbola Melchor MD Calcinosis cutis, Raynaud's syndrome, sclerodactyly and telangiectasia (CRST) syndrome ([facility]) Allergies Active Allergy Reactions Criticality Noted Date Comments Nitrofurantoin Cough 12/15/2023 Omeprazole 12/26/2007 Itchiness and rash documented as of this encounter (statuses as of 06/01/2024) Medications Medication Sig Dispensed Refills Start Date [...] DAY 200 Tablet 1 04/10/2024 5 Active Mycophenolate Mofetil 500 MG Oral Tablet (CellCept) Take 3 Tablets by mouth in the morning and 3 Tablets before bedtime. 540 Tablet 05/14/2024 Active Colchicine 0.6 MG Oral TabletIndications:C alcinosis cutis, Raynaud's syndrome, sclerodactyly and telangiectasia (CRST) syndrome (HCC) take 1 tablet by mouth daily 90 Tablet 1 06/01/2024 Active Albuterol Sulfate HFA 108 (90 Base) MCG/ACT Inhalation Aerosol SolutionIndications :Acute bronchitis, antibiotics not indicated Inhale 2 Puffs by mouth every 6 hours as needed for Wheezing. 54 g 1 06/01/2024 Active Colchicine 0.6 MG Oral TabletIndications:C alcinosis cutis, Raynaud's syndrome, sclerodactyly and telangiectasia (CRST) syndrome (HCC) take 1 tablet by mouth daily 90 Tablet 1 07/18/2023 4 Discontinue d(Refill) documented as of this encounter (statuses as of 06/01/2024) Active Problems Problem Noted Date Diagnosed Date [...] as of this encounter (statuses as of 06/01/2024) Resolved Problems Problem Noted Date Diagnosed Date [...] as of this encounter (statuses as of 06/01/2024) Immunizations Name Administration Dates Next Due COVID-19 [...] encounter Miscellaneous Notes * Telephone Encounter - Andressa James MD - 06/01/2024 11:08 AM EDTSigned Prescriptions: Disp Refills Colchicine 0.6 MG Oral Tablet 90 Tab*1 Sig: take 1 tablet by mouth daily Authorizing Provider: ANDRESSA JAMES * Telephone Encounter - Blaire Sadler LPN - 06/01/2024 11:01 AM EDT Pending Prescriptions: Disp Refills Colchicine 0.6 MG Oral Tablet 90 Tab*1 Sig: take 1 tablet by mouth daily documented in this encounter Plan of Treatment Upcoming Encounters Date Type Department Care Team (Late st Contact Info) Description 06/07/2024 9:30 AM EDT Office Visit Pulmonary Medicine, [place] [address] [place] [address] Bruce Villegas MD [address] [place], [place] [id number] 06/19/2024 9:40 AM EDT Office Visit Rheumatology [address] [place] [address] Mihir Gomes MD [address] [place] [address] [place] [address] 06/29/2024 9:00 AM EDT Laboratory Laboratory, [facility] [address] [place] [address] [address] [place] [address] 08/24/2024 9:00 AM EST Laboratory Laboratory, [facility] [address] [place] [address] Erickson Farooq [address] [place] [address] 08/31/2024 11:45 AM EST Office Visit Hematology/Oncology [facility] [address] [place] [address] Jonah Felipe MD [address] [place] [address] 03/13/2025 7:15 AM EDT Imaging Radiology [address] [facility] [place] [address] 05/15/2025 7:40 AM EDT Office Visit Family Practice [facility] [address] [place] [address] Andressa James MD [address] [place] [address] Scheduled Procedures Name Priority Associated Diagnoses Date/Ti [...] D LEVEL ONCE IN A LIFETIME-USE SMARTSET# [id number] Completed 06/09/2018 Zoster Vaccines Completed 04/14/2020, 11/03, [...] this encounter Medical Devices Implanted Type Area Clay Artisan Device Identifier Shelf Expiration Date Model / Serial / Lot Lens Intraoc 20.0 - [id number] - [id number] Implanted:Qty: 1 on 12/05/2018 by Rick Cantu MD at OR [facility] Left: Eye [employer]CH [employer]OM[employer] 06/02/2023 [id number] / [id number] / [id number] Lens Intraoc 16.0 - [id number] - [id number] Implanted:Qty: 1 on 12/12/2018 by Rick Cantu MD at OR [facility] Right: Eye BAUSCH & LOMB 04/01/2023 [id number] / [id number] / [id number] documented as of this encounter Visit Diagnoses Diagnosis Calcinosis cutis, Raynaud's syndrome, sclerodactyly and telangiectasia (CRST) syndrome (HCC) Screening mammogram for breast cancer documented in this encounter Care Teams Fish Farmer Relationship Specialty Start Date End Date Andressa James MD [address] [place] [address] PCP - General Family Medicine 11/09/18 documented as of this encounter
--- OUTSIDE RECORDS SUMMARY | 2024-07-01 19:00 | External Medical Summary | Summary of Care ---
Author Name Unknown Organization [facility] Address [address] [address] Phone [phone] Care Team Providers Care Meeting Manager Name Role Phone Andressa Manrique MD Primary Care Provider [phone] Reason for Visit * Reason Comments Medication Refill Encounter Details Date Type Department Care Team (Late st Contact Info) Description 06/12/2024 Refill Family Practice [facility] [address] [facility] [place] [address] Andressa Manrique MD [address] [facility] [place] [address] Allergies Active Allergy Reactions Criticality Noted Date Comments Nitrofurantoin Cough 12/15/2023 Omeprazole 12/26/2007 Itchiness and rash documented as of this encounter (statuses as of 06/12/2024) Medications Medication Sig Dispensed Refills Start Date [...] for Dizziness. 30 Tablet 1 11/23/2022 Active NIFEdipine ER Osmotic Release 30 MG [...] BEFORE BREAKFAST 100 Capsule 3 06/12/2024 Active Esomeprazole Magnesium 40 MG Oral Capsule Delayed Release TAKE ONE CAPSULE BY MOUTH EVERY DAY BEFORE BREAKFAST 100 Capsule 3 04/25/2023 4 Discontinue d(Refill) documented as of this encounter (statuses as of 06/12/2024) Active Problems Problem Noted Date Diagnosed Date [...] as of this encounter (statuses as of 06/12/2024) Resolved Problems Problem Noted Date Diagnosed Date [...] as of this encounter (statuses as of 06/12/2024) Immunizations Name Administration Dates Next Due COVID-19 mRNA, LNP-s, No Pre serve, 2-Dose Series ([employer]) 12/10/2020,11/19/2020 Pneumococcal Conjugate Vacc, 13 Valent (Prevnar) [...] No 03/27/2024 Does the household have a [facility] source of income? (Household - for ages [...] encounter Miscellaneous Notes * Telephone Encounter - Roxann Barnes [facility] - 06/12/2024 11:19 AM EDTSigned Prescriptions: Disp Refills Esomeprazole Magnesium 40 MG Oral Capsule *100 Ca*3 Sig: TAKE ONE CAPSULE BY MOUTH EVERY DAY BEFORE BREAKFASTAuthorizing Provider: ANDRESSA MANRIQUE User: ROXANN BOONE documented in this encounter Plan of Treatment Upcoming Encounters Date Type Department Care Team (Late st Contact Info) Description 06/19/2024 9:40 AM EDT Office Visit Rheumatology [address] [place] [address] Mihir Gomes MD [address] [facility] [place] [address] 06/29/2024 9:00 AM EDT Laboratory Laboratory, [facility] [address] [facility] [id number] [facility] [address] [place] [address] 08/24/2024 9:00 AM EST Laboratory Laboratory, [facility] [address] [place] [id number] [place], [facility] [address] [place] [address] 08/31/2024 11:45 AM EST Office Visit Hematology/Oncology [facility] [address] [facility] [place] [address] Jonah Felipe MD [address] [facility] [place] [address] 03/13/2025 7:15 AM EDT Imaging Radiology [facility] [address] [facility] [address] [facility] [place] [address] 05/15/2025 7:40 AM EDT Office Visit Family Practice [facility] [address] [facility] [address] Andress[facility] [address] [facility] [address] Scheduled Procedures Name Priority Associated Diagnoses Date/Ti [...] D LEVEL ONCE IN A LIFETIME-USE SMARTSET# [id number] Completed 06/09/2018 Zoster Vaccines Completed 04/14/2020, 11/03, [...] this encounter Medical Devices Implanted Type Area Feeder Catcher Tobacco Device Identifier Shelf Expiration Date Model / Serial / Lot Lens Intraoc 20.0 - [id number] - [id number] Implanted:Qty: 1 on 12/05/2018 by Rick Cantu MD at OR [facility] Left: Eye [employer] 06/02/2023 [id number] / [id number] / [id number] Lens Intraoc 16.0 - [id number] - [id number] Implanted:Qty: 1 on 12/12/2018 by Rick Cantu MD at OR [facility] Right: Eye [employer] 04/01/2023 [id number] / [id number] / [id number] documented as of this encounter Care Teams Meeting Manager Relationship Specialty Start Date End Date Andressa Manrique MD [address] [place] [address] PCP - General Family Medicine 11/09/18 documented as of this encounter
--- OUTSIDE RECORDS SUMMARY | 2024-07-01 19:00 | External Medical Summary | Summary of Care ---
Author Name Unknown Organization [facility] Address [address] [address] Phone [phone] Care Team Providers Care Genetic Technologist Name Role Phone Sachin Buckner MD Primary Care Provide r Reason for Visit * Reason Comments Follow Up NEW PATIENT Encounter Details Date Type Department Care Team (Late st Contact Info) Description 05/09/2017 5:20 PM EDT Office Visit Family Practice [facility] [address] [place] [address] Sachin Buckner MD [address] [place] [address] [place] [address] CREST syndrome (HCC)*; Anxiety state; Physical exam, annual; Menopause; Screening for osteoporosis; Not vaccinated against Streptococcus pneumoniae Allergies Active Allergy Reactions Criticality Noted Date Comments Omeprazole 12/26/2007 Itchiness and rash documented as of this encounter (statuses as of 06/18/2024) Medications Medication Sig Dispensed Refills Start Date End Date Status LORAzepam (ATIVAN) 0.5 MG TabletIndication s:Anxiety state Take 1 Tab by mouth every 6 hours as needed for Anxiety. 30 Tab 1 09/11/2015 05/09/2017 Discontinued (Refill) Esomeprazole Magnesium (NEXIUM) 20 MG packet Take 20 mg by mouth daily before breakfast. 30 Each 11 10/31/2015 01/26/2018 Discontinued (Refill) albuterol (PROAIR HFA) 108 (90 BASE) MCG/ACT inhalerIndicatio ns:Cough Use two puffs four times a day-as needed for cough/chest congestion 1 Inhaler 3 05/24/2016 05/11/2018 Discontinued (Discharged) amLODIPine (NORVASC) 5 MG TabletIndication s:Raynaud's disease without gangrene Take 1 Tab by mouth every night at bedtime. 30 Tab 4 11/15/2016 10/31/2017 Discontinued (Refill) primidone (MYSOLINE) 50 MG Tablet TAKE 1 TABLET BY MOUTH TWO TIMES DAILY 60 Tab 5 03/21/2017 09/18/2017 Discontinued (Refill) LORAzepam (ATIVAN) 0.5 MG TabletIndication s:Anxiety state Take 1 Tab by mouth every 6 hours as needed for Anxiety. 30 Tab 1 05/09/2017 05/11/2018 Discontinued (Refill) documented as of this encounter (statuses as of 06/18/2024) Active Problems Problem Noted Date Diagnosed Date CREST syndrome 10/21/2011 Essential tremor 12/07/2002 documented as of this encounter (statuses as of 06/18/2024) Resolved Problems Problem Noted Date Diagnosed Date Resolved Date Esophageal reflux 01/10/2008 01/26/2018 Overview: esophageal reflux [...] as of this encounter (statuses as of 06/18/2024) Immunizations Name Administration Dates Next Due Pneumococcal Conjugate Vacc, 13 Valent (Prevnar) 05/09/2017 Seasonal Influenza, Quadriva lent, No Preserve, IM 08/03/2015 Seasonal Influenza, Trivalen t, (IIV3), with Preserv, (Fluzone) 07/31/2016,07/11/2012,07/03/2011,2008,08/03/2008 TDAP (age 10 and older)(Boostrix) 05/03/2012 Varicella Zoster Vaccine (Adult) 09/06/2012 documented as of this encounter Social History Tobacco Use Types Packs/Day Years Used Date Smoking Tobacco: Never Smokeless Tobacco: Never Alcohol Use Standard Drinks/Week Comments Yes 0 (1 standard drink = 0.6 oz pure alcohol) As of 2..2006, the last noted alcohol intake was 2 ounces. wine occosionally Sex and Gender Information Value Date Recorded Sex Assigned at Female 03/27/2024 4:33 PM EDT Gender Identity Female 03/27/2024 4:33 PM EDT Sexual Orientation Straight 03/27/2024 4: 33 PM EDT Job Start Date Occupation Industry Not on file Not on file Not on file documented as of this encounter Last Filed Vital Signs Vital Sign Reading Time Taken Comments Blood Pressure 138/72 05/09/2017 5:05 PM EDT Pulse 64 05/09/2017 5:05 PM EDT Temperature 36.9 C (98.5 F) 05/09/2017 5:05 PM ED T Respiratory Rate 16 05/09/2017 5:05 PM EDT Oxygen Saturation - - Inhaled Oxygen Concentration - - Weight 57.6 kg (127 lb) 05/09/2017 5:05 PM EDT Height - - Body Mass Index 21.13 01/28/2017 8:32 AM EDT documented in this encounter Patient Instructions * Patient Instructions* Sachin Buckner MD - 05/09/2017 5:23 PM EDT BMI (Body Mass Index) is the number obtained by dividing a person's weight in kilograms by his or her height in meters squared. BMI is used in determining obesity. BMI is not used to determine a person's actual percentage of body fat, but it is a good tool to retail leader weight in terms of what is healthy and unhealthy. It is used to identify adults at increased risk for developing weight related medical problems. Estimated body mass index is 21.13 kg/(m^2) as calculated from the following: Height as of 01/28/17: 1.651 m (5' 5"). Weight as of this encounter: 57.6 kg (127 lb). Underweight - BMI less than 22 kg/m2 (65+ yrs of age) or less than 18.5 kg/m2 (18+ yrs) - Many factors contribute to a low BMI, such as: * Eating Disorders * Medical Conditions * Depression * Lack of Food or Malnourishment - Being underweight increases the risk of developing: * Poor Bone Health and Osteoporosis * Anemia * More Severe and Frequent Infections (due to a weakened immune system) * Menstrual Irregularity and/or Infertility. - With a BMI of 15.0 to 18.4, it is recommended you discuss your current BMI with your health care provider documented in this encounter Progress Notes * Sachin Buckner MD - 05/09/2017 5:23 PM EDT Patient counseling on weight management given. 05/09/2017 Author: Sachin Buckner MD Assessment/Plan Medications Discontinued During This Encounter Medication Reason LORAzepam (ATIVAN) 0.5 MG Tablet Refill Pt is a 66 year old female here for the following problems/concerns: (M34.1) CREST syndrome (HCC) (primary encounter diagnosis) Plan: COMPR METAB PANEL, CBC, TSH W/FT4 IF TSH IS INDICATED Suggested taking 1/2 tablet of ccb (F41.1) Anxiety state Plan: LORAzepam (ATIVAN) 0.5 MG Tablet Sparing use of benzo I have reviewed the patients controlled substance dispensing history in the Prescription Drug Monitoring Program in compliance with the [facility] regulations before prescribing a controlled substance. (Z00.00) Physical exam, annual Plan: LIPID PANEL (Z78.0) Menopause Plan: DEXA AXIAL SKELETON ([facility] ONLY) (Z13.820) Screening for osteoporosis Plan: DEXA AXIAL SKELETON ([facility] ONLY) (Z23) Not vaccinated against Streptococcus pneumoniae Plan: PNEUMOCOCCAL VACC, PCV13, 6 WEEKS TO 18 YRS, IM Patient and or guardian communicated understanding and agreement of treatment plan including medications and there common side effects if indicated. All questions answered. Follow Up: Return in about 1 year (around 05/09/2018), or if symptoms worsen or fail to improve. CC/HPI: Martha Vargas is a 66 year old female Chief Complaint Patient presents with FOLLOW UP NEW PATIENT Brief Clinical History Ms. Vargas is a 66 year old woman with systemic sclerosis, last seen in primary care 7 months ago (09-22-16). Here for recheck Sparing use of ativan Crest is stable Has not started ccb Some hand pain Sees rheum Problem list: Patient Active Problem List Diagnosis Code FAM HX COLON CANCER- Father Z80.0 Essential tremor G25.0 Family history of other cardiovascular diseases Z82.49 FAM HX-DIABETES MELLITUS Z83.3 ADVANCE DIRECTIVE INFORMATION Esophageal reflux K21.9 Other specified gastritis without mention of hemorrhage K29.60 CREST syndrome (HCC) M34.1 Past Medical History: Past Medical History: Diagnosis Date Esophageal reflux 01/10/08 esophageal reflux Other specified gastritis without mention of hemorrhage 01/10/08 mild gastric irritation Past Surgical History: Past Surgical History: Procedure Laterality Date COLONOSCOPY 10/09 negative- repeat in 5 years due to FH colon cancer in father COLONOSCOPY, DIAGNOSTIC (RECTUM) 11/11/2011 normal COLONOSCOPY, DIAGNOSTIC (RECTUM) 01/28/2017 COLONOSCOPY FLEXIBLE PROXIMAL DIAGNOSTIC performed by Adriana Bruno DO at [facility] EGD, FLEXIBLE, W/BIOPSY 01/10/08 GERD and gastric irritation EXERCISE ECHO 12/14/07 no ischemic changes at high workload achieved PARTIAL HYSTERECTOMY age 33 for endometriosis; left ovary remains Medication List: Current Outpatient Prescriptions Medication Sig Dispense Refill LORAzepam (ATIVAN) 0.5 MG Tablet Take 1 Tab by mouth every 6 hours as needed for Anxiety. 30 Tab 1 primidone (MYSOLINE) 50 MG Tablet TAKE 1 TABLET BY MOUTH TWO TIMES DAILY 60 Tab 5 albuterol (PROAIR HFA) 108 (90 BASE) MCG/ACT inhaler Use two puffs four times a day-as needed for cough/chest congestion 1 Inhaler 3 Esomeprazole Magnesium (NEXIUM) 20 MG packet Take 20 mg by mouth daily before breakfast. 30 Each 11 amLODIPine (NORVASC) 5 MG Tablet Take 1 Tab by mouth every night at bedtime. 30 Tab 4 Allergies: Omeprazole Problem list, Past Medical History, Family history and social history reviewed and updated in EPIC EHR ROS: Constitutional ROS: No change in weight, No weakness and No fevers, sweats, or chills Pulmonary ROS: No cough, sputum, or hemoptysis, No wheezing, No rales, No shortness of breath and No recent change in breathing Cardiovascular ROS: No chest pain, No shortness of breath, No dyspnea on exertion, No orthopnea, Noparoxysmal nocturnal dyspnea, No edema, No palpitations and No syncope Gastrointestinal ROS: No abdominal pain, No change in bowel habits, No significant heartburn, No significant change in appetite, No nausea, vomiting, diarrhea, or constipation, No hematemesis, No blood in stools or black tarry stools, No abdominal bloating or early satiety and No dysphagia Vitals: BP 138/72 | Pulse 64 | Temp (Src) 98.5 (Tympanic) | Resp 16 | Wt 127 lbs (57.607kg) | BMI 21.13 kg/m | BSA 1.63 m BMI: 21.13 kg/m Exam: General: alert, healthy, no distress, well nourished and well developed Head: Normocephalic, No masses, lesions, tenderness or abnormalities Heart: regular rate & rhythm, no murmurs and no gallops Lungs: chest symmetric with normal AP diameter, no chest deformities noted, no chest wall tenderness, lungs clear to auscultation Abdomen: abdomen soft, non-tender, no masses, no hepatosplenomegaly, no rebound or guarding Extremities: no edema, no clubbing, no cyanosis Assessment and plan located at the top of the page documented in this encounter Nursing Notes * Unique Llyes LPN - 05/09/2017 5:20 PM EDT Pt here for med check today, and get established with you and asking if need labs * Unique Lyles LPN - 05/09/2017 5:20 PM EDT Pre-Administration Time Out Procedure Performed: Yes Patient Identified (Ask Name/Date of ): Yes Does the patient have a fever greater than 101 degrees today? No Patient allergic to latex? No Has the patient ever fainted after receiving an injection? No VFC Stock: No Injection(s) verified: Yes, Injection Name: Prevnar Verified Side and Site: Yes Verified Shot(s) with Parent(s)/Patient: Yes documented in this encounter Miscellaneous Notes * Result Encounter Note - Sachin Buckner MD - 06/29/2023 1:24 PM EDT Pls f/u on dexa scan result documented in this encounter Plan of Treatment Upcoming Encounters Date Type Department Care Team (Late st Contact Info) Description 06/19/2024 9:40 AM EDT Office Visit Rheumatology [address] [place], [place] [address] Perla Orosco MD [address] [place] [address] [place] [address] 06/29/2024 9:00 AM EDT Laboratory Laboratory, [facility] [address] [place] [phone] [place] [address] [place] [address] 08/24/2024 9:00 AM EST Laboratory Laboratory, [facility] [address] [place] [phone] [place] [address] [place] [address] 08/31/2024 11:45 AM EST Office Visit Hematology/Oncology [facility] [address] [facility] [place], [place] [phone] Jonah Felipe MD [address] [facility] [place] [address] 03/13/2025 7:15 AM EDT Imaging Radiology [address] [place] [address] 05/15/2025 7:40 AM EDT Office Visit Family Practice [facility] [address] [place] [address] Abelardo James MD [address] [place] [address] Scheduled Procedures Name Priority Associated Diagnoses Date/Ti [...] D LEVEL ONCE IN A LIFETIME-USE SMARTSET# [id number] Completed 06/09/2018 Zoster Vaccines Completed 04/14/2020, 11/03, [...] documented as of this encounter Medical Devices Not on filedocumented as of this encounter Procedures Procedure Name Priority Date/Time Associated Diagnosis Comments DEXA SCAN/BONE MINERAL AXIAL Routine 06/27/2023 9:46 AM EDT Menopause Screening for osteoporosis documented in this encounter Results * DEXA SCAN/BONE MINERAL AXIAL (06/27/2023 9:46 AM EDT) Anatomical Region Laterality Modality Dexa, Vertebra, Spine, Hip, Pelvis Nuclear Medicine Impressions 06/28/2023 7:37 AM EDT S: Fracture risk is based on current National Osteoporosis Foundation (www.nof.org) Clinicians Guide and [employer] Association of Clinical Endocrinology (AACE) Guidelines (www.aace.com) and the application of current WHO FRAX tool (https://www.gamaliel.ac.uk/FRAX/) as well as the 2017 [employer] College of Rheumatology Glucocorticoid Induced Osteoporosis (GIOP) Guidelines (rheumatology.org/Practice-Quality/Clinical-Support/Pmxegdjd-Wlhdrhgz-Jwwyb lines) using Bone mineral density derived T-scores and clinical risk factors obtained from the patient questionnaire. 1. The fracture risk is HIGH (remains HIGH) 2. The quality of the examination is GOOD. 3. No previous study for comparison. DEXA machine was recently upgraded so a comparison study can not be made The low Z-score reflects a low bone mineral density compared to age, and gender-matched controls. SUGGESTIONS: Information concerning the evaluation and treatment of osteoporosis can be found at the National Osteoporosis Foundation website (www.nof.org) and [employer] Association of Clinical Endocrinology (AACE-www.aace.com). Osteoporosis prevention and treatment begins by modifying risk factors (such as smoking cessation and avoiding alcohol excess) and by participating in weight-bearing activities and exercise. Issues related to fall prevention and home safety should be addressed. Current NOF guidelines suggest 1200 to 1500 mg of calcium from diet and or supplemental sources. It is generally felt best to get calcium from one s diet. Calcium carbonate and calcium citrate are common calcium supplement choices in most local pharmacies. If the patient is taking a proton pump inhibitor, then calcium citrate should be the preferred supplement, if that is necessary. NOF guidelines for vitamin D are 800 to 1000 units of vitamin D3 daily. However, this may best be guided by measurement of 25-OH vitamin-D level, aiming for a level between 30 to 50 units (ng/ml). Additional information can be found at the FRAX website (https://www.gamaliel.ac.uk/FRAX/), and the [employer] College of Rheumatology website (https://www.rheumatology.org/Practice-Quality/Clinical-Support/Clinical-Pr actice-Guidelines). 1. Treatment with a bisphosphonate (such as Fosamax/Alendronate, Actonel/Risedronate, or Boniva/Ibandronate) should be considered. If the patient is unable to use an oral bisphosphonate, another agent such as IV bisphosphonates (Boniva/Ibandronate or Reclast/Zoledronic Acid ), Prolia/Denosumab Forteo/Teriparatide, Tymlos/Abaloparatide, Evenity/Romosozumab, or a selective estrogen receptor modulator (Evista/Raloxifene) should be considered. Secondary causes of low bone density should be considered. A 25-OH Vitamin D, serum calcium, and creatinine should be obtained. Other studies can be considered which would include a PTH, IEP, TSH, or Testosterone (in men). (For users of [employer], there is an osteoporosis Smart Set #1146). If there are questions about how to best manage this high risk patient, consideration can be given to referral to [facility] ([facility]). To place a consult, type in [facility] under orders in [facility]. Alternatively, an "ASK-a-DOC" question can be sent to any Neon Sign Installer or Call Center Coordinator in the [employer] System - You can request a specific physician to answer your question or you can use the physician responsible for ASK-a-DOC that day. 2. Given the patient's Z-score (comparison with age matched controls) which is below 1.0, one should consider secondary causes of low bone mineral density. A 25-OH Vitamin D, serum calcium, and creatinine should be obtained. Other studies can be considered which would include a PTH, IEP, TSH, or Testosterone (in men). For [facility] Providers, use the OSTEOPOROSIS Smart Set [1146] 3. A repeat study should be considered in 2 years PERLA OROSCO M.D. ISCD Certified Clinical Planetarium Technician Department of Rheumatology [facility] Narrative 06/28/2023 7:37 AM EDT Radiology, [facility] DXA Performed: 06/27/23 DXA Resulted: 06/28/2023 Martha Vargas Reason for testing: estrogen deficient woman at clinical risk Osteoporosis treatment (per questionnaire): A. Previous treatment: Reclast/Zoledronic Acid [id number] B. Current treatment: NONE Major risk factors: none Using a [employer] images of the lumbar spine, left hip were obtained using DXA.. The bone mineral density and T scores [standard, young, normal, female population] are as follows: RESULTS: Lumbar spine: 0.685 gms/cm2 T-score: -3.3 Z-score: -1.1 Left femoral neck: 0.592 gms/cm2 T-score: -2.3 FRAX not indicated. Sachin Buckner MD RADIOLOGY (RA D GENERAL) * (ABNORMAL) LIPID PANEL (05/13/2017 7:32 AM EDT) HOURS FASTING 12 hours [facility] Triglycerides 55 <200 mg/dL [facility] Comment: TRIGLYCERIDE REFERENCE RANGES (mg/dL) <150 NORMAL 150-199 BORDERLINE HIGH 200-499 HIGH >499 VERY HIGH Cholesterol 216(H) <200 mg/dL [facility] Comment: TOTAL CHOLESTEROL REFERENCE RANGES(mg/dL) <200 DESIRABLE 200-239 BORDERLINE HIGH >239 HIGH HDL Cholesterol 88 >39 mg/dL [facility] Comment: HDL CHOLESTEROL REFERENCE RANGES(mg/dL) <40 LOW(UNDESIRABLE) >59 HIGH(DESIRABLE) Cholesterol-HDL Ratio 2.5 [facility] LDL Cholesterol 117 0 - 129 mg/dL [facility] Comment: LDL CHOLESTEROL REFERENCE RANGES(mg/dL) <100 OPTIMAL GOAL FOR HIGH RISK PATIENTS 100-129 NEAR OR ABOVE NORMAL 130-159 BORDERLINE HIGH 160-189 HIGH >189 VERY HIGH 05/13/2017 7:32 AM EDT 05/13/2017 7:33 AM EDT Sachin Buckner MD LAB BLOOD ORD ERABLES Performing Organization Address City/[facility] Co de Phone Number [facility] [address] [place] [address] [facility]LE[facility] ROOM [facility] Room [address] [place] [address] * TSH W/FT4 IF TSH IS INDICATED (05/13/2017 7:32 AM EDT) TSH 1.62 0.27 - 4.2 uIU/mL [facility] FREE T4 REFLEXIVE NOT APPLICABLE 0.9 - 1.7 ng/dL [facility] 05/13/2017 7:32 AM EDT 05/13/2017 7:33 AM EDT Sachin Buckner MD LAB BLOOD ORD ERABLES [facility] [address] [facility] [place] [address] * (ABNORMAL) CBC (05/13/2017 7:32 AM EDT) WBC 4.26 4.00 - 10.80 K/uL [facility] RBC 3.93 3.85 - 5.15 M/uL [facility] HGB 13.1 12.0 - 15.3 g/dL [facility] HCT 39.1 36.0 - 45.2 % [facility] MCV 99.5(H) 81.5 - 97.5 fL [facility] MCH 33.3 27.0 - 34.0 pg [facility] MCHC 33.5 32.0 - 36.0 g/dL [facility] RDW 13.0 11.5 - 15.5 % [facility] PLT 243 140 - 400 K/uL [facility] MPV 10.0 6.6 - 11.1 fL [facility] 05/13/2017 7:32 AM EDT 05/13/2017 7:33 AM EDT Sachin Buckner MD LAB BLOOD [employer] Organization Address City/State/ZIP Co de Phone Number [facility] [address] [place] [address] * COMPR METAB PANEL (05/13/2017 7:32 AM EDT) BUN 15 6 - 20 mg/dL [facility] CREATININE 0.8 0.5 - 1.0 mg/dL [facility] Comment: GFR should be used to assess renal function. Plasma/Serum creatinine may not be able to properly reflect renal function in some cases. SODIUM 141 135 - 146 mmol/L [facility] POTASSIUM 4.4 3.5 - 5.1 mmol/L [facility] CHLORIDE 103 98 - 107 mmol/L [facility] CO2 27 22 - 32 mmol/L [facility] ANION GAP 11 7 - 15 mmol/L [facility] GLUCOSE 96 70 - 120 mg/dL [facility] Albumin 4.0 3.8 - 5.0 g/dL [facility] AST 21 10 - 35 U/L [facility] Alkaline Phosphatase 65 0 - 153 U/L [facility] Bilirubin, Total 0.3 0 - 1.2 mg/dL [facility] CALCIUM 9.3 8.4 - 10.2 mg/dL [facility] Protein 6.7 6.0 - 8.3 g/dL [facility] ALT 19 10 - 35 U/L [facility] EGFR >60.0 >60 [facility] Comment:If patient is Margarita n Stateless, multiply estimated GFR by 1.159. 05/13/2017 7:32 AM EDT 05/13/2017 7:33 AM EDT Sachin Buckner MD LAB BLOOD ORD ERABLES [facility] [address] [facility] [place] [address] documented in this encounter Visit Diagnoses Diagnosis CREST syndrome (HCC)- Primary Systemic sclerosis Anxiety state Anxiety state, unspecified Physical exam, annual Routine general medical examination at a health care facility Menopause Asymptomatic postmenopausal status (age-related) (natural) Screening for osteoporosis Special screening for osteoporosis Not vaccinated against Streptococcus pneumoniae Need for prophylactic vaccination against streptococcus pneumoniae (pneumococcus) Screening mammogram for breast cancer documented in this encounter Care Teams Genetic Technologist Relationship Specialty Start Date End Date Sachin Buckner MD PCP - General Family Medicine 02/25/17 01/25/18 documented as of this encounter
--- OUTSIDE RECORDS SUMMARY | 2024-07-01 19:00 | External Medical Summary | Summary of Care ---
Author Name Unknown Organization [facility] Address [address] [facility] [place] [place] [address] Phone [phone] Care Team Providers Care Bed And Breakfast Cook Name Role Phone Andressa James MD Primary Care Provider [phone] Reason for Visit * Reason Onset Date Comments Medication Refill 06/01/2024 Encounter Details Date Type Department Care Team (Late st Contact Info) Description 06/01/2024 Refill Family Practice [facility] [address] [facility] [place] [address] Andressa James MD 132 [facility] [place] [address] Acute bronchitis, antibiotics not indicated Allergies Active Allergy Reactions Criticality Noted Date [...] 3 04/25/2023 Active Colchicine 0.6 MG Oral TabletIndications:C alcinosis cutis, Raynaud's syndrome, sclerodactyly and telangiectasia (CRST) syndrome (HCC) take 1 tablet by mouth daily 90 Tablet 1 07/18/2023 Active NIFEdipine ER Osmotic Release 30 MG [...] Tablets before bedtime. 540 Tablet 05/14/2024 Active Albuterol Sulfate HFA 108 (90 Base) MCG/ACT Inhalation Aerosol SolutionIndications :Acute bronchitis, antibiotics not indicated Inhale 2 Puffs by mouth every 6 hours as needed for Wheezing. 54 g 1 06/01/2024 Active Albuterol Sulfate HFA 108 (90 Base) MCG/ACT Inhalation Aerosol SolutionIndications :Acute bronchitis, antibiotics not indicated Inhale 2 Puffs by mouth every 6 hours as needed for Wheezing. 18 g 2 07/21/2023 4 Discontinue d(Refill) documented as of this [...] Notes * Telephone Encounter - Roxann Barnes [facility] - 06/01/2024 10:07 AM EDTSigned Prescriptions: Disp Refills Albuterol Sulfate HFA 108 (90 Base) MCG/AC*54 g 1 Sig: Inhale 2 Puffs by mouth every 6 hours as needed for Wheezing.Authorizing Provider: ANDRESSA JAMES User: ROXANN BOONE documented in this encounter Plan of Treatment Upcoming Encounters Date Type Department Care Team (Late st Contact Info) Description 06/07/2024 9:30 AM EDT Office Visit Pulmonary Medicine, [place] [address] [place] [address] Bruce Villegas MD [address], [place] [id number] 06/19/2024 9:40 AM EDT Office Visit Rheumatology [place] [address]60 [facility] [place] [address] Mihir Gomes MD [address] [place] [address] [place] [address] 06/29/2024 9:00 AM EDT Laboratory Laboratory, [facility] [place] [phone] [facility] 132 [facility] [place] [address] 08/24/2024 9:00 AM EST Laboratory Laboratory, [facility] 132 [facility] [place] [phone] [facility] [place] [address] 08/31/2024 11:45 AM EST Office Visit Hematology/Oncology [facility] 200 [facility] [place] [phone] Jonah Felipe MD 200 [facility] [place] [address] 03/13/2025 7:15 AM EDT Imaging Radiology [facility] 132 [facility] [place] [address] 05/15/2025 7:40 AM EDT Office Visit Family Practice [facility] 132 [facility] [place] [address] Andressa James MD [address] [place] [address] Scheduled Procedures Name Priority Associated Diagnoses Date/Ti [...] D LEVEL ONCE IN A LIFETIME-USE SMARTSET# [id number] Completed 06/09/2018 Zoster Vaccines Completed 04/14/2020, 11/03, [...] this encounter Medical Devices Implanted Type Area [employer] Police Officer Device Identifier Shelf Expiration Date Model / Serial / Lot Lens Intraoc 20.0 - [id number] - [id number] Implanted:Qty: 1 on 12/05/2018 by Rick Cantu MD at OR [facility] Left: Eye [employer] 06/02/2023 [id number] / [id number] / [id number] Lens Intraoc 16.0 - [id number] - [id number] Implanted:Qty: 1 on 12/12/2018 by Rick Cantu MD at OR [facility] Right: Eye [employer]CH [employer] LOMB 04/01/2023 [id number] / [id number] / [id number] documented as of this encounter Visit Diagnoses Diagnosis Acute bronchitis, antibiotics not indicated Acute bronchitis Screening mammogram for breast cancer documented in this encounter Care Teams Bed And Breakfast Cook Relationship Specialty Start Date End Date Andressa James MD [address] [place] [address] PCP - General Family Medicine 11/09/18 documented as of this encounter
--- OUTSIDE RECORDS SUMMARY | 2024-07-01 19:00 | External Medical Summary | Summary of Care ---
Author Name Unknown Organization [facility] Address [address] [place] [address] Phone [phone] Care Team Providers Care Molecular Modeler Name Role Phone Abelardo James MD Primary Care Provider [phone] [phone] Reason for Visit * Reason Comments Physical-Exam Pt here for cpe, den ies any concerns Encounter Details Date Type Department Care Team (Late st Contact Info) Description 05/14/2024 9:00 AM EDT Office Visit [facility] [address] [facility] [place] [address] Abelardo James MD 132 [facility] [place] [address] 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)*; Dyslipidemia; ILD (interstitial lung disease) (HCC); CREST syndrome (HCC); Sigmoid diverticulosis; Mild chronic gastritis; Age-related osteoporosis without current pathological fracture; Essential tremor; Benign paroxysmal vertigo of left ear; MAYANK (generalized anxiety disorder) Allergies Active Allergy Reactions Criticality Noted Date Comments Nitrofurantoin Cough 12/15/2023 Omeprazole 12/26/2007 Itchiness and rash documented as of this encounter (statuses as of 05/14/2024) Medications Medication Sig Dispensed Refills Start Date End Date Status Vitamin D3 50 MCG (1999 UT) Oral [...] and 3 Tablets before bedtime. 540 Tablet 02/20/2024 4 Discontinue d(Refill) documented as of this encounter (statuses as of 05/14/2024) Active Problems Problem Noted Date Diagnosed Date [...] as of this encounter (statuses as of 05/14/2024) Resolved Problems Problem Noted Date Diagnosed Date [...] as of this encounter (statuses as of 05/14/2024) Immunizations Name Administration Dates Next Due COVID-19 mRNA, LNP-s, No Pre serve, 2-Dose Series (OptMed) 12/10/2020,11/19/2020 Pneumococcal Conjugate Vacc, 13 Valent (Prevnar) [...] No 03/27/2024 Does the household have a [facility] source of income? (Household - for ages [...] Sign Reading Time Taken Comments Blood Pressure 108/76 05/14/2024 9:03 AM EDT Pulse 76 05/14/2024 9:03 AM EDT Temperature 36.3 C (97.4 F) 05/14/2024 9:03 AM ED T Respiratory Rate 18 05/14/2024 9:03 AM EDT Oxygen Saturation - - Inhaled Oxygen Concentration - - Weight 56.2 kg (124 lb) 05/14/2024 9:03 AM EDT Height 165.7 cm (5' 5.25") 05/14/2024 9:03 AM ED T Body Mass Index 20.48 05/14/2024 9:03 AM EDT documented in this encounter Progress Notes * Abelardo James MD - 05/14/2024 10:33 AM EDT SUBJECTIVE: Martha Vargas is a 73 year old female. Chief Complaint Patient presents with Physical-Exam Pt here for cpe, denies any concerns HPI: Routine follow up. Has mild stable anemia due to Cellcept. Ended up seeing heme/onc about this. Labs have been stable. She remains more short of breath with activity due to her ILD. Overall she feelswell. Health maintenance up to date. Will recheck blood counts today. 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 Mycophenolate Mofetil 500 MG Oral Tablet (CellCept) Take 3 Tablets by mouth in the morning and 3 Tablets before bedtime. 540 Tablet 0 Primidone 50 MG Oral Tablet (Mysoline) TAKE ONE TABLET BY MOUTH TWO TIMES A DAY 200 Tablet 1 No current facility-administered medications for this visit. Allergy: Review of patient's allergies indicates: Allergen Reactions Nitrofurantoin Cough Omeprazole Itchiness and rash OBJECTIVE: BP 108/76 | Pulse 76 | Temp 36.3 C (97.4 F) (Tympanic) | Resp 18 | Ht 1.657 m (5' 5.25") | Wt 56.2 kg (124 lb) | BMI 20.48 kg/m | BSA 1.61 m General: alert, healthy, and no distress Head: Normocephalic, No masses, lesions, tenderness or abnormalities Neck: supple, no adenopathy, no bruits, thyroid normal size, non-tender, without nodularity Lungs: chest symmetric with normal AP diameter, no chest deformities noted, no chest wall tenderness, lungs clear to auscultation Heart: regular rate & rhythm, no murmur, and no gallops Extremities: less than 2 second capillary refill, no joint deformities, effusion, or inflammation Neuro Exam: alert & oriented x 3 with fluent speech, no focal motor/sensory deficits, gait normal, reflexes normal and symmetric Skin: skin color, texture, turgor are normal, no rashes or significant lesions ASSESSMENT AND PLAN: (D46.4, T50.905A) 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) (primary encounter diagnosis) Plan: sees heme/onc; normal iron (E78.5) Dyslipidemia Plan: not in statin benefit group (J84.9) ILD (interstitial lung disease) (HCC) Plan: on cellcept (M34.1) CREST syndrome (HCC) Plan: FERRITIN, IRON SCREEN, INCLUDING TIBC, CBC (K57.30) Sigmoid diverticulosis Plan: quiescent (K29.50) Mild chronic gastritis Plan: stable (M81.0) Age-related osteoporosis without current pathological fracture Plan: stable (G25.0) Essential tremor Plan: stable (H81.12) Benign paroxysmal vertigo of left ear Plan: quiescent (F41.1) MAYANK (generalized anxiety disorder) Plan: stable Follow up in 6 month(s). No other complaints were offered at this time. Abelardo James MD documented in this encounter Nursing Notes * Alie Hill LPN - 05/14/2024 9:02 AM EDT The patient has been properly identified by confirmation of name and date of . Chief Complaint Patient presents with Physical-Exam Pt here for cpe, denies any concerns documented in this encounter Plan of Treatment Upcoming Encounters Date Type Department Care Team (Late st Contact Info) Description 05/15/2024 2:30 PM EDT PulmDiagnostic Pulmonary Function Lab, [address] [address], Pft Room [address] [place] [address] 05/31/2024 2:45 PM EDT Office Visit Hematology/Oncology [facility] 200 [facility] [place] [phone] Jonah Felipe MD 200 [facility] [place] [address] 06/07/2024 9:30 AM EDT Office Visit Pulmonary Medicine, [address] [address] Bruce Villegas MD [address] [place] [address] 06/19/2024 9:40 AM EDT Office Visit Rheumatology [address] [place] [address] Mihir Gomes MD [facility] [place], [place] [address] 03/13/2025 7:15 AM EDT Imaging Radiology [address] 132 [facility] [place] [address] 05/15/2025 7:40 AM EDT Office Visit Family Practice [facility] 132 [facility] [place] [address] Abelardo James MD 132 [facility] [place] [address] Pending Results Name Type Priority Associated Diagnoses Date /Time FERRITIN Lab Routine CREST syndrome (HCC) 05/14/2024 9:27 AM EDT IRON SCREEN, INCLUDING TIBC Lab Routine CREST syndrome (HCC) 05/14/2024 9:27 AM EDT Scheduled Orders Name Type Priority Associated Diagnoses Orde r Schedule FERRITIN Lab Routine CREST syndrome (HCC) Expected: 05/14/2024 (Approximate), Expires: 05/14/2025 IRON SCREEN, INCLUDING TIBC Lab Routine CREST syndrome (HCC) Expected: 05/14/2024 (Approximate), Expires: 05/14/2025 Scheduled Procedures Name Priority Associated Diagnoses Date/Ti [...] D LEVEL ONCE IN A LIFETIME-USE SMARTSET# [id number] Completed 06/09/2018 Zoster Vaccines Completed 04/14/2020, 11/03, [...] this encounter Medical Devices Implanted Type Area Tomato Paste Maker Device Identifier Shelf Expiration Date Model / Serial / Lot Lens Intraoc 20.0 - [id number] - [id number] Implanted:Qty: 1 on 12/05/2018 by Rick Cantu MD at OR [facility] Left: Eye [employer]OMB 06/02/2023 [id number] / [id number] / [id number] Lens Intraoc 16.0 - [id number] - [id number] Implanted:Qty: 1 on 12/12/2018 by Rick Cantu MD at OR [facility] Right: Eye BAUSCH [employer] LOMB 04/01/2023 [id number] / [id number] / [id number] documented as of this encounter Results * (ABNORMAL) CBC (05/14/2024 9:27 AM EDT) [facility] WBC 6.01 4.00 - 10.80 K/uL 05/14/2024 9:34 AM EDT LABORATORY [facility] 57-10 RBC 3.57 3.85 - 5.15 M/uL 05/14/2024 9:34 AM EDT LABORATORY [facility] 57-10 HGB 11.2(L) 12.0 - 15.3 g/dL 05/14/2024 9:34 AM EDT LABORATORY [facility] 57-10 HCT 34.6(L) 36.0 - 45.2 % 05/14/2024 9:34 AM EDT LABORATORY [facility] 57-10 MCV 96.9 81.5 - 97.5 fL 05/14/2024 9:34 AM EDT LABORATORY [facility] 57-10 MCH 31.4 27.0 - 34.0 pg 05/14/2024 9:34 AM EDT LABORATORY [facility] 57-10 MCHC 32.4 32.0 - 36.0 g/dL 05/14/2024 9:34 AM EDT LABORATORY [facility] 57-10 RDW 14.0 11.5 - 15.5 % 05/14/2024 9:34 AM EDT [facility] [place] 57-10 PLT 315 140 - 400 K/uL 05/14/2024 9:34 AM EDT [facility] [place] 57-10 MPV 9.3 6.6 - 11.1 fL 05/14/2024 9:34 AM EDT [facility] [place] 57-10 Blood Venous blood specimen / Unknown Venipuncture / Unknown 05/14/2024 9:27 AM EDT 05/14/2024 9:27 AM EDT Abelardo James MD LAB BLOOD ORDERAB LES [facility] [place] 57-10 [address] [place] [address] documented in this encounter Visit Diagnoses Diagnosis 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 Dyslipidemia Other and unspecified hyperlipidemia ILD (interstitial lung disease) (HCC) Postinflammatory pulmonary fibrosis CREST syndrome (HCC) Systemic sclerosis Sigmoid diverticulosis Diverticulosis of colon (without mention of hemorrhage) Mild chronic gastritis Age-related osteoporosis without current pathological fracture Senile osteoporosis Essential tremor Essential and other specified forms of tremor Benign paroxysmal vertigo of left ear Benign paroxysmal positional vertigo MAYANK (generalized anxiety disorder) Generalized anxiety disorder Screening mammogram for breast cancer documented in this encounter Care Teams Molecular Modeler Relationship Specialty Start Date End Date Abelardo James MD 132 [place] [address] PCP - General Family Medicine 11/09/18 documented as of this encounter
--- OUTSIDE RECORDS SUMMARY | 2024-07-01 19:01 | External Medical Summary | Summary of Care ---
Author Name Unknown Organization [facility] Address [address] [facility] [place] [address] Phone [phone] Care Team Providers Care Mailing Machine Assistant Name Role Phone Abelardo James MD Primary Care Provider [phone] [phone] Reason for Visit * Reason Comments Outpatient Testing Encounter Details Date Type Department Care Team (Late st Contact Info) Description 04/20/2024 12:30 PM EDT Laboratory Laboratory [facility] [address] [place] [phone] [place], [address] [place] [address] Arrived Allergies Active Allergy Reactions Criticality Noted Date Comments Nitrofurantoin Cough 12/15/2023 Omeprazole 12/26/2007 Itchiness and rash documented as of this encounter (statuses as of 04/20/2024) Medications Medication Sig Dispensed Refills Start Date [...] Nails Oral Tablet Take by mouth. Active Mycophenolate Mofetil 500 MG Oral Tablet (CellCept) Take 3 Tablets by mouth in the morning and 3 Tablets before bedtime. 540 Tablet 02/20/2024 05/20/2024 Active Primidone 50 MG Oral Tablet (Mysoline) TAKE ONE TABLET BY MOUTH TWO TIMES A DAY 200 Tablet 1 04/10/2024 04/10/2025 Active documented as of this encounter (statuses as of 04/20/2024) Active Problems Problem Noted Date Diagnosed Date Sigmoid diverticulosis 03/28/2024 ILD (interstitial lung disease) 08/22/2023 Benign paroxysmal vertigo of left ear 11/23/2022 Dyslipidemia 05/12/2020 Age-related osteoporosis wit hout current pathological fracture 07/18/2019 Overview: More specific. Mild chronic gastritis 05/11/2018 MAYANK (generalized anxiety disorder) 01/26/2018 CREST syndrome 10/21/2011 Essential tremor 12/07/2002 documented as of this encounter (statuses as of 04/20/2024) Resolved Problems Problem Noted Date Diagnosed Date [...] as of this encounter (statuses as of 04/20/2024) Immunizations Name Administration Dates Next Due COVID-19 mRNA, LNP-s, No Pre serve, 2-Dose Series (Phase III Development) 12/10/2020,11/19/2020 Pneumococcal Conjugate Vacc, 13 Valent (Prevnar) [...] 05/14/2024 9:00 AM EDT Office Visit Family Practice [facility] [address] [place] [address] Abelardo James MD [address] [place] [address] 05/31/2024 2:45 PM EDT Office Visit Hematology/Oncology [facility] 200 [facility] [place] [phone] Jonah Felipe MD 200 [facility] [place] [address] 06/07/2024 9:30 AM EDT Office Visit Pulmonary Medicine, [place] [address] [place] [address] Bruce Villegas MD [address] [place] [address] 06/19/2024 9:40 AM EDT Office Visit Rheumatology [place] [address] [facility] [place] [address] Mihir Gomes MD [facility] [email or web address] [facility] [place] [address] 03/13/2025 7:15 AM EDT Imaging Radiology [address] [place] [address] Scheduled Procedures Name Priority Associated Diagnoses Date/Ti me COLONOSCOPY FLEXIBLE PROXIMA L DIAGNOSTIC Recall Family history of colon cancer Health Maintenance Due Date Last Done Comments Cologuard 1996 Fecal Occult Blood Test 1996 Sigmoidoscopy 1996 Depression Screening 11/12/2020 11/12/2019 COVID-19 Vaccine (3 [...] D LEVEL ONCE IN A LIFETIME-USE SMARTSET# [id number] Completed 06/09/2018 Zoster Vaccines Completed 04/14/2020, 11/03, [...] this encounter Medical Devices Implanted Type Area Partner Device Identifier Shelf Expiration Date Model / Serial / Lot Lens Intraoc 20.0 - [id number] - [id number] Implanted:Qty: 1 on 12/05/2018 by Rick Cantu MD at OR [facility] Left: Eye [employer] LOMB 06/02/2023 [id number] / [id number] / [id number] Lens Intraoc 16.0 - [id number] - [id number] Implanted:Qty: 1 on 12/12/2018 by Rick Cantu MD at OR [facility] Right: Eye BAUSCH [employer] LOMB 04/01/2023 [id number] / [id number] / [id number] documented as of this encounter Care Teams Mailing Machine Assistant Relationship Specialty Start Date End Date Abelardo James MD [address] [place] [address] PCP - General Family Medicine 11/09/18 documented as of this encounter
--- OUTSIDE RECORDS SUMMARY | 2024-07-01 19:01 | External Medical Summary | Summary of Care ---
Author Name Unknown Organization [facility] Address [address] [place] [address] Phone [phone] Care Team Providers Care User Interface Artist Name Role Phone Abelardo James MD Primary Care Provider [phone] [phone] Reason for Visit * Reason Onset Date Comments Medication Refill 01/09/2024 Mycophenolate 500 MG Tablet Encounter Details Date Type Department Care Team (Late st Contact Info) Description 01/09/2024 Refill Pulmonary Medicine, [place] [address] [place], [place] [id number] Cammie Cadena CRNP [address] [place] [address] Allergies Active Allergy Reactions Criticality Noted Date Comments Nitrofurantoin Cough 12/15/2023 Omeprazole 12/26/2007 Itchiness and rash documented as of this encounter (statuses as of 05/09/2024) Medications Medication Sig Dispensed Refills Start Date [...] morning. Active LORazepam 0.5 MG Oral Tablet (Ativan)Indication s:Essential tremor,MAYANK (generalized anxiety disorder) Take 1 Tablet by mouth every 6 hours as needed for Anxiety. 30 Tablet 1 3 Active Meclizine HCl 25 MG Oral Tablet ChewableIndication s:Benign paroxysmal vertigo of left ear chew 1 Tablet by mouth 3 times a day as needed for Dizziness. 30 Tablet 1 3 Active Esomeprazole Magnesium 40 MG Oral Capsule Delayed Release TAKE ONE CAPSULE BY MOUTH EVERY DAY BEFORE BREAKFAST 100 Capsule 3 3 Active Colchicine 0.6 MG Oral TabletIndications: Calcinosis cutis, Raynaud's syndrome, sclerodactyly and telangiectasia (CRST) syndrome (HCC) take 1 tablet by mouth daily 90 Tablet 1 3 Active Albuterol Sulfate HFA 108 (90 Base) MCG/ACT Inhalation Aerosol SolutionIndication s:Acute bronchitis, antibiotics not indicated Inhale 2 Puffs by mouth every 6 hours as needed for Wheezing. 18 g 2 3 Active NIFEdipine ER Osmotic Release 30 MG Oral Tablet Extended Release 24 Hour (Procardia XL)Indications:CRE ST syndrome (HCC) TAKE ONE TABLET BY MOUTH EVERY DAY IN THE MORNING 100 Tablet 3 3 Active Hair Skin & Nails Oral Tablet Take by mouth. Active Primidone 50 MG Oral Tablet (Mysoline) TAKE ONE TABLET BY MOUTH TWO TIMES A DAY 200 Tablet 1 3 04/09/20 24 Discontinued(Ref ill) Elderberry Immune Complex Oral Tablet Chewable Take by mouth daily. 03/28/20 24 Discontinued Mycophenolate Mofetil 500 MG Oral Tablet (CellCept) Take 1 Tablet by mouth in the morning and 1 Tablet before bedtime. 60 Tablet 3 4 01/18/20 24 Discontinued(Ref ill) documented as of this encounter (statuses as of 05/09/2024) Active Problems Problem Noted Date Diagnosed Date Sigmoid diverticulosis 03/28/2024 ILD (interstitial lung disease) 08/22/2023 Benign paroxysmal vertigo of left ear 11/23/2022 Dyslipidemia 05/12/2020 Age-related osteoporosis wit hout current pathological fracture 07/18/2019 Overview: More specific. Mild chronic gastritis 05/11/2018 MAYANK (generalized anxiety disorder) 01/26/2018 CREST syndrome 10/21/2011 Essential tremor 12/07/2002 documented as of this encounter (statuses as of 05/09/2024) Resolved Problems Problem Noted Date Diagnosed Date [...] as of this encounter (statuses as of 05/09/2024) Immunizations Name Administration Dates Next Due COVID-19 mRNA, LNP-s, No Pre serve, 2-Dose Series (NX Pharmagen) 12/10/2020,11/19/2020 Pneumococcal Conjugate Vacc, 13 Valent (Prevnar) [...] encounter Miscellaneous Notes * Telephone Encounter - Kelle Tuttle LPN - 02/20/2024 2:40 PM EDTRefused Prescriptions: Disp Refills Mycophenolate Mofetil 500 MG Oral Tablet (*60 Tab*3 Sig: Take 1 Tablet by mouth in the morning and 1 Tablet before bedtime. Refused By: CAMMIE CADENA Reason for Refusal: Dose needs clarification * Telephone Encounter - Cammie Cadena CRNP - 01/10/2024 3:42 PM EDT Refused Prescriptions: Disp Refills Mycophenolate Mofetil 500 MG Oral Tablet (*60 Tab*3 Sig: Take 1 Tablet by mouth in the morning and 1 Tablet before bedtime. Refused By: CAMMIE CADENA Reason for Refusal: Dose needs clarification * Telephone Encounter - Cammie Cadena CRNP - 01/09/2024 2:17 PM EDT Pending Prescriptions: Disp Refills Mycophenolate Mofetil 500 MG Oral Tablet (*60 Tab*3 Sig: Take 1 Tablet by mouth in the morning and 1 Tablet before bedtime. * Telephone Encounter - Kelle Tuttle LPN - 01/09/2024 8:48 AM EDT Patient is requesting a 90 day supply Pending Prescriptions: Disp Refills Mycophenolate Mofetil 500 MG Oral Tablet *60 Tab*3 Sig: Take 1 Tablet by mouth in the morning and 1 Tablet before bedtime. Most Recent Office Visit Date:12/15/2023 (in office), 12/05/2023 (telemedicine) Next Scheduled Office Visit Date:Visit date not found If no future appointments scheduled, and last appointment is greater than a year ago, please schedule patient for a follow-up appointment Last date the medication was ordered: 12/15/2023 Pharmacy: [id number] [address] [facility] Please review and sign at your discretion. documented in this encounter Plan of Treatment Upcoming Encounters Date Type Department Care Team ([facility] st Contact Info) Description 05/14/2024 9:00 AM EDT Office Visit Family Practice [facility] [address] [place] [address] Abelardo James MD [address] [place] [address] 05/31/2024 2:45 PM EDT Office Visit Hematology/Oncology [facility] 200 [facility] [place], [place] [address] Jonah Felipe MD 200 [facility] [place] [address] 06/07/2024 9:30 AM EDT Office Visit Pulmonary Medicine, [place] [address] [place] [address] Bruce Villegas MD [address] [place] [address] 06/19/2024 9:40 AM EDT Office Visit Rheumatology [facility] [address] [place] [address] [place] [address] Mihir Gomes MD [address] [employer] [place] [address] 03/13/2025 7:15 AM EDT Imaging Radiology [address] 132 [facility] [place] [address] Scheduled Procedures Name Priority Associated Diagnoses Date/Ti [...] D LEVEL ONCE IN A LIFETIME-USE SMARTSET# [id number] Completed 06/09/2018 Zoster Vaccines Completed 04/14/2020, 11/03, [...] this encounter Medical Devices Implanted Type Area Director Supply Chain Device Identifier Shelf Expiration Date Model / Serial / Lot Lens Intraoc 20.0 - [id number] - [id number] Implanted:Qty: 1 on 12/05/2018 by Rick Cantu MD at OR [facility] Left: Eye BAUSCH & LOMB 06/02/2023 [id number] / [id number] / [id number] Lens Intraoc 16.0 - [id number] - [id number] Implanted:Qty: 1 on 12/12/2018 by Rick Cantu MD at OR [facility] Right: Eye BAUSCH & LOMB 04/01/2023 [id number] / [id number] / [id number] documented as of this encounter Care Teams User Interface Artist Relationship Specialty Start Date End Date Abelardo James MD [address] [place] [address] PCP - General Family Medicine 11/09/18 documented as of this encounter
--- OUTSIDE RECORDS SUMMARY | 2024-07-01 19:01 | External Medical Summary | Summary of Care ---
Author Name Unknown Organization [facility] Address [address] [facility] [place] [address] Phone [phone] Care Team Providers Care Abrasive Grader Helper Name Role Phone Abelardo James MD Primary Care Provider [phone] [phone] Reason for Visit * Reason Comments Outpatient Testing Encounter Details Date Type Department Care Team (Late st Contact Info) Description 05/14/2024 9:50 AM EDT Laboratory Laboratory, [facility] 132 [facility] [place] [phone] [facility] 132 [place] [address] CREST syndrome (HCC) Allergies Active Allergy Reactions Criticality Noted Date [...] 2:30 PM EDT PulmDiagnostic Pulmonary Function Lab, [address] [address], Pft Room [address] [place] [address] 05/31/2024 2:45 PM EDT Office Visit Hematology/Oncology [facility] 200 [facility] [place] [address] Jonah Felipe MD 200 [facility] [place] [address] 06/07/2024 9:30 AM EDT Office Visit Pulmonary Medicine, [address] [address] Bruce Villegas MD [address] [place] [address] 06/19/2024 9:40 AM EDT Office Visit Rheumatology [place] [id number] [facility] [place] [address] Mihir Gomes MD [address] [facility] [place] [address] 03/13/2025 7:15 AM EDT Imaging Radiology [address] 132 [facility] [place] [address] 05/15/2025 7:40 AM EDT Office Visit Family Practice [facility] [address] [place] [address] Abelardo James MD [address] [place] [address] Pending Results Name Type Priority Associated Diagnoses Date /Time FERRITIN Lab Routine CREST syndrome (HCC) 05/14/2024 9:27 AM EDT IRON SCREEN, INCLUDING TIBC Lab Routine CREST syndrome (HCC) 05/14/2024 9:27 AM EDT Scheduled Procedures Name Priority Associated [...] D LEVEL ONCE IN A LIFETIME-USE SMARTSET# [id number] Completed 06/09/2018 Zoster Vaccines Completed 04/14/2020, 11/03, [...] this encounter Medical Devices Implanted Type Area Case Loader Operator Device Identifier Shelf Expiration Date Model / Serial / Lot Lens Intraoc 20.0 - [id number] - [id number] Implanted:Qty: 1 on 12/05/2018 by Rick Cantu MD at OR [facility] Left: Eye BAUSCH & LOMB 06/02/2023 [id number] / [id number] / [id number] Lens Intraoc 16.0 - [id number] - [id number] Implanted:Qty: 1 on 12/12/2018 by Rick Cantu MD at OR [facility] Right: Eye BAUSCH & LOMB 04/01/2023 [id number] / [id number] / [id number] documented as of this encounter Procedures Procedure Name Priority Date/Time Associated Diagnosis Comments CBC Routine 05/14/2024 9:27 AM EDT CREST syndrome (HCC) documented in this encounter Results * (ABNORMAL) CBC (05/14/2024 9:27 AM EDT) WBC 6.01 4.00 - 10.80 K/uL 05/14/2024 9:34 AM EDT [facility] [place] 57-10 RBC 3.57 3.85 - 5.15 M/uL 05/14/2024 9:34 AM EDT [facility] [place] 57-10 HGB 11.2(L) 12.0 - 15.3 g/dL 05/14/2024 9:34 AM EDT [facility] [place] 57-10 HCT 34.6(L) 36.0 - 45.2 % 05/14/2024 9:34 AM EDT [facility] [place] 57-10 MCV 96.9 81.5 - 97.5 fL 05/14/2024 9:34 AM EDT [facility] [place] 57-10 MCH 31.4 27.0 - 34.0 pg 05/14/2024 9:34 AM EDT [facility] [place] 57-10 MCHC 32.4 32.0 - 36.0 g/dL 05/14/2024 9:34 AM EDT [facility] [place] 57-10 RDW 14.0 11.5 - 15.5 % [...] James MD LAB BLOOD ORDERAB LES LABORATORY [facility] [place] 57-10 [address] [place] [address] documented in this encounter Visit Diagnoses Diagnosis CREST syndrome (HCC) Systemic sclerosis Screening mammogram for breast cancer documented in this encounter Care Teams Abrasive Grader Helper Relationship Specialty Start Date End Date Abelardo James MD [address] [place] [address] PCP - General Family Medicine 11/09/18 documented as of this encounter
--- OUTSIDE RECORDS SUMMARY | 2024-07-01 19:01 | External Medical Summary | Summary of Care ---
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) Hematology/Oncology [facility] [address] [place] [address] Ave Barraza CRNP [address] [place] [address] Referral (SP 10-Day) Allergies Active Allergy Reactions Criticality Noted Date Comments Nitrofurantoin Cough 12/15/2023 Omeprazole 12/26/2007 Itchiness and rash documented as of this encounter (statuses as of 04/11/2024) Medications Medication Sig Dispensed Refills Start Date [...] as of this encounter (statuses as of 04/11/2024) Active Problems Problem Noted Date Diagnosed Date Sigmoid diverticulosis 03/28/2024 ILD (interstitial lung disease) 08/22/2023 Benign paroxysmal vertigo of left ear 11/23/2022 Dyslipidemia 05/12/2020 Age-related osteoporosis wit hout current pathological fracture 07/18/2019 Overview: More specific. Mild chronic gastritis 05/11/2018 MAYANK (generalized anxiety disorder) 01/26/2018 CREST syndrome 10/21/2011 Essential tremor 12/07/2002 documented as of this encounter (statuses as of 04/11/2024) Resolved Problems Problem Noted Date Diagnosed Date [...] as of this encounter (statuses as of 04/11/2024) Immunizations Name Administration Dates Next Due COVID-19 mRNA, LNP-s, No Pre serve, 2-Dose Series (C-Note) 12/10/2020,11/19/2020 Pneumococcal Conjugate Vacc, 13 Valent (Prevnar) [...] on file documented as of this encounter Progress Notes * Ave Barraza CRNP - 04/11/2024 4:26 PM EDT Hematology New Referral Triage Note 73 y/o female referred for anemia. Patient with PMH of CREST and ILD. Was started on Cellcept in December by Pulmonary. Since that time has developed a mild anemia, Hgb 10-11 range. Anemia work up unremarkable. No changes in other cell lines. Likely related to Cellcept as drug is known to cause bone marrow suppression. Does patient need to be seen?: Yes Modality: Office visit Urgency: Within 10 days (routine) Can the patient be seen by an advanced practitioner? No Are additional labs or studies needed prior to initial visit? No Is an infusion appointment needed after initial visit? No Discussed care plan with patient or proxy?: No Nurse to call. BELGICA Wayne * Wendy Fisher LPN - 04/10/2024 7:53 AM EDT Images from the original note were not included. 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 James Confirmation of diagnosis: Yes TRIAGE PLAN: Baseline/staging imaging complete: No Labs available: Yes Referral to other specialty recommended (ie. Surgery, outpatient infusion): No Additional triage comments: Please see Patient Message from 04/10/2024 Dr. Blanchard. Last office visit with PCP, 03/28/2024: HPI: Mild anemia. Likely from CellCept but pulm wanted us to work it up. No signs of bleeding. Colonoscopy reviewed. Will recheck labs. documented in this encounter Plan of Treatment Upcoming Encounters Date Type Department Care Team (Late st Contact Info) Description 05/14/2024 9:00 AM EDT Office Visit Family Practice [facility] [place] [address] Abelardo James MD 132 [facility] [address] 06/07/2024 9:30 AM EDT Office Visit Pulmonary Medicine, [place] [address] [place] [address] Bruce Villegas MD [address] [place] [address] 06/19/2024 9:40 AM EDT Office Visit Rheumatology [address] [place] [address] Mihir Gomes MD [address] [place] [address] [place] [address] 03/13/2025 7:15 AM EDT Imaging Radiology [facility] [facility] 132 [place] [address] Scheduled Procedures Name Priority Associated Diagnoses Date/Ti [...] D LEVEL ONCE IN A LIFETIME-USE SMARTSET# [id number] Completed 06/09/2018 Zoster Vaccines Completed 04/14/2020, 11/03, [...] this encounter Medical Devices Implanted Type Area Innersole Maker Device Identifier Shelf Expiration Date Model / Serial / Lot Lens Intraoc 20.0 - [id number] - [id number] Implanted:Qty: 1 on 12/05/2018 by Rick Cantu MD at [facility] Left: Eye BAUSCH & LOMB 06/02/2023 [id number] / [id number] / [id number] Lens Intraoc 16.0 - [id number] - [id number] Implanted:Qty: 1 on 12/12/2018 by Rick Cantu MD at OR [facility] Right: Eye BAUSCH & LOMB 04/01/2023 [id number] / [id number] / [id number] documented as of this encounter Care Teams Big Data Software Engineer Relationship Specialty Start Date End Date Abelardo James MD [address] [place] [address] PCP - General Family Medicine 11/09/18 documented as of this encounter
--- OUTSIDE RECORDS SUMMARY | 2024-07-01 19:01 | External Medical Summary ---
Author Name Unknown Address Unknown Organization K01:LAB[facility]ATORY C - [address] [place] [address] Laboratory Report Ordering Provider Test Date Status HILARIA CRISOSTOMO 05/14/2024 09:27:41 Final Observation Date Value Abnormality Reference (Units ) Status Iron 05/14/2024 09:27:41 58 33-151 (ug /dL) Final Iron-binding capacity 05/14/2024 09:27:41 282 250-425 (ug/dL) Final Transferrin Sat % 05/14/2024 09:27:41 21 15 -55 (%) Final Performing Location [facility] - [address] [place] [address]
--- OUTSIDE RECORDS SUMMARY | 2024-07-01 19:01 | External Medical Summary | Summary of Care ---
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) [facility] [address] [place] [address] [address] Barraza CRNP [address] [place] [address] Referral (SP 10-Day) Allergies Active Allergy Reactions Criticality Noted Date Comments Nitrofurantoin Cough 12/15/2023 Omeprazole 12/26/2007 Itchiness and rash documented as of this encounter (statuses as of 04/12/2024) Medications Medication Sig Dispensed Refills Start Date [...] as of this encounter (statuses as of 04/12/2024) Active Problems Problem Noted Date Diagnosed Date Sigmoid diverticulosis 03/28/2024 ILD (interstitial lung disease) 08/22/2023 Benign paroxysmal vertigo of left ear 11/23/2022 Dyslipidemia 05/12/2020 Age-related osteoporosis wit hout current pathological fracture 07/18/2019 Overview: More specific. Mild chronic gastritis 05/11/2018 MAYANK (generalized anxiety disorder) 01/26/2018 CREST syndrome 10/21/2011 Essential tremor 12/07/2002 documented as of this encounter (statuses as of 04/12/2024) Resolved Problems Problem Noted Date Diagnosed Date [...] as of this encounter (statuses as of 04/12/2024) Immunizations Name Administration Dates Next Due COVID-19 mRNA, LNP-s, No Pre serve, 2-Dose Series (Vputi) 12/10/2020,11/19/2020 Pneumococcal Conjugate Vacc, 13 Valent (Prevnar) [...] as of this encounter Progress Notes * Wendy Fisher LPN - 04/12/2024 2:10 PM EDT Discussed care plan with patient or proxy?: Yes , Patient agreeable to scheduling appt, she denies any preference in providers, requesting first available. Communicated with patient on Date (mm/dd/yyyy): at Time ([facility]): 2:19 PM Additional imaging needed: No Additional imaging orders pended: No Further labs recommended and ordered: No Bone Marrow biopsy recommended:No [facility] clinic review recommended: No * Ave Barraza CRNP - 04/11/2024 4:26 [...] chemotherapeutic drug D64.81 Enter order ID here: [id number] Specialty specific documentation: Hematology/Oncology NEW PATIENT - [...] Team (Late st Contact Info) Description 04/20/2024 12:15 PM EDT Office [facility] 200 [facility] [place] [place] [address] Jonah Felipe MD 200 [facility] [place] [address] 05/14/2024 9:00 AM EDT Office Visit [facility] 132 [facility] [place] [address] Abelardo James MD 132 [facility] [place] [address] 06/07/2024 9:30 AM EDT Office Visit Pulmonary Medicine, [place] [address] [place] [address] Bruce Villegas MD [address] [place] [address] 06/19/2024 9:40 AM EDT Office Visit Rheumatology [facility] [address] [place] [address] Mihir Gomes MD [address] [place] [address] 03/13/2025 7:15 AM EDT Imaging Radiology [address] [place] [address] Scheduled Procedures Name Priority Associated Diagnoses Date/Ti [...] D LEVEL ONCE IN A LIFETIME-USE SMARTSET# [id number] Completed 06/09/2018 Zoster Vaccines Completed 04/14/2020, 11/03, [...] this encounter Medical Devices Implanted Type Area Senior Analyst Market Intelligence Device Identifier Shelf Expiration Date Model / Serial / Lot Lens Intraoc 20.0 - [id number] - [id number] Implanted:Qty: 1 on 12/05/2018 by Rick Cantu MD at OR [facility] Left: Eye BAUSCH [employer] LOMB 06/02/2023 [id number] / [id number] / [id number] Lens Intraoc 16.0 - [id number] - [id number] Implanted:Qty: 1 on 12/12/2018 by Rick Cantu MD at OR [facility] Right: Eye BAUSCH & LOMB 04/01/2023 [id number] / [id number] / [id number] documented as of this encounter Care Teams In House Counsel Relationship Specialty Start Date End Date Abelardo James MD 132 [facility] [place] [address] PCP - General Family Medicine 11/09/18 documented as of this encounter
--- OUTSIDE RECORDS SUMMARY | 2024-07-01 19:01 | External Medical Summary ---
Author Name Unknown Address Unknown Organization K0G[facility] - [address] [place] [address] Laboratory Report Ordering Provider Test Date Status SUSANNAH BILLS 04/19/2024 13:53:12 Final Observation Date Value Abnormality Reference (Units ) Status WBC, Total 04/19/2024 13:53:12 6.95 4.00-10.8 0 (K/uL) Final RBC 04/19/2024 13:53:12 3.45 3.85-5.15 (M/uL) Final Hemoglobin 04/19/2024 13:53:12 10.6 Below low normal 12 .0-15.3 (g/dL) Final HCT 04/19/2024 13:53:12 33.1 Below low normal 36. 0-45.2 (%) Final MCV 04/19/2024 13:53:12 95.9 81.5-97.5 (fL) Final MCH 04/19/2024 13:53:12 30.7 27.0-34.0 (pg) Final MCHC 04/19/2024 13:53:12 32.0 32.0-36.0 (g/dL) Final RDW 04/19/2024 13:53:12 14.0 11.5-15.5 (%) Final Platelets 04/19/2024 13:53:12 320 140-400 (K /uL) Final MPV 04/19/2024 13:53:12 9.4 6.6-11.1 ( fL) Final Performing Location LAB[facility]ATORY [place] 57-1 0 - [address] [place] [address]
--- OUTSIDE RECORDS SUMMARY | 2024-07-01 19:01 | External Medical Summary ---
Author Name Unknown Address Unknown Organization K0G[facility] - [address] [place] [address] Laboratory Report Ordering Provider Test Date Status HILARIA CRISOSTOMO 05/14/2024 09:27:41 Final Observation Date Value Abnormality Reference (Units ) Status WBC, Total 05/14/2024 09:27:41 6.01 4.00-10.8 0 (K/uL) Final RBC 05/14/2024 09:27:41 3.57 3.85-5.15 (M/uL) Final Hemoglobin 05/14/2024 09:27:41 11.2 Below low normal 12 .0-15.3 (g/dL) Final HCT 05/14/2024 09:27:41 34.6 Below low normal 36. 0-45.2 (%) Final MCV 05/14/2024 09:27:41 96.9 81.5-97.5 (fL) Final MCH 05/14/2024 09:27:41 31.4 27.0-34.0 (pg) Final MCHC 05/14/2024 09:27:41 32.4 32.0-36.0 (g/dL) Final RDW 05/14/2024 09:27:41 14.0 11.5-15.5 (%) Final Platelets 05/14/2024 09:27:41 315 140-400 (K /uL) Final MPV 05/14/2024 09:27:41 9.3 6.6-11.1 ( fL) Final Performing Location LABORATORY [place] 57-1 0 - [address] [place] [address]
--- OUTSIDE RECORDS SUMMARY | 2024-07-01 19:01 | External Medical Summary ---
Author Name Unknown Address Unknown Organization K01:LABORATORY C - [address] [place] [address] Laboratory Report Ordering Provider Test Date Status THI SAAVEDRA 04/20/2024 12:43:30 Final Observation Date Value Abnormality Reference (Units ) Status Iron 04/20/2024 12:43:30 80 33-151 (ug /dL) Final Iron-binding capacity 04/20/2024 12:43:30 292 250-425 (ug/dL) Final Transferrin Sat % 04/20/2024 12:43:30 27 15 -55 (%) Final Performing Location LABORATORY C - [address] [place] [address]
--- OUTSIDE RECORDS SUMMARY | 2024-07-01 19:01 | External Medical Summary ---
Author Name Unknown Address Unknown Organization : Laboratory Report Ordering Provider Test Date Status THI SAAVEDRA 04/20/2024 12:43:30 Final Observation Date Value Abnormality Reference (Units ) Status SOLUBLE TRANSFERRIN RECEPTOR 04/20/2024 12:43:30 1.06 0.76-1.76 (mg/L) Final Test performed by [facility]
[address],
[place] [address]

Experimental Physicist: Siria Santamaria MD,PHD,PREETI
Test Reported by [facility],
[facility],
[address] [place], [place]
Vladislav Putnam M.D., Ph.D., Director of Laboratories
, [place] [id number] Performing Location
--- OUTSIDE RECORDS SUMMARY | 2024-07-01 19:01 | External Medical Summary ---
Author Name Unknown Address Unknown Organization K01:LABORATORY C - [address] [place] [address] Laboratory Report Ordering Provider Test Date Status ANDRESSAHILARIA 05/14/2024 09:27:41 Final Observation Date Value Abnormality Reference (Units ) Status Ferritin 05/14/2024 09:27:41 38 13-150 (ng /mL) Final Postmenopausal women have hi gher ferritin levels than pre-menopausal women. The above reference interval is based on pre-menopausal women. Performing Location [facility] - [address] [place] [address]
--- OUTSIDE RECORDS SUMMARY | 2024-07-01 19:01 | External Medical Summary | Summary of Care ---
Author Name Unknown Organization [facility] Address [address] [facility] [place] [address] Phone [phone] Care Team Providers Care Php Mysql Developer Name Role Phone Abelardo James MD Primary Care Provider +1 [phone] Reason for Visit * Reason Comments Consultation Consultation - Anemi a * Evaluate & Treat - Unlimited Visits (Within 10 days (routine)) - Authorized Specialty Diagnoses / Procedures Referred By Contbob t Referred To Contact Hematology/Oncology / Hematology Oncology Diagnoses Anemia following use of chemotherapeutic drug Abelardo James MD [address] [place] [address] Referral ID Status Reason Start Date Expiration Date Visits Requested Visits Authorized [id number] Authorized Specialty Services Required 04/09/2024 [id number] Encounter Details Date Type Department Care Team (Late st Contact Info) Description 04/20/2024 12:15 PM EDT Office Visit Hematology/Oncology [facility] [place] [address] [phone] Jonah Felipe MD [address] [place] [address] Normocytic anemia*; CREST syndrome (HCC) Allergies Active Allergy Reactions [...] mRNA, LNP-s, No Pre serve, 2-Dose Series (Creator Up) 12/10/2020,11/19/2020 Pneumococcal Conjugate Vacc, 13 Valent (Prevnar) [...] ages 0-17 years) Not on file 03/27/2024 Are you homeless or worried that [...] Sign Reading Time Taken Comments Blood Pressure 115/74 04/20/2024 11:48 AM EDT Pulse 89 04/20/2024 11:48 AM EDT Temperature 37 C (98.6 F) 04/20/2024 11: 48 AM EDT Respiratory Rate 16 04/20/2024 11:4 8 AM EDT Oxygen Saturation 98% 04/20/2024 11: 48 AM EDT Inhaled Oxygen Concentration - - Weight 56.1 kg (123 lb 11.2 oz) 024 11:48 AM EDT Height 165.7 cm (5' 5.25") 04/20/2024 1 1:48 AM EDT Body Mass Index 20.43 04/20/2024 11:48 AM EDT documented in this encounter Progress Notes * Jonah Felipe MD - 04/20/2024 12:15 PM EDT Hematology/Oncology Outpatient Consult Note [address] [place] [place] [address] MARTHA VARGAS MR # [id number] :1950 73 years old female, REASON FOR CONSULTATION: Consultation for Martha Vagras requested by Dr. James for evaluation and discussion of treatment options for anemia. Date of consultation:04/20/2024 DIAGNOSIS: -normocytic anemia, most likely related to the bone marrow suppression with the CellCept therapy which was started in December 2023. 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 She has interstitial lungdisease and for that she is on CellCept since 12/2023. CURRENT TREATMENT: No active treatment from Hematology at this time. Slight improvement of hemoglobin level around 10.6 noted in the blood workup done on 04/19/2024. DIAGNOSTIC WORKUP: She has underlying CREST syndrome [...] was 12.4, MCV 97, Platelet count of [id number] In the last 3 months, slight drop in the hemoglobin level noted to around 10.7, MCV 97, normal WBC and normal Platelet count (03/21/2024) -Hemoglobin and hematocrit -10.2/32 (04/04/2024) Latest blood workup done on 04/19/2024: -WBC 6900, Hemoglobin and hematocrit -10.6/33, MCV 96, Platelet count of [id number]. Anemia workup as follows: -Absolute reticulocyte count --> 77,000 -Serum iron: 100, TIBC 294, iron saturation 34% -Ferritin level--> 55 -serum creatinine level --> 0.8 -TSH --> 2.0 -folic acid--> > 20 -Vitamin B12 --> 550. INTERVAL HISTORY: She has come the clinic for the initial evaluation, accompanied by her in the office. She does come shortness of breath on exertion, mild coughing, no nausea no vomiting, no fever, no increasing joint pain, she is not on any pain medication on regular basis. Denies any bleeding from the sites. She is not on oral iron replacement therapy, she takes multivitamin supplementation every day. No abdominal symptoms. No blood in the stool. No black stool. Stable weight around 123 lb. Last upper GI endoscopic was done in October 2023. She did not require any esophageal stretching REVIEW OF SYSTEMS: GENERAL: No change in weight, feels weak abd tired, no fever, sweats or chills. SKIN: No skin rash, no bruising. HEAD: No new headache, no dizziness. EYES: No recent change in the vision, no diplopia, EARS: No earache no tinnitus, NOSE: No epistaxis, No nasal discharge or stuffiness, MOUTH: No sores, no dysphagia, no hoarseness of voice, NECK: No lumps, No swelling in thyroid area. No stiffness. PULMONARY: cough, shortness of breath, no hemoptysis, no chest pain, No wheezing. CARDIOVASCULAR: No anginal chest pain, no PND, no orthopnea. No palpitation, no leg edema. No syncope. GASTROINTESTINAL: No abdominal pain, no nausea or vomiting. No diarrhea, No constipation. No blood in stool or black tarry stools. No abdominal distention. UROLOGIC: No burning urination. No hematuria. MUSCULOSKELETAL: No joint pain, No joint swelling, no muscle weakness. HEMATOLOGIC: anemia, no bleeding disorder, No bruising. NEUROLOGIC: No seizures, no focal weakness, no speech difficulty, No memory disturbances. No tingling or numbness of the extremities. PSYCHIATRIC: No depression. No anxiety. No psychosis. Past Medical History: Diagnosis Date Dyslipidemia 05/12/2020 Esophageal reflux 01/10/2008 esophageal reflux MAYANK (generalized anxiety disorder) 01/26/2018 Mild chronic gastritis 05/11/2018 Other specified gastritis without mention of hemorrhage 01/10/2008 mild gastric irritation Sigmoid diverticulosis 03/28/2024 Past Surgical History: Procedure Laterality Date COLONOSCOPY 10/2006 negative- repeat in 5 years due to FH colon cancer in father COLONOSCOPY, DIAGNOSTIC (RECTUM) 11/11/2011 normal COLONOSCOPY, DIAGNOSTIC (RECTUM) 01/28/2017 normal, repeat 5 yrs/COLONOSCOPY FLEXIBLE PROXIMAL DIAGNOSTIC performed by Adriana Bruno DO at ENDOSCOPY [facility] COLONOSCOPY, DIAGNOSTIC (RECTUM) 10/07/2022 diverticulosis in sigmoid colon, otherwise normal / no specimens collected / 5 year recall / COLONOSCOPY FLEXIBLE PROXIMAL DIAGNOSTIC performed by Adriana Bruno DO at [facility] EGD, FLEXIBLE, DIAGNOSTIC 02/16/2018 acid reflux/ESOPHAGOGASTRODUODENOSCOPY (EGD), FLEXIBLE, TRANSORAL, DIAGNOSTIC performed by Adriana Bruno DO at ENDOSCOPY [facility] EGD, FLEXIBLE, DIAGNOSTIC 08/20/2020 Maira esophagitis, severe reflux / ESOPHAGOGASTRODUODENOSCOPY (EGD), FLEXIBLE, TRANSORAL, DIAGNOSTIC performed by Adriana Bruno DO at [facility] EGD, FLEXIBLE, DIAGNOSTIC 10/22/2020 eso inflammation on bx / ESOPHAGOGASTRODUODENOSCOPY (EGD), FLEXIBLE, TRANSORAL, DIAGNOSTIC performed by Jordan Mukherjee MD at [facility] EGD, FLEXIBLE, DIAGNOSTIC 10/19/2023 ESOPHAGOGASTRODUODENOSCOPY (EGD), FLEXIBLE, TRANSORAL, DIAGNOSTIC performed by Jennifer Young DO at [facility] EGD, FLEXIBLE, W/BIOPSY 01/10/2008 GERD and gastric irritation EXERCISE ECHO 12/14/2007 no ischemic changes at high workload achieved PARTIAL HYSTERECTOMY age 33 for endometriosis; left ovary remains REMOVE CATARACT, INSERT LENS PROSTH Left 12/05/2018 left EXTRACAPSULAR CATARACT REMOVAL WITH INTRAOCULAR LENS performed by Rick Cantu MD at [facility] REMOVE CATARACT, INSERT LENS PROSTH Right 12/12/2018 right EXTRACAPSULAR CATARACT REMOVAL WITH INTRAOCULAR LENS performed by Rick Cantu MD at 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 LABS: As described above IMAGING: CT chest( 09/28/2024) 1. Findings consistent [...] marrow suppression with CellCept but at the symptoms we are notseeing neutropenia or thrombocytopenia. Slight improvement of hemoglobin noted in the blood workup done yesterday with hemoglobin around 10.6 g/dL. She denies any bleeding from the sites, had upper GI endoscopy earlier this year. No esophageal stretching needed at that time. With her underlying chronic inflammation, I would have expected somewhat higher Ferritin level. Shemay have iron deficiency anemia which may be mild. I would like to repeat Ferritin, iron profile, soluble transferrin receptor for further evaluation. Will decide about need for iron therapy after reviewing the additional blood workup I am planning to see her back in the clinic in about 6 weeks. Thanks for the consultation Dr. Jonah Felipe Hem/Onc (This note was completed using the dictation program Fluency Direct. As such, there may be misspellings word substitutions, or other variations that should not change the essence of the clinical content of this encounter note. If there is need for further clarification, please direct questions to the provider listed above.) documented in this encounter Nursing Notes * Leeann Hinojosa LPN - 04/20/2024 11:50 AM EDT Patient identifed by name and birthdate Do you have any concerns about pain management for today's visit? No Living Will or Advance Directive for Health Care as noted on the problem list. [facility] is a way you can talk to your provider on line through e-mail. Would you like to sign up? I can activate it for you? ALREADY ACTIVE Filed Vitals: 04/20/24 1148 BP: 115/74 Pulse: 89 Resp: 16 Temp: 37 C (98.6 F) TempSrc: Tympanic SpO2: 98% Weight: 56.1 kg (123 lb 11.2 oz) Height: 1.657 m (5' 5.25") Patient was instructed to not get up [...] 9:00 AM EDT Office Visit Family Practice [facility] [address] [place] [address] Abelardo James MD [address] [place] [address] 05/31/2024 2:45 PM EDT Office Visit Hematology/Oncology [facility] [place] [address] [facility] [place] [phone] Jonah Felipe MD [address] [facility] [place] [address] 06/07/2024 9:30 AM EDT Office Visit Pulmonary Medicine, [place] [address] [place] [address] Bruce Villegas MD [address] [place] [address] 06/19/2024 9:40 AM EDT Office Visit Rheumatology [facility] [address] [facility] [place] [address] Mihir Gomes MD [address] [facility] [place] [address] 03/13/2025 7:15 AM EDT Imaging Radiology [facility] [address] [facility] [address] [place] [address] Pending Results Name Type Priority Associated Diagnoses Date /Time IRON SCREEN, INCLUDING TIBC Lab Routine CREST syndrome (HCC) Normocytic anemia 04/20/2024 12:43 PM EDT FERRITIN Lab Routine CREST syndrome (HCC) Normocytic anemia 04/20/2024 12:43 PM EDT SOLUBLE TRANSFERRIN RECEPTOR Lab Routine CREST syndrome (HCC) Normocytic anemia 04/20/2024 12:43 PM EDT Scheduled Procedures Name Priority Associated [...] D LEVEL ONCE IN A LIFETIME-USE SMARTSET# [id number] Completed 06/09/2018 Zoster Vaccines Completed 04/14/2020, 11/03, [...] this encounter Medical Devices Implanted Type Area Information Assurance Specialist Device Identifier Shelf Expiration Date Model / Serial / Lot Lens Intraoc 20.0 - [id number] - [id number] Implanted:Qty: 1 on 12/05/2018 by Rick Cantu MD at OR [facility] Left: Eye [employer]USCH [employer] LOMB 06/02/2023 [id number] / [id number] / [id number] Lens Intraoc 16.0 - [id number] - [id number] Implanted:Qty: 1 on 12/12/2018 by Rick Cantu MD at OR [facility] Right: Eye BAUSCH & LOMB 04/01/2023 [id number] / [id number] / [id number] documented as of this encounter Visit Diagnoses Diagnosis Normocytic anemia- Primary Anemia, unspecified CREST syndrome (HCC) Systemic sclerosis Screening mammogram for breast cancer documented in this encounter Care Teams Php Mysql Developer Relationship Specialty Start Date End Date Abelardo James MD [address] [place] [address] PCP - General Family Medicine 11/09/18 documented as of this encounter
--- OUTSIDE RECORDS SUMMARY | 2024-07-01 19:01 | External Medical Summary | Summary of Care ---
Author Name Unknown Organization [facility] Address [address] [place] [address] Phone [phone] Care Team Providers Care Physics Department Chair Name Role Phone Abelardo James MD Primary Care Provider +1 [phone] Reason for Visit * Reason Comments Outpatient Testing Encounter Details Date Type Department Care Team (Late st Contact Info) Description 04/18/2024 8:20 AM EDT Laboratory Laboratory, [facility] [address] [place] [phone] [facility] [address] [address] Arrived Allergies Active Allergy Reactions Criticality Noted Date Comments Nitrofurantoin Cough 12/15/2023 Omeprazole 12/26/2007 Itchiness and rash documented as of this encounter (statuses as of 04/18/2024) Medications Medication Sig Dispensed Refills Start Date [...] as of this encounter (statuses as of 04/18/2024) Active Problems Problem Noted Date Diagnosed Date Sigmoid diverticulosis 03/28/2024 ILD (interstitial lung disease) 08/22/2023 Benign paroxysmal vertigo of left ear 11/23/2022 Dyslipidemia 05/12/2020 Age-related osteoporosis wit hout current pathological fracture 07/18/2019 Overview: More specific. Mild chronic gastritis 05/11/2018 MAYANK (generalized anxiety disorder) 01/26/2018 CREST syndrome 10/21/2011 Essential tremor 12/07/2002 documented as of this encounter (statuses as of 04/18/2024) Resolved Problems Problem Noted Date Diagnosed Date [...] as of this encounter (statuses as of 04/18/2024) Immunizations Name Administration Dates Next Due COVID-19 mRNA, LNP-s, No Pre serve, 2-Dose Series (Waze) 12/10/2020,11/19/2020 Pneumococcal Conjugate Vacc, 13 Valent (Prevnar) [...] 04/20/2024 12:15 PM EDT Office Visit Hematology[facility]Oncology [facility] [place] [address] [place] [phone] Jonah Felipe MD [address] [facility] [place] [address] 05/14/2024 9:00 AM EDT Office Visit Family Practice [facility] [address] [facility] [place] [address] Abelardo James MD [address] [facility] [place] [address] 06/07/2024 9:30 AM EDT Office Visit Pulmonary Medicine, [place] [address] [place] [address] Bruce Villegas MD [address] [place] [address] 06/19/2024 9:40 AM EDT Office Visit Rheumatology [place] [address] [place] [address] Mihir Gomes MD [address] [place] [address] 03/13/2025 7:15 AM EDT Imaging Radiology [address] [facility] [place] [address] Scheduled Procedures Name Priority Associated Diagnoses Date/Ti [...] D LEVEL ONCE IN A LIFETIME-USE SMARTSET# [id number] Completed 06/09/2018 Zoster Vaccines Completed 04/14/2020, 11/03, [...] this encounter Medical Devices Implanted Type Area Hospice Home Health Aide Device Identifier Shelf Expiration Date Model / Serial / Lot Lens Intraoc 20.0 - [id number] - [id number] Implanted:Qty: 1 on 12/05/2018 by Rick Cantu MD at OR [facility] Left: Eye BAUSCH & LOMB 06/02/2023 [id number] / [id number] / [id number] Lens Intraoc 16.0 - [id number] - [id number] Implanted:Qty: 1 on 12/12/2018 by Rick Cantu MD at OR [facility] Right: Eye BAUSCH & LOMB 04/01/2023 [id number] / [id number] / [id number] documented as of this encounter Care Teams Physics Department Chair Relationship Specialty Start Date End Date Abelardo James MD [address] [facility] [place] [address] PCP - General Family Medicine 11/09/18 documented as of this encounter
--- OUTSIDE RECORDS SUMMARY | 2024-07-01 19:01 | External Medical Summary ---
Author Name Unknown Address Unknown Organization K01:LABORATORY C - [address] [facility] [place] [address] Laboratory Report Ordering Provider Test Date Status THI SAAVEDRA 04/20/2024 12:43:30 Final Observation Date Value Abnormality Reference (Units ) Status Ferritin 04/20/2024 12:43:30 59 13-150 (ng /mL) Final Postmenopausal women have hi gher ferritin levels than pre-menopausal women. The above reference interval is based on pre-menopausal women. Performing Location [facility] - [address] [place] [address]
--- OUTSIDE RECORDS SUMMARY | 2024-07-01 19:01 | External Medical Summary | Summary of Care ---
Author Name Unknown Organization [facility] Address [address] [facility] [place] [address] Phone [phone] Care Team Providers Care Regional Maintenance Manager Name Role Phone Abelardo James MD Primary Care Provider +1 -[phone] Reason for Visit * Reason Comments Outpatient Testing Encounter Details Date Type Department Care Team (Late st Contact Info) Description 04/19/2024 2:10 PM EDT Laboratory Laboratory, [facility] [address] [place] [phone] [facility] [address] [facility] [address] ILD (interstitial lung disease) ([facility]) Allergies Active Allergy Reactions Criticality Noted Date Comments Nitrofurantoin Cough 12/15/2023 Omeprazole 12/26/2007 Itchiness and rash documented as of this encounter (statuses as of 04/19/2024) Medications Medication Sig Dispensed Refills Start Date [...] as of this encounter (statuses as of 04/19/2024) Active Problems Problem Noted Date Diagnosed Date Sigmoid diverticulosis 03/28/2024 ILD (interstitial lung disease) 08/22/2023 Benign paroxysmal vertigo of left ear 11/23/2022 Dyslipidemia 05/12/2020 Age-related osteoporosis wit hout current pathological fracture 07/18/2019 Overview: More specific. Mild chronic gastritis 05/11/2018 MAYANK (generalized anxiety disorder) 01/26/2018 CREST syndrome 10/21/2011 Essential tremor 12/07/2002 documented as of this encounter (statuses as of 04/19/2024) Resolved Problems Problem Noted Date Diagnosed Date [...] as of this encounter (statuses as of 04/19/2024) Immunizations Name Administration Dates Next Due COVID-19 [...] 04/20/2024 12:15 PM EDT Office Visit Hematology/Oncology [facility] [address] [place] [address] Jonah Felipe MD [address] [place] [address] 05/14/2024 9:00 AM EDT Office Visit Family Practice [facility] [address] [facility] [place] [address] Abelardo James MD [address] [place] [address] 06/07/2024 9:30 AM EDT Office Visit Pulmonary Medicine, [place] [address] [place] [address] Bruce Villegas MD [address] [place] [address] 06/19/2024 9:40 AM EDT Office Visit Rheumatology [place] [phone] [facility] [place] [address] Mihir Gomes MD [facility] [facility] [place] [address] 03/13/2025 7:15 AM EDT Imaging Radiology [address] [place] [address] Scheduled Procedures Name Priority Associated Diagnoses Date/Ti [...] D LEVEL ONCE IN A LIFETIME-USE SMARTSET# [id number] Completed 06/09/2018 Zoster Vaccines Completed 04/14/2020, 11/03, [...] this encounter Medical Devices Implanted Type Area Chisel Worker Device Identifier Shelf Expiration Date Model / Serial / Lot Lens Intraoc 20.0 - [id number] - [id number] Implanted:Qty: 1 on 12/05/2018 by Rick Cantu MD at OR [facility] Left: Eye BAUSCH & LOMB 06/02/2023 [id number] / [id number] / [id number] Lens Intraoc 16.0 - [id number] - [id number] Implanted:Qty: 1 on 12/12/2018 by Rick Cantu MD at OR [facility] Right: Eye BAUSCH & LOMB 04/01/2023 [id number] / [id number] / [id number] documented as of this encounter Procedures Procedure Name Priority Date/Time Associated Diagnosis Comments CBC Routine 04/19/2024 1:53 PM EDT ILD (interstitial lung disease) (HCC) documented in this encounter Results * (ABNORMAL) CBC (04/19/2024 1:53 PM EDT) WBC 6.95 4.00 - 10.80 K/uL 04/19/2024 2:03 PM EDT [facility] [place] [facility] RBC 3.45 3.85 - 5.15 M/uL 04/19/2024 2:03 PM EDT [facility] [place] [facility] HGB 10.6(L) 12.0 - 15.3 g/dL 04/19/2024 2:03 PM EDT [facility] [place] [facility] HCT 33.1(L) 36.0 - 45.2 % 04/19/2024 2:03 PM EDT [facility] [place] [facility] MCV 95.9 81.5 - 97.5 fL 04/19/2024 2:03 PM EDT [facility] [place] [facility] MCH 30.7 27.0 - 34.0 pg 04/19/2024 2:03 PM EDT [facility] [place] [facility] MCHC 32.0 32.0 - 36.0 g/dL 04/19/2024 2:03 PM EDT [facility] [place] [facility] RDW 14.0 11.5 - 15.5 % 04/19/2024 2:03 PM EDT [facility] [place] [facility] PLT 320 140 - 400 K/uL 04/19/2024 2:03 PM EDT [facility] [place] [facility] MPV 9.4 6.6 - 11.1 fL 04/19/2024 2:03 PM EDT [facility] [place] [facility] Blood Venous blood specimen / Unknown Venipuncture / Unknown 04/19/2024 1:53 PM EDT 04/19/2024 1:53 PM EDT Bruce Villegas MD LAB BLOOD ORDERABLES [facility] [place] [facility] [place] [address] documented in this encounter Visit Diagnoses Diagnosis ILD (interstitial lung disease) (HCC) Postinflammatory pulmonary fibrosis Screening mammogram for breast cancer documented in this encounter Care Teams Regional Maintenance Manager Relationship Specialty Start Date End Date Abelardo James MD [address] [place] [address] PCP - General Family Medicine 11/09/18 documented as of this encounter
--- OUTSIDE RECORDS SUMMARY | 2024-07-01 19:02 | External Medical Summary ---
Author Name Unknown Address Unknown Organization [facility] [address] [place] [address] Laboratory Report Ordering Provider Test Date Status TAMMI CASAS 03/21/2024 08:06:55 Final Observation Date Value Abnormality Reference (Units ) Status WBC, Total 03/21/2024 08:06:55 4.92 4.00-10.8 0 (K/uL) Final RBC 03/21/2024 08:06:55 3.47 3.85-5.15 (M/uL) Final Hemoglobin 03/21/2024 08:06:55 10.7 Below low normal 12 .0-15.3 (g/dL) Final HCT 03/21/2024 08:06:55 33.9 Below low normal 36. 0-45.2 (%) Final MCV 03/21/2024 08:06:55 97.7 81.5-97.5 (fL) Final MCH 03/21/2024 08:06:55 30.8 27.0-34.0 (pg) Final MCHC 03/21/2024 08:06:55 31.6 32.0-36.0 (g/dL) Final RDW 03/21/2024 08:06:55 14.3 11.5-15.5 (%) Final Platelets 03/21/2024 08:06:55 292 140-400 (K /uL) Final MPV 03/21/2024 08:06:55 9.4 6.6-11.1 ( fL) Final Performing Location LABORATORY [facility] [place] [facility] 0 - [address] [place] [address]
--- OUTSIDE RECORDS SUMMARY | 2024-07-01 19:02 | External Medical Summary | Summary of Care ---
Author Name Unknown Organization [facility] Address [address] [facility] [place] [address] Phone [phone] Care Team Providers Care Decorating And Assembly Supervisor Name Role Phone Abelardo James MD Primary Care Provider [phone] [phone] Reason for Visit * Reason Comments Follow Up Pt here to follow up on recent anemia diagnosis Encounter Details Date Type Department Care Team (Latest Contact Info) Description 03/28/2024 11:40 AM EDT Office Visit Family Practice [facility] [address] [facility] [place] [address] Abelardo James MD [address] [facility] [place] [address] Anemia following use of chemotherapeutic drug* Allergies Active Allergy Reactions Criticality Noted Date Comments Nitrofurantoin Cough 12/15/2023 Omeprazole 12/26/2007 Itchiness and rash documented as of this encounter (statuses as of 03/29/2024) Medications Medication Sig Dispensed Refills Start Date [...] 3 3 Active Colchicine 0.6 MG Oral TabletIndications:C alcinosis [...] TIMES A DAY 200 Tablet 1 3 09/14/20 24 Active Hair Skin & Nails Oral Tablet Take by mouth. Active Mycophenolate Mofetil 500 MG Oral Tablet (CellCept) Take 3 Tablets by mouth in the morning and 3 Tablets before bedtime. 540 Tablet 4 05/20/20 24 Active Elderberry Immune Complex Oral Tablet Chewable Take by mouth daily. 03/28/20 24 Discontinued documented as of this encounter (statuses as of 03/29/2024) Active Problems Problem Noted Date Diagnosed Date Sigmoid diverticulosis 03/28/2024 ILD (interstitial lung disease) 08/22/2023 Benign paroxysmal vertigo of left ear 11/23/2022 Dyslipidemia 05/12/2020 Age-related osteoporosis wit hout current pathological fracture 07/18/2019 Overview: More specific. Mild chronic gastritis 05/11/2018 MAYANK (generalized anxiety disorder) 01/26/2018 CREST syndrome 10/21/2011 Essential tremor 12/07/2002 documented as of this encounter (statuses as of 03/29/2024) Resolved Problems Problem Noted Date Diagnosed Date [...] as of this encounter (statuses as of 03/29/2024) Immunizations Name Administration Dates Next Due COVID-19 mRNA, LNP-s, No Pre serve, 2-Dose Series ([employer]) 12/10/2020,11/19/2020 Pneumococcal Conjugate Vacc, 13 Valent (Prevnar) [...] Sign Reading Time Taken Comments Blood Pressure 108/64 03/28/2024 11:29 AM EDT Pulse 72 03/28/2024 11:29 AM EDT Temperature 36.8 C (98.2 F) 03/28/2024 11:29 AM E DT Respiratory Rate 18 03/28/2024 11:29 AM EDT Oxygen Saturation - - Inhaled Oxygen Concentration - - Weight 54.9 kg (121 lb) 03/28/2024 11:29 AM EDT Height 165.7 cm (5' 5.25") 03/28/2024 11:29 AM E DT Body Mass Index 19.98 03/28/2024 11:29 AM EDT documented in this encounter Progress Notes * Abelardo James MD - 03/29/2024 8:19 PM EDT SUBJECTIVE: Martha Vargas is a 73 year old female. Chief Complaint Patient presents with Follow Up Pt here to follow up on recent anemia diagnosis HPI: Mild anemia. Likely from CellCept but pulm wanted us to work it up. No signs of bleeding. Colonoscopy reviewed. Will recheck labs. Patient Active Problem List Diagnosis Essential tremor CREST syndrome (HCC) MAYANK (generalized anxiety disorder) Mild chronic gastritis Age-related osteoporosis without current pathological fracture Dyslipidemia Benign paroxysmal vertigo of left ear ILD (interstitial lung disease) (HCC) Sigmoid diverticulosis Current Outpatient Medications Medication Sig Dispense Refill [...] TWO TIMES A DAY 200 Tablet 1 Hair Skin & Nails Oral Tablet Take by mouth. Mycophenolate Mofetil 500 MG Oral Tablet (CellCept) Take 3 Tablets by mouth in the morning and 3 Tablets before bedtime. 540 Tablet 0 No current facility-administered medications for this visit. Allergy: Review of patient's allergies indicates: Allergen Reactions Nitrofurantoin Cough Omeprazole Itchiness and rash OBJECTIVE: BP 108/64 | Pulse 72 | Temp 36.8 C (98.2 F) (Tympanic) | Resp 18 | Ht 1.657 m (5' 5.25") | Wt 54.9 kg (121 lb) | BMI 19.98 kg/m | BSA 1.59 m Gen: nad ASSESSMENT AND PLAN: (D64.81) Anemia following use of chemotherapeutic drug (primary encounter diagnosis) Plan: CBC WITH WBC DIFFERENTIAL AND ANEMIA REFLEX WORKUP, IRON, HAPTOGLOBIN, BILIRUBIN, TOTAL Follow up as needed. No other complaints were offered at this time. Abelardo James MD documented in this encounter Nursing Notes * Alie Hill LPN - 03/28/2024 11:28 AM EDT The patient has been properly identified by confirmation of name and date of . Chief Complaint Patient presents with Follow Up Pt here to follow up on recent anemia diagnosis documented in this encounter Plan of Treatment Upcoming Encounters Date Type Department Care Team (Late st Contact Info) Description 05/14/2024 9:00 AM EDT Office Visit Family Practice [facility] [address] [place] [address] Abelardo James MD 132 [facility] [place] [address] 06/07/2024 9:30 AM EDT Office Visit Pulmonary Medicine, [place] [address] [place] [address] Bruce Villegas MD [address] [place] [address] 06/19/2024 9:40 AM EDT Office Visit Rheumatology [address] [place] [address] Mihir Gomes MD [address] [place] [address] [place] [address] 03/13/2025 7:15 AM EDT Imaging Radiology [facility] 1st [facility] 132 [facility] [place] [address] Scheduled Procedures Name Priority Associated Diagnoses Date/Ti me COLONOSCOPY FLEXIBLE PROXIMA L DIAGNOSTIC Recall Family history of colon cancer Health Maintenance Due Date Last Done Comments Cologuard 1996 Fecal Occult Blood Test 1996 Sigmoidoscopy 1996 Depression Screening 11/12/2020 11/12/2019 COVID-19 Vaccine (3 - Pfizer risk series) 01/07/2021 12/10/2020, 11/19/2020 Mammogram 03/12/2025 03/12/2024, 03/03, 03/11/2023, Additional history [...] D LEVEL ONCE IN A LIFETIME-USE SMARTSET# 14819 Completed 06/09/2018 Zoster Vaccines Completed 04/14/2020, 11/03, 09/06/2012 RETIRED - COLONOSCOPY-EVERY 5 YRS AGES 18-100 Discontinued 10/07/2022, 10/07/2022, 01/28/2017, Additional history exists Influenza Vaccine (FLU shot) Completed 07/04/2023, 07/28/2022, 08/24/2021, Additional history exists GARDASIL-HPV IMMUNIZATION SERIES Aged Out No longer eligible based on patient's age to complete this topic Hepatitis B Aged Out No longer eligi ble based on patient's age to complete this topic MENINGOCOCCAL (MENACTRA/MENVEO) Aged Out No longer eligible based on patient's age to complete this topic documented as of this encounter Medical Devices Implanted Type Area Cheese Specialist Device Identifier Shelf Expiration Date Model / Serial / Lot Lens Intraoc 20.0 - [id number] - [id number] Implanted:Qty: 1 on 12/05/2018 by Rick Cantu MD at OR [facility] Left: Eye [employer] 06/02/2023 [id number] / [id number] / [id number] Lens Intraoc 16.0 - [id number] - [id number] Implanted:Qty: 1 on 12/12/2018 by Rick Cantu MD at OR [facility] Right: Eye BAUSCH [employer] LOMB 04/01/2023 [id number] / [id number] / [id number] documented as of this encounter Results * BILIRUBIN, TOTAL (03/28/2024 12:03 PM EDT) Bilirubin, Total 0.2 <=1.2 mg/dL 03/28/2024 1:48 PM EDT [facility] [place] [facility] Blood Venous blood specimen / Unknown Venipuncture / Unknown 03/28/2024 12:03 PM EDT 03/28/2024 12:03 PM EDT Abelardo James MD LAB BLOOD ORDERAB LES [facility] [place] [address] [place] [id number] * HAPTOGLOBIN (03/28/2024 12:03 PM EDT) Haptoglobin 134 30 - 200 mg/dL 03/28/2024 9:35 PM EDT [facility] Blood Venous blood specimen / Unknown Venipuncture / Unknown 03/28/2024 12:03 PM EDT 03/28/2024 12:03 PM EDT Abelardo James MD LAB BLOOD ORDERAB LES [facility] [address] [place] [address] * IRON (03/28/2024 12:03 PM EDT) Iron 100 33 - 151 ug/dL 03/28/2024 9:35 PM EDT [facility] Blood Venous blood specimen / Unknown Venipuncture / Unknown 03/28/2024 12:03 PM EDT 03/28/2024 12:03 PM EDT Abelardo James MD LAB BLOOD ORDERAB LES [facility] [address] [place] [address] documented in this encounter Visit Diagnoses Diagnosis Anemia following use of chemotherapeutic drug- Primary Screening mammogram for breast cancer documented in this encounter Care Teams Decorating And Assembly Supervisor Relationship Specialty Start Date End Date Abelardo James MD [address] [place] [address] PCP - General Family Medicine 11/09/18 documented as of this encounter
--- OUTSIDE RECORDS SUMMARY | 2024-07-01 19:02 | External Medical Summary | Summary of Care ---
Author Name Unknown Organization [facility] Address [address] [facility] [place] [address] Phone [phone] Care Team Providers Care Wrecking Supervisor Name Role Phone Abelardo James MD Primary Care Provider [phone] Reason for Visit * Reason Comments Outpatient Testing Encounter Details Date Type Department Care Team (Latest Contact Info) Description 03/28/2024 12:20 PM EDT Laboratory Laboratory, [facility] [address] [place] [address] [facility] 132 [place] [address] Anemia following use of chemotherapeutic drug Allergies Active Allergy Reactions Criticality Noted Date Comments Nitrofurantoin Cough 12/15/2023 Omeprazole 12/26/2007 Itchiness and rash documented as of this encounter (statuses as of 03/28/2024) Medications Medication Sig Dispensed Refills Start Date [...] TWO TIMES A DAY 200 Tablet 1 09/15/2023 09/14/2024 Active Hair Skin & Nails Oral Tablet Take by mouth. Active Mycophenolate Mofetil 500 MG Oral Tablet (CellCept) Take 3 Tablets by mouth in the morning and 3 Tablets before bedtime. 540 Tablet 02/20/2024 05/20/2024 Active documented as of this encounter (statuses as of 03/28/2024) Active Problems Problem Noted Date Diagnosed Date Sigmoid diverticulosis 03/28/2024 ILD (interstitial lung disease) 08/22/2023 Benign paroxysmal vertigo of left ear 11/23/2022 Dyslipidemia 05/12/2020 Age-related osteoporosis wit hout current pathological fracture 07/18/2019 Overview: More specific. Mild chronic gastritis 05/11/2018 MAYANK (generalized anxiety disorder) 01/26/2018 CREST syndrome 10/21/2011 Essential tremor 12/07/2002 documented as of this encounter (statuses as of 03/28/2024) Resolved Problems Problem Noted Date Diagnosed Date [...] as of this encounter (statuses as of 03/28/2024) Immunizations Name Administration Dates Next Due COVID-19 [...] 9:00 AM EDT Office Visit Family Practice [facility] [address] [place] [address] Abelardo James MD [address] [place] [address] 06/07/2024 9:30 AM EDT Office Visit Pulmonary Medicine, [place] [address] [place] [address] Bruce Villegas MD [address] [place] [address] 06/19/2024 9:40 AM EDT Office Visit Rheumatology [address] [place] [address] Mihir Gomes MD [address] [place] [address] [place] [address] 03/13/2025 7:15 AM EDT Imaging Radiology [facility] [address] [facility] [address] [place] [address] Pending Results Name Type Priority Associated Diagnoses Date /Time CBC WITH WBC DIFFERENTIAL AND ANEMIA REFLEX WORKUP Lab Routine Anemia following use of chemotherapeutic drug 03/28/2024 12:03 PM EDT IRON Lab Routine Anemia following use of chemotherapeutic drug 03/28/2024 12:03 PM EDT HAPTOGLOBIN Lab Routine Anemia following use of chemotherapeutic drug 03/28/2024 12:03 PM EDT BILIRUBIN, TOTAL Lab Routine Anemia following use of chemotherapeutic drug 03/28/2024 12:03 PM EDT ANEMIA CBC Lab Routine Anemia following use of chemotherapeutic drug 03/28/2024 12:03 PM EDT DIFFERENTIAL, AUTOMATED Lab Routine Anemia following use of chemotherapeutic drug 03/28/2024 12:03 PM EDT ANEMIA REFLEX CHEMISTRY HOLD Lab Routine Anemia following use of chemotherapeutic drug 03/28/2024 12:03 PM EDT Scheduled Procedures Name Priority Associated [...] D LEVEL ONCE IN A LIFETIME-USE SMARTSET# [id number] Completed 06/09/2018 Zoster Vaccines Completed 04/14/2020, 11/03, [...] this encounter Medical Devices Implanted Type Area Chief Hydroelectric Station Operator Device Identifier Shelf Expiration Date Model / Serial / Lot Lens Intraoc 20.0 - [id number] - [id number] Implanted:Qty: 1 on 12/05/2018 by Rick Cantu MD at OR [facility] Left: Eye [employer] 06/02/2023 [id number] / [id number] / [id number] Lens Intraoc 16.0 - [id number] - [id number] Implanted:Qty: 1 on 12/12/2018 by Rick Cantu MD at OR [facility] Right: Eye [employer] LOMB 04/01/2023 [id number] / [id number] / [id number] documented as of this encounter Visit Diagnoses Diagnosis Anemia following use of chemotherapeutic drug Screening mammogram for breast cancer documented in this encounter Care Teams Wrecking Supervisor Relationship Specialty Start Date End Date Abelardo James MD [address] [place] [address] PCP - General Family Medicine 11/09/18 documented as of this encounter
--- OUTSIDE RECORDS SUMMARY | 2024-07-01 19:02 | External Medical Summary ---
Author Name Unknown Address Unknown Organization [id number]:[place] [place] [address] [place] [address] Laboratory Report Ordering Provider Test Date Status HILARIA CRISOSTOMO 03/28/2024 12:03:20 Final Please add peripheral smear Observation Date Value Abnormality Reference (Units ) Status Folic Acid 03/28/2024 12:03:20 >20.0 >4.5 (ng/ mL) Final Performing Location LAB[facility]ATORY [facility] - [address] [place] [address]
--- OUTSIDE RECORDS SUMMARY | 2024-07-01 19:02 | External Medical Summary ---
Author Name Unknown Address Unknown Organization [id number]:[facility]ATORY [facility] [place] - [address] [facility] [place] [address] Laboratory Report Ordering Provider Test Date Status HILARIA CRISOSTOMO 03/28/2024 12:03:20 Final Please add peripheral smear Observation Date Value Abnormality Reference (Units ) Status WBC, Total 03/28/2024 12:03:20 5.11 4.00-10.8 0 (K/uL) Final RBC 03/28/2024 12:03:20 3.58 3.85-5.15 (M/uL) Final Hemoglobin 03/28/2024 12:03:20 11.2 Below low normal 12 .0-15.3 (g/dL) Final Anemia reflex testing trigge rs on a HGB < 12.0 for Females and HGB < 13.0 for Males in accordance with the WHO Anemia Guidelines
Anemia reflex testing triggers on a HGB < 12.0 for Females and HGB < 13.0 for Males in accordance with the WHO Anemia Guidelines HCT 03/28/2024 12:03:20 35.9 Below low normal 36. 0-45.2 (%) Final MCV 03/28/2024 12:03:20 100.3 81.5-97.5 (fL) Final MCH 03/28/2024 12:03:20 31.3 27.0-34.0 (pg) Final MCHC 03/28/2024 12:03:20 31.2 32.0-36.0 (g/dL) Final RDW 03/28/2024 12:03:20 14.5 11.5-15.5 (%) Final Platelets 03/28/2024 12:03:20 307 140-400 (K /uL) Final MPV 03/28/2024 12:03:20 10.5 6.6-11.1 ( fL) Final Nucleated erythrocytes/100 leukocytes [Ratio] in Blood by Automated count 03/28/2024 12:03:20 0 <=0 (/100 WBCs) Fi nal Performing Location LABORATORY [facility] [place] - [facility] [address] [facility] [address]
--- OUTSIDE RECORDS SUMMARY | 2024-07-01 19:02 | External Medical Summary ---
Author Name Unknown Address Unknown Organization [id number]:[facility]ORATORY [facility] [place] [address] [place] [address] Laboratory Report Ordering Provider Test Date Status HILARIA CRISOSTOMO 03/28/2024 12:03:20 Final Please add peripheral smear Observation Date Value Abnormality Reference (Units ) Status TSH 03/28/2024 12:03:20 2.00 0.27-4.20 (uIU/mL) Final Performing Location [facility] - [address] [place] [address]
--- OUTSIDE RECORDS SUMMARY | 2024-07-01 19:02 | External Medical Summary ---
Author Name Unknown Address Unknown Organization [id number]:[facility]ATORY [place] [address] - [address] [place] [address] Laboratory Report Ordering Provider Test Date Status HILARIA CRISOSTOMO 03/28/2024 12:03:20 Final Observation Date Value Abnormality Reference (Units ) Status Bilirubin, Total 03/28/2024 12:03:20 0.2 <=1 .2 (mg/dL) Final Performing Location [facility] 0 - [address] [place] [address]
--- OUTSIDE RECORDS SUMMARY | 2024-07-01 19:02 | External Medical Summary | Summary of Care ---
Author Name Unknown Organization [facility] Address [address] [place] [address] Phone [phone] Care Team Providers Care Electronics Technology Instructor Name Role Phone Abelardo James MD Primary Care Provider +1 [phone] Encounter Details Date Type Department Care Team (Late st Contact Info) Description 04/04/2024 Telephone Family Practice [facility] [address] [place] [address] Abelardo James MD [address] [facility] [place] [address] Allergies Active Allergy Reactions Criticality Noted Date Comments Nitrofurantoin Cough 12/15/2023 Omeprazole 12/26/2007 Itchiness and rash documented as of this encounter (statuses as of 04/04/2024) Medications Medication Sig Dispensed Refills Start Date [...] as of this encounter (statuses as of 04/04/2024) Active Problems Problem Noted Date Diagnosed Date Sigmoid diverticulosis 03/28/2024 ILD (interstitial lung disease) 08/22/2023 Benign paroxysmal vertigo of left ear 11/23/2022 Dyslipidemia 05/12/2020 Age-related osteoporosis wit hout current pathological fracture 07/18/2019 Overview: More specific. Mild chronic gastritis 05/11/2018 MAYANK (generalized anxiety disorder) 01/26/2018 CREST syndrome 10/21/2011 Essential tremor 12/07/2002 documented as of this encounter (statuses as of 04/04/2024) Resolved Problems Problem Noted Date Diagnosed Date [...] as of this encounter (statuses as of 04/04/2024) Immunizations Name Administration Dates Next Due COVID-19 mRNA, LNP-s, No Pre serve, 2-Dose Series ([employer]) 12/10/2020,11/19/2020 Pneumococcal Conjugate Vacc, 13 Valent (Prevnar) [...] 9:00 AM EDT Office Visit [facility] [place] [address] Abelardo James MD [address] [place] [address] 06/07/2024 9:30 AM EDT Office Visit Pulmonary Medicine, [place] [address] [place] [address] Bruce Villegas MD [address] [place] [address] 06/19/2024 9:40 AM EDT Office Visit Rheumatology [address] [address] Mihir Gomes MD [address] [place] [address] [place] [address] 03/13/2025 7:15 AM EDT Imaging Radiology [facility] 1st [facility] [address] [facility] [place] [address] Pending Results Name Type Priority Associated Diagnoses Date /Time CBC WITH WBC DIFFERENTIAL Lab Routine Anemia 04/04/2024 8:12 AM EDT Scheduled Orders Name Type Priority Associated Diagnoses Orde r Schedule CBC WITH WBC DIFFERENTIAL Lab Routine Anemia Expected: 04/04/2024 (Approximate), Expires: 04/04/2025 Scheduled Procedures Name Priority Associated Diagnoses Date/Ti [...] D LEVEL ONCE IN A LIFETIME-USE SMARTSET# [id number] Completed 06/09/2018 Zoster Vaccines Completed 04/14/2020, 11/03, [...] this encounter Medical Devices Implanted Type Area Logistics Associate Device Identifier Shelf Expiration Date Model / Serial / Lot Lens Intraoc 20.0 - [id number] - [id number] Implanted:Qty: 1 on 12/05/2018 by Rick Cantu MD at OR [facility] Left: Eye [employer] 06/02/2023 [id number] / [id number] / [id number] Lens Intraoc 16.0 - [id number] - [id number] Implanted:Qty: 1 on 12/12/2018 by Rick Cantu MD at OR [facility] Right: Eye [employer]OM[employer] 04/01/2023 [id number] / [id number] / [id number] documented as of this encounter Visit Diagnoses Diagnosis Anemia- Primary Anemia, unspecified Screening mammogram for breast cancer documented in this encounter Care Teams Electronics Technology Instructor Relationship Specialty Start Date End Date Abelardo James MD [address] [place] [address] PCP - General Family Medicine 11/09/18 documented as of this encounter
--- OUTSIDE RECORDS SUMMARY | 2024-07-01 19:02 | External Medical Summary ---
Author Name Unknown Address Unknown Organization K01:LAB[facility]ATORY [facility] - [address] [place] [address] Laboratory Report Ordering Provider Test Date Status HILARIA CRISOSTOMO 03/28/2024 12:03:20 Final Please add peripheral smear Observation Date Value Abnormality Reference (Units ) Status Iron 03/28/2024 12:03:20 100 33-151 (ug /dL) Final Iron-binding capacity 03/28/2024 12:03:20 294 250-425 (ug/dL) Final Transferrin Sat % 03/28/2024 12:03:20 34 15 -55 (%) Final Performing Location [facility] - [address] [address]
--- OUTSIDE RECORDS SUMMARY | 2024-07-01 19:02 | External Medical Summary ---
Author Name Unknown Address Unknown Organization K01:[facility]ATORY [facility] [place] [address] [facility] [place] [address] Laboratory Report Ordering Provider Test Date Status HILARIA CRISOSTOMO 03/28/2024 12:03:20 Final Please add peripheral smear Observation Date Value Abnormality Reference (Units ) Status SYNC LEUKOCYTES IN BLOOD BY AUTOMATED COUNT 03/28/2024 12:03:20 5.11 4.00-10.80 (K/uL) Final Segs 03/28/2024 12:03:20 54.4 40.0-75.0 (%) Final Lymphs % 03/28/2024 12:03:20 31.1 18.0-42.0 (%) Final Monos 03/28/2024 12:03:20 12.3 Above high normal 1.0-11.0 (%) Final Eosinophils 03/28/2024 12:03:20 1.2 0.0-6.0 (%) Final Basos 03/28/2024 12:03:20 0.6 0.0-2.0 (%) Final Immature Granulocyte, Percent 03/28/2024 12:03:20 0.4 0.0-2.0 (%) Final Absolute Segs 03/28/2024 12:03:20 2.78 1.80-7.70 (K/uL) Final Lymphs, absolute 03/28/2024 12:03:20 1.59 1.00-4.80 (K/ul) Final Monos, Abs 03/28/2024 12:03:20 0.63 0.00-1.10 (K/uL) Final Eos, Abs 03/28/2024 12:03:20 0.06 0.00-0.70 (K/uL) Final Basos, Abs 03/28/2024 12:03:20 0.03 0.00-0.20 (K/uL) Final Immature Granulocytes, Number 03/28/2024 12:03:20 0.02 0.00-0.20 (K/uL) Final Performing Location LABORATORY [facility] [place] - [facility] [place] [address]
--- OUTSIDE RECORDS SUMMARY | 2024-07-01 19:02 | External Medical Summary | Summary of Care ---
Author Name Unknown Organization [facility] Address [address] [facility] [place] [address] Phone [phone] Care Team Providers Care Perpetual Inventory Clerk Name Role Phone Abelardo James MD Primary Care Provider +1 -[phone] Reason for Visit * Reason Comments Outpatient Testing Encounter Details Date Type Department Care Team (Late st Contact Info) Description 03/21/2024 8:10 AM EDT Laboratory Laboratory, [facility] [address] [place] [id number] [facility] 132 [place] [address] ILD (interstitial lung disease) ([facility]) Allergies Active Allergy Reactions Criticality Noted Date Comments Nitrofurantoin Cough 12/15/2023 Omeprazole 12/26/2007 Itchiness and rash documented as of this encounter (statuses as of 03/21/2024) Medications Medication Sig Dispensed Refills Start Date [...] Active Additional Information Patient not taking.Reported on 10/11/2023 Esomeprazole Magnesium 40 MG Oral Capsule Delayed [...] TIMES A DAY 200 Tablet 1 09/15/2023 4 Active Elderberry Immune Complex Oral Tablet Chewable Take by mouth daily. Active Hair Skin & Nails Oral Tablet Take by mouth. Active Mycophenolate Mofetil 500 MG Oral Tablet (CellCept) Take 3 Tablets by mouth in the morning and 3 Tablets before bedtime. 540 Tablet 02/20/2024 4 Active documented as of this encounter (statuses as of 03/21/2024) Active Problems Problem Noted Date Diagnosed Date ILD (interstitial lung disease) 08/22/2023 HERRING (dyspnea on exertion) 08/22/2023 Benign paroxysmal vertigo of left ear 11/23/2022 Dyslipidemia 05/12/2020 Age-related osteoporosis wit hout current pathological fracture 07/18/2019 Overview: More specific. Mild chronic gastritis 05/11/2018 MAYANK (generalized anxiety disorder) 01/26/2018 CREST syndrome 10/21/2011 Essential tremor 12/07/2002 documented as of this encounter (statuses as of 03/21/2024) Resolved Problems Problem Noted Date Diagnosed Date Resolved Date Gastroesophageal reflux dise ase with esophagitis 01/26/2018 [...] as of this encounter (statuses as of 03/21/2024) Immunizations Name Administration Dates Next Due COVID-19 mRNA, LNP-s, No Pre serve, 2-Dose Series ([employer]) 12/10/2020,11/19/2020 Pneumococcal Conjugate Vacc, 13 Valent (Prevnar) [...] 08/06/2018 Hunger Vital Sign Answer Date Recorded Worried About Running Out of Food in the Last Ye ar Never true 08/01/2019 Ran Out of Food in the Last Year Never true 08/01/2019 Utilities Answer Date Recorded Do you have trouble paying y our heating, water, or electric bill? (Adult - for ages 18 years and over) Not on file 03/20/2024 Is your family able to pay t he heat, water, or electric bill? (Household - for ages 0-17 years) Not on file 03/20/2024 Does your family have access to good internet? (Household - for ages 0-17 years) Not on file 03/20/2024 Social Connections Answer Date Recorded How often do you feel lonely or isolated from those around you? (Adult - for ages 18 years and over) Not on file 03/20/2024 Sex and Gender Information Value Date Recorded Sex Assigned at Not on file Gender Identity Not on file Sexual Orientation Not on file Job Start Date Occupation Industry Not on file Not on file Not on file documented as of this encounter Plan of Treatment Upcoming Encounters Date Type Department Care Team (Late st Contact Info) Description 05/14/2024 9:00 AM EDT Office Visit [facility] [address] [place] [address] Abelardo James MD [address] [place] [address] 06/07/2024 9:30 AM EDT Office Visit Pulmonary Medicine, [place] [address] [place] [address] Bruce Villegas MD [address] [place] [address] 06/19/2024 9:40 AM EDT Office Visit Rheumatology [place] [id number] [place] [address] Mihir Gomes MD [facility] [employer] [place] [address] 03/13/2025 7:15 AM EDT Imaging Radiology [address] [place] [address] Scheduled Procedures Name Priority Associated Diagnoses Date/Ti me COLONOSCOPY FLEXIBLE PROXIMA L DIAGNOSTIC Recall Family history of colon cancer Health Maintenance Due Date Last Done Comments Cologuard 1996 Fecal Occult Blood Test 1996 Sigmoidoscopy 1996 Depression Screening 11/12/2020 11/12/2019 COVID-19 Vaccine (3 - Pfizer risk series) 01/07/2021 12/10/2020, 11/19/2020 Mammogram 03/12/2025 03/12/2024, 06/2023, 03/11/2023, Additional history exists DXA Scan 06/27/2025 06/27/2023, 06/04, 06/24/2021, Additional history exists Colonoscopy 10/07/2027 10/07/2022, 01/2023, 01/28/2017, Additional history exists Colorectal Cancer Screening 10/07/2027 Lipid Panel 11/23/2028 11/23/2023, 11/04, 05/05/2022, Additional history exists DTaP,Tdap,and Td Vaccines (3 - Td or Tdap) 06/21/2032 06/21/2022, 05/03/2012 Pneumococcal Vaccine: 65+ Years Completed 05/11/2018, 05/09/2017 VITAMIN D LEVEL ONCE IN A LIFETIME-USE SMARTSET# [id number] Completed 06/09/2018 Zoster Vaccines Completed 04/14/2020, 11/03, [...] this encounter Medical Devices Implanted Type Area Printing Gray Cloth Tender Device Identifier Shelf Expiration Date Model / Serial / Lot Lens Intraoc 20.0 - [id number] - [id number] Implanted:Qty: 1 on 12/05/2018 by Rick Cantu MD at OR [facility] Left: Eye BAUSCH & LOMB 06/02/2023 [id number] / [id number] Lens Intraoc 16.0 - [id number] - [id number] Implanted:Qty: 1 on 12/12/2018 by Rick Cantu MD at OR [facility] Right: Eye BAUSCH & LOMB 04/01/2023 [id number] / [id number] / [id number] documented as of this encounter Procedures Procedure Name Priority Date/Time Associated Diagnosis Comments CBC Routine 03/21/2024 8:06 AM EDT ILD (interstitial lung disease) (HCC) documented in this encounter Results * (ABNORMAL) CBC (03/21/2024 8:06 AM EDT) WBC 4.92 4.00 - 10.80 K/uL 03/21/2024 8:15 AM EDT LAB[facility] [place] [facility] RBC 3.47 3.85 - 5.15 M/uL 03/21/2024 8:15 AM EDT [facility] [place] [facility]10 HGB 10.7(L) 12.0 - 15.3 g/dL 03/21/2024 8:15 AM EDT [facility] [place] [facility]10 HCT 33.9(L) 36.0 - 45.2 % 03/21/2024 8:15 AM EDT [facility] [place] [facility]10 MCV 97.7 81.5 - 97.5 fL 03/21/2024 8:15 AM EDT [facility] [place] [facility]10 MCH 30.8 27.0 - 34.0 pg 03/21/2024 8:15 AM EDT [facility] [place] [facility]10 MCHC 31.6 32.0 - 36.0 g/dL 03/21/2024 8:15 AM EDT [facility] [place] [facility]10 RDW 14.3 11.5 - 15.5 % 03/21/2024 8:15 AM EDT [facility] [place] 57[facility]10 PLT 292 140 - 400 K/uL 03/21/2024 8:15 AM EDT [facility] [place] [facility]10 MPV 9.4 6.6 - 11.1 fL 03/21/2024 8:15 AM EDT [facility] [place] [facility]10 Blood Venous blood specimen / Unknown Venipuncture / Unknown 03/21/2024 8:06 AM EDT 03/21/2024 8:06 AM EDT Cammie LINDO LAB BLOOD ORDERA BLES [facility] [place] [facility] [address] documented in this encounter Visit Diagnoses Diagnosis ILD (interstitial lung disease) (HCC) Postinflammatory pulmonary fibrosis Screening mammogram for breast cancer documented in this encounter Care Teams Perpetual Inventory Clerk Relationship Specialty Start Date End Date Abelardo James MD [address] [place] [address] PCP - General Family Medicine 11/09/18 documented as of this encounter
--- OUTSIDE RECORDS SUMMARY | 2024-07-01 19:02 | External Medical Summary ---
Author Name Unknown Address Unknown Organization K01:[facility] - [address] [place] [address] Laboratory Report Ordering Provider Test Date Status HILARIA CRISOSTOMO 03/28/2024 12:03:20 Final Please add peripheral smear Observation Date Value Abnormality Reference (Units ) Status Ferritin 03/28/2024 12:03:20 55 13-150 (ng /mL) Final Postmenopausal women have hi gher ferritin levels than pre-menopausal women. The above reference interval is based on pre-menopausal women. Performing Location [facility] C - [address] [place] [address]
--- OUTSIDE RECORDS SUMMARY | 2024-07-01 19:02 | External Medical Summary ---
Author Name Unknown Address Unknown Organization K01:LABORATORY [facility] - [facility] [address] [place] [address] Laboratory Report Ordering Provider Test Date Status ANDRESSAHILARIA 03/28/2024 12:03:20 Final Please add peripheral smear Observation Date Value Abnormality Reference (Units ) Status Retic, % (auto) 03/28/2024 12:03:20 2.13 Above high normal 0.80-1.90 (%) Final Reticulocytes, Absolute 03/28/2024 12:03:20 77.1 31.3-100.1 (K/uL) Final Reticulocyte fraction, immature 03/28/2024 12:03:20 16.2 2.5-20.6 (%) Final Reticulocyte HGB 03/28/2024 12:03:20 34.2 29.7-37.4 (pg) Final Performing Location LABORATORY [facility] - [facility] [place] [address]
--- OUTSIDE RECORDS SUMMARY | 2024-07-01 19:02 | External Medical Summary ---
Author Name Unknown Address Unknown Organization K0G:LABORATORY [place] [facility]-10 - [address] [place] [address] Laboratory Report Ordering Provider Test Date Status HILARIA CRISOSTOMO 04/04/2024 08:12:19 Final Observation Date Value Abnormality Reference (Units ) Status WBC, Total 04/04/2024 08:12:19 5.40 4.00-10.8 0 (K/uL) Final RBC 04/04/2024 08:12:19 3.29 3.85-5.15 (M/uL) Final Hemoglobin 04/04/2024 08:12:19 10.2 Below low normal 12 .0-15.3 (g/dL) Final HCT 04/04/2024 08:12:19 31.9 Below low normal 36. 0-45.2 (%) Final MCV 04/04/2024 08:12:19 97.0 81.5-97.5 (fL) Final MCH 04/04/2024 08:12:19 31.0 27.0-34.0 (pg) Final MCHC 04/04/2024 08:12:19 32.0 32.0-36.0 (g/dL) Final RDW 04/04/2024 08:12:19 14.6 11.5-15.5 (%) Final Platelets 04/04/2024 08:12:19 295 140-400 (K /uL) Final MPV 04/04/2024 08:12:19 10.0 6.6-11.1 ( fL) Final Performing Location LABORATORY [facility] [place] [facility] 0 - [address] [place] [address]
--- OUTSIDE RECORDS SUMMARY | 2024-07-01 19:02 | External Medical Summary | Summary of Care ---
Author Name Unknown Organization [facility] Address [address] [facility] [place] [address] Phone [phone] Care Team Providers Care Candy Cooker Helper Name Role Phone Abelardo James MD Primary Care Provider +1 -[phone] Reason for Visit * Reason Onset Date Comments Referral 04/10/2024 SP 10-Day Encounter Details Date Type Department Care Team (Late st Contact Info) Description 04/10/2024 New Patient Triage (LOG CHIPPER USE ONLY) Hematology/Oncology [facility] [address] [place] [address] [address] Barraza CRNP [address] [place] [address] Referral (SP 10-Day) Allergies Active Allergy Reactions Criticality Noted Date Comments Nitrofurantoin Cough 12/15/2023 Omeprazole 12/26/2007 Itchiness and rash documented as of this encounter (statuses as of 04/10/2024) Medications Medication Sig Dispensed Refills Start Date [...] as of this encounter (statuses as of 04/10/2024) Active Problems Problem Noted Date Diagnosed Date Sigmoid diverticulosis 03/28/2024 ILD (interstitial lung disease) 08/22/2023 Benign paroxysmal vertigo of left ear 11/23/2022 Dyslipidemia 05/12/2020 Age-related osteoporosis wit hout current pathological fracture 07/18/2019 Overview: More specific. Mild chronic gastritis 05/11/2018 MAYANK (generalized anxiety disorder) 01/26/2018 CREST syndrome 10/21/2011 Essential tremor 12/07/2002 documented as of this encounter (statuses as of 04/10/2024) Resolved Problems Problem Noted Date Diagnosed Date [...] as of this encounter (statuses as of 04/10/2024) Immunizations Name Administration Dates Next Due COVID-19 mRNA, LNP-s, No Pre serve, 2-Dose Series ([employer]) 12/10/2020,11/19/2020 Pneumococcal Conjugate Vacc, 13 Valent (Prevnar) [...] Progress Notes * Wendy Fisher LPN - 04/10/2024 7:53 AM EDT Images from the original note were not included. 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 Enter order ID here: [id number] Specialty specific documentation: Hematology/Oncology NEW PATIENT - [...] 05/14/2024 9:00 AM EDT Office Visit [facility] [address] [address] Abelardo James MD [address] [place] [address] 06/07/2024 9:30 AM EDT Office Visit Pulmonary Medicine[address] [place] [address] Bruce Villegas MD [address] [place] [address] 06/19/2024 9:40 AM EDT Office Visit Rheumatology [address] [place] [address] Mihir Gomes MD [address] [place] [address] [place] [address] 03/13/2025 7:15 AM EDT Imaging Radiology [address] [place] [address] Scheduled Procedures Name Priority Associated Diagnoses Date/Ti [...] D LEVEL ONCE IN A LIFETIME-USE SMARTSET# [id number] Completed 06/09/2018 Zoster Vaccines Completed 04/14/2020, 11/03, [...] this encounter Medical Devices Implanted Type Area Capsule Filling Machine Operator Device Identifier Shelf Expiration Date Model / Serial / Lot Lens Intraoc 20.0 - [id number] - [id number] Implanted:Qty: 1 on 12/05/2018 by Rick Cantu MD at OR [facility] Left: Eye BAUSCH & LOMB 06/02/2023 [id number] / [id number] / [id number] Lens Intraoc 16.0 - [id number] - [id number] Implanted:Qty: 1 on 12/12/2018 by Rick Cantu MD at OR [facility] Right: Eye BAUSCH & LOMB 04/01/2023 [id number] / [id number] / [id number] documented as of this encounter Care Teams Candy Cooker Helper Relationship Specialty Start Date End Date Abelardo James MD [address] [place] [address] PCP - General Family Medicine 11/09/18 documented as of this encounter
--- OUTSIDE RECORDS SUMMARY | 2024-07-01 19:02 | External Medical Summary | Summary of Care ---
Author Name Unknown Organization [facility] Address [address] [facility] [address] Phone [phone] Care Team Providers Care Soil And Plant Scientist Name Role Phone Abelardo James MD Primary Care Provider +1 [phone] Reason for Visit * Reason Comments Outpatient Testing Encounter Details Date Type Department Care Team (Late st Contact Info) Description 04/04/2024 8:10 AM EDT Laboratory Laboratory, [facility] 132 [facility] [place] [phone] [facility] 132 [place] [address] Anemia Allergies Active Allergy Reactions Criticality Noted Date [...] mRNA, LNP-s, No Pre serve, 2-Dose Series ([employer]) 12/10/2020,11/19/2020 Pneumococcal Conjugate Vacc, 13 Valent (Prevnar) [...] Family Practice [facility] [address] [place] [address] Abelardo James MD [address] [place] [address] 06/07/2024 9:30 AM EDT Office Visit Pulmonary Medicine, [place] [address] [place] [address] Bruce Villegas MD [address] [place] [address] 06/19/2024 9:40 AM EDT Office Visit Rheumatology [address] [place] [address] Mihir Gomes MD [address] [place] [address] [place] [address] 03/13/2025 7:15 AM EDT Imaging Radiology [facility] 1st [facility] 132 [facility] [place] [address] Pending Results Name Type Priority Associated Diagnoses Date /Time CBC WITH WBC DIFFERENTIAL Lab Routine Anemia 04/04/2024 8:12 AM EDT CBC Lab Routine Anemia 04/04/2024 8:12 AM EDT DIFFERENTIAL, AUTOMATED Lab Routine Anemia 04/04/2024 8:12 AM EDT Scheduled Procedures Name Priority Associated [...] D LEVEL ONCE IN A LIFETIME-USE SMARTSET# [id number] Completed 06/09/2018 Zoster Vaccines Completed 04/14/2020, 11/03, [...] this encounter Medical Devices Implanted Type Area Mental Health Social Worker Device Identifier Shelf Expiration Date Model / Serial / Lot Lens Intraoc 20.0 - [id number] - [id number] Implanted:Qty: 1 on 12/05/2018 by Rick Cantu MD at OR [facility] Left: Eye BAUSCH & LOMB 06/02/2023 [id number] / [id number] / [id number] Lens Intraoc 16.0 - [id number] - [id number] Implanted:Qty: 1 on 12/12/2018 by Rick Cantu MD at OR [facility] Right: Eye BAUSCH & LOMB 04/01/2023 [id number] / [id number] / [id number] documented as of this encounter Visit Diagnoses Diagnosis Anemia Anemia, unspecified Screening mammogram for breast cancer documented in this encounter Care Teams Soil And Plant Scientist Relationship Specialty Start Date End Date Abelardo James MD [address] [place] [address] PCP - General Family Medicine 11/09/18 documented as of this encounter
--- OUTSIDE RECORDS SUMMARY | 2024-07-01 19:02 | External Medical Summary | Summary of Care ---
Author Name Unknown Organization [facility] Address [address] [facility] [place] [address] Phone [phone] Care Team Providers Care Featheredger And Reducer Machine Name Role Phone Andressa Manrique MD Primary Care Provider +1 [phone] Reason for Visit * Reason Comments Medication Refill Encounter Details Date Type Department Care Team (Late st Contact Info) Description 04/09/2024 Refill Family Practice [facility] [address] [place] [address] Andressa Manrique MD [address] [place] [address] Allergies Active Allergy Reactions Criticality Noted Date [...] before bedtime. 540 Tablet 02/20/2024 4 Active Primidone 50 MG Oral Tablet (Mysoline) TAKE ONE TABLET BY MOUTH TWO TIMES A DAY 200 Tablet 1 04/10/2024 5 Active Primidone 50 MG Oral Tablet (Mysoline) TAKE ONE TABLET BY MOUTH TWO TIMES A DAY 200 Tablet 1 09/15/2023 4 Discontinue d(Refill) documented as of this [...] mRNA, LNP-s, No Pre serve, 2-Dose Series ([employer]) 12/10/2020,11/19/2020 Pneumococcal Conjugate Vacc, 13 Valent (Prevnar) [...] Miscellaneous Notes * Telephone Encounter - Andressa Manrique MD - 04/10/2024 7:48 AM EDTSigned Prescriptions: Disp Refills Primidone 50 MG Oral Tablet (Mysoline) 200 Ta*1 Sig: TAKE ONE TABLET BY MOUTH TWO TIMES A DAY Authorizing Provider: ANDRESSA MANRIQUE * Telephone Encounter - Unique Lyles LPN - 04/10/2024 7:12 AM EDTPending Prescriptions: Disp Refills Primidone 50 MG Oral Tablet (Mysoline) 200 Ta*1 Sig: TAKE ONE TABLET BY MOUTH TWO TIMES A DAY * Telephone Encounter - Fara Woodward - 04/10/2024 12:09 AM EDTPending Prescriptions: Disp Refills Primidone 50 MG Oral Tablet (Mysoline) 200 Ta*1 Sig: TAKE ONE TABLET BY MOUTH TWO TIMES A DAY documented in this encounter Plan of Treatment Upcoming Encounters Date Type Department Care Team (Late st Contact Info) Description 05/14/2024 9:00 AM EDT Office Visit Family Practice [facility] [address] [place] [address] Andressa Manrique MD [address] [place] [address] 06/07/2024 9:30 AM EDT Office Visit Pulmonary Medicine, [place] [address] [place] [address] Bruce Villegas MD [address] [place] [address] 06/19/2024 9:40 AM EDT Office Visit Rheumatology [address] [address] Mihir Gomes MD [address] [place] [address] [place] [address] 03/13/2025 7:15 AM EDT Imaging Radiology [facility] 1st [facility] [place] [address] Scheduled Procedures Name Priority Associated Diagnoses Date/Ti [...] D LEVEL ONCE IN A LIFETIME-USE SMARTSET# [id number] Completed 06/09/2018 Zoster Vaccines Completed 04/14/2020, 11/03, [...] this encounter Medical Devices Implanted Type Area Buyer Renter Device Identifier Shelf Expiration Date Model / Serial / Lot Lens Intraoc 20.0 - [id number] - [id number] Implanted:Qty: 1 on 12/05/2018 by iRck Cantu MD at OR [facility] Left: Eye BAUSCH & LOMB 06/02/2023 [id number] / [id number] / [id number] Lens Intraoc 16.0 - [id number] - [id number] Implanted:Qty: 1 on 12/12/2018 by Rick Cantu MD at OR [facility] Right: Eye BAUSCH & LOMB 04/01/2023 [id number] / [id number] / [id number] documented as of this encounter Care Teams Featheredger And Reducer Machine Relationship Specialty Start Date End Date Andressa Manrique MD 132 [facility] [place] [address] PCP - General Family Medicine 11/09/18 documented as of this encounter
--- OUTSIDE RECORDS SUMMARY | 2024-07-01 19:02 | External Medical Summary | Summary of Care ---
Author Name Unknown Organization [facility] Address [address] [facility] [place] [address] Phone [phone] Care Team Providers Care Log Hauler Name Role Phone Abelardo James MD Primary Care Provider [phone] [phone] Reason for Visit * Reason Onset Date Comments Referral 04/10/2024 SP 10-Day Encounter Details Date Type Department Care Team (Late st Contact Info) Description 04/10/2024 New Patient Triage (COURT SECURITY OFFICER USE ONLY) Hematology/Oncology [facility] [address] [place] [address] [address] CRNP [address] [place] [address] Referral (SP 10-Day) Allergies Active [...] mRNA, LNP-s, No Pre serve, 2-Dose Series ([employer]) 12/10/2020,11/19/2020 Pneumococcal Conjugate Vacc, 13 Valent (Prevnar) [...] chemotherapeutic drug D64.81 Enter order ID here: [id number] Specialty specific documentation: Hematology/Oncology NEW PATIENT - [...] 05/14/2024 9:00 AM EDT Office Visit Family [facility] [address] [address] Abelardo James MD [address] [place] [address] 06/07/2024 9:30 AM EDT Office Visit Pulmonary Medicine[address] [place] [address] Bruce Villegas MD [address] [place] [address] 06/19/2024 9:40 AM EDT Office Visit Rheumatology [address] [place] [id number] Mihir Gomes MD [address] [place] [address] [place] [address] 03/13/2025 7:15 AM EDT Imaging Radiology [address] [place] [...] D LEVEL ONCE IN A LIFETIME-USE SMARTSET# [id number] Completed 06/09/2018 Zoster Vaccines Completed 04/14/2020, 11/03, [...] this encounter Medical Devices Implanted Type Area Assembler Movement Device Identifier Shelf Expiration Date Model / Serial / Lot Lens Intraoc 20.0 - [id number] - [id number] Implanted:Qty: 1 on 12/05/2018 by Rick Cantu MD at OR [facility] Left: Eye BAUSCH & LOMB 06/02/2023 [id number] / [id number] / [id number] Lens Intraoc 16.0 - [id number] - [id number] Implanted:Qty: 1 on 12/12/2018 by Rick Cantu MD at OR [facility] Right: Eye BAUSCH & LOMB 04/01/2023 [id number] / [id number] / [id number] documented as of this encounter Care Teams Log Hauler Relationship Specialty Start Date End Date Abelardo James MD [address] [place] [address] PCP - General Family Medicine 11/09/18 documented as of this encounter
--- OUTSIDE RECORDS SUMMARY | 2024-07-01 19:02 | External Medical Summary ---
Author Name Unknown Address Unknown Organization K01:LABORATORY C - [address] [place] [address] Laboratory Report Ordering Provider Test Date Status HILARIA CRISOSTOMO 03/28/2024 12:03:20 Final Observation Date Value Abnormality Reference (Units ) Status Haptoglobin 03/28/2024 12:03:20 134 30-200 ( mg/dL) Final Performing Location LAB[facility]ORY [facility] - [address] [place] [address]
--- OUTSIDE RECORDS SUMMARY | 2024-07-01 19:03 | External Medical Summary ---
Author Name Unknown Address Unknown Organization K0G:LABORATORY [place] 57-10 - [address] [place] [address] Laboratory Report Ordering Provider Test Date Status TAMMI CASAS 02/17/2024 08:17:18 Final Observation Date Value Abnormality Reference (Units ) Status WBC, Total 02/17/2024 08:17:18 5.20 4.00-10.8 0 (K/uL) Final RBC 02/17/2024 08:17:18 3.66 3.85-5.15 (M/uL) Final Hemoglobin 02/17/2024 08:17:18 11.4 Below low normal 12 .0-15.3 (g/dL) Final HCT 02/17/2024 08:17:18 34.9 Below low normal 36. 0-45.2 (%) Final MCV 02/17/2024 08:17:18 95.4 81.5-97.5 (fL) Final MCH 02/17/2024 08:17:18 31.1 27.0-34.0 (pg) Final MCHC 02/17/2024 08:17:18 32.7 32.0-36.0 (g/dL) Final RDW 02/17/2024 08:17:18 14.0 11.5-15.5 (%) Final Platelets 02/17/2024 08:17:18 286 140-400 (K /uL) Final MPV 02/17/2024 08:17:18 10.2 6.6-11.1 ( fL) Final Performing Location LABORATORY [facility] [facility] 0 - [address] [place] [address]
--- OUTSIDE RECORDS SUMMARY | 2024-07-01 19:03 | External Medical Summary | Summary of Care ---
Author Name Unknown Organization [facility] Address [address] [facility] [place] [address] Phone [phone] Care Team Providers Care Studio Couch Frame Builder Name Role Phone Abelardo James MD Primary Care Provider [phone] [phone] Reason for Visit * Reason Comments Outpatient Testing Encounter Details Date Type Department Care Team (Late st Contact Info) Description 01/16/2024 8:00 AM EDT Laboratory Laboratory, [facility] 132 [facility] [place] [phone] [facility] 132 [place] [address] ILD (interstitial lung disease) ([facility]) Allergies Active Allergy Reactions Criticality Noted Date Comments Nitrofurantoin Cough 12/15/2023 Omeprazole 12/26/2007 Itchiness and rash documented as of this encounter (statuses as of 01/16/2024) Medications Medication Sig Dispensed Refills Start Date End Date Status Vitamin D3 50 MCG (1999) Oral Capsule Take 1 Capsule by mouth in the morning. 0 Active Centrum Silver 50+Women Oral Tablet Take by mouth daily. 0 Active Vitamin C 500 MG Oral Tablet Chewable Take 1 Tablet by mouth in the morning. 0 Active Cetirizine HCl 10 MG Oral Tablet (ZyrTEC) Take 1 Tablet by mouth in the morning. 0 Active LORazepam 0.5 MG Oral Tablet (Ativan)Indications: [...] TIMES A DAY 200 Tablet 1 09/15/2023 Active Elderberry Immune Complex Oral Tablet Chewable Take by mouth daily. 0 Active Hair Skin & Nails Oral Tablet Take by mouth. 0 Active Mycophenolate Mofetil 500 MG Oral Tablet (CellCept) Take 1 Tablet by mouth in the morning and 1 Tablet before bedtime. 60 Tablet 3 12/15/2023 Active documented as of this encounter (statuses as of 01/16/2024) Active Problems Problem Noted Date Diagnosed Date ILD (interstitial lung disease) 08/22/2023 HERRING (dyspnea on exertion) 08/22/2023 Benign paroxysmal vertigo of left ear 11/23/2022 Dyslipidemia 05/12/2020 Age-related osteoporosis wit hobooker current pathological fracture 07/18/2019 Overview: More specific. Mild chronic gastritis 05/11/2018 MAYANK (generalized anxiety disorder) 01/26/2018 CREST syndrome 10/21/2011 Essential tremor 12/07/2002 documented as of this encounter (statuses as of 01/16/2024) Resolved Problems Problem Noted Date Diagnosed Date [...] as of this encounter (statuses as of 01/16/2024) Immunizations Name Administration Dates Next Due COVID-19 mRNA, LNP-s, No Pre serve, 2-Dose Series ([employer]) 12/10/2020,11/19/2020 Pneumococcal Conjugate Vacc, 13 Valent (Prevnar) [...] in the Last Year Never true 08/01/2019 Sex and Gender Information Value Date Recorded Sex Assigned at Not on file Gender Identity Not on file Sexual Orientation Not on file Job Start Date Occupation Industry Not on file Not on file Not on file documented as of this encounter Plan of Treatment Upcoming Encounters Date Type Department Care Team (Late st Contact Info) Description 03/12/2024 7:15 AM EDT Imaging Radiology [address] 132 [facility] [place] [address] 05/14/2024 9:00 AM EDT Office Visit Family Practice [facility] 132 [facility] [place] [address] Abelardo James MD [address] [facility] [place] [address] 06/19/2024 9:40 AM EDT Office Visit Rheumatology [place] [id number] [address] Mihir Gomes MD [facility] [place] [place] [address] Pending Results Name Type Priority Associated Diagnoses Date /Time CBC Lab Routine ILD (interstitial lung disease) (HCC) 01/16/2024 8:00 AM EDT Scheduled Procedures Name Priority Associated Diagnoses Date/Ti me COLONOSCOPY FLEXIBLE PROXIMA L DIAGNOSTIC Recall Family history of colon cancer Health Maintenance Due Date Last Done Comments Depression Screening 11/12/2020 11/12/2019 COVID-19 Vaccine (3 - Pfizer risk series) 01/07/2021 12/10/2020, 11/19/2020 Mammogram 03/11/2024 03/11/2023, 06/2023, 03/10/2022, Additional history exists DXA Scan 06/27/2025 06/27/2023, 06/04, 06/24/2021, Additional history exists COLONOSCOPY-EVERY 5 YRS AGES 18-100 10/07/2027 10/07/2022, 10/07/2022, 01/28/2017, Additional history exists Lipid Panel 11/23/2028 11/23/2023, 11/04, 05/05/2022, Additional history exists DTaP,Tdap,and Td Vaccines (3 - Td or Tdap) 06/21/2032 06/21/2022, 05/03/2012 Pneumococcal Vaccine: 65+ Years Completed 05/11/2018, 05/09/2017 VITAMIN D LEVEL ONCE IN A LIFETIME-USE SMARTSET# [id number] Completed 06/09/2018 Zoster Vaccines Completed 04/14/2020, 11/03, 09/06/2012 Influenza Vaccine (FLU shot) Completed 11/2022, 07/28/2022, 08/24/2021, Additional history exists GARDASIL-HPV IMMUNIZATION SERIES Aged Out No longer eligible based on patient's age to complete this topic Hepatitis B Aged Out No longer eligi ble based on patient's age to complete this topic MENINGOCOCCAL (MENACTRA/MENVEO) Aged Out No longer eligible based on patient's age to complete this topic documented as of this encounter Medical Devices Implanted Type Area Clearing Supervisor Device Identifier Shelf Expiration Date Model / Serial / Lot Lens Intraoc 20.0 - [id number] - [id number] Implanted:Qty: 1 on 12/05/2018 by Rick Cantu MD at OR [facility] Left: Eye [employer]USCH [employer] LOMB 06/02/2023 [id number] / [id number] / [id number] Lens Intraoc 16.0 - [id number] - [id number] Implanted:Qty: 1 on 12/12/2018 by Rick Cantu MD at OR [facility] Right: Eye BAUSCH & LOMB 04/01/2023 [id number] / [id number] / [id number] documented as of this encounter Visit Diagnoses Diagnosis ILD (interstitial lung disease) (HCC) Postinflammatory pulmonary fibrosis documented in this encounter Care Teams Studio Couch Frame Builder Relationship Specialty Start Date End Date Abelardo James MD [address] [facility] [place] [address] PCP - General Family Medicine 11/09/18 documented as of this encounter
--- OUTSIDE RECORDS SUMMARY | 2024-07-01 19:03 | External Medical Summary ---
Author Name Unknown Address Unknown Organization [facility] [address] [place] [address] Laboratory Report Ordering Provider Test Date Status TAMMI CASAS 01/16/2024 08:00:07 Final Observation Date Value Abnormality Reference (Units ) Status WBC, Total 01/16/2024 08:00:07 5.48 4.00-10.8 0 (K/uL) Final RBC 01/16/2024 08:00:07 3.77 3.85-5.15 (M/uL) Final Hemoglobin 01/16/2024 08:00:07 11.8 Below low normal 12 .0-15.3 (g/dL) Final HCT 01/16/2024 08:00:07 36.2 36.0-45.2 (%) Final MCV 01/16/2024 08:00:07 96.0 81.5-97.5 (fL) Final MCH 01/16/2024 08:00:07 31.3 27.0-34.0 (pg) Final MCHC 01/16/2024 08:00:07 32.6 32.0-36.0 (g/dL) Final RDW 01/16/2024 08:00:07 14.1 11.5-15.5 (%) Final Platelets 01/16/2024 08:00:07 283 140-400 (K /uL) Final MPV 01/16/2024 08:00:07 10.0 6.6-11.1 ( fL) Final Performing Location [facility] [address] [place] [address]
--- OUTSIDE RECORDS SUMMARY | 2024-07-01 19:03 | External Medical Summary | Summary of Care ---
Author Name Unknown Organization [facility] Address [address] [place] [address] Phone [phone] Care Team Providers Care Gear Repair Supervisor Name Role Phone Abelardo James MD Primary Care Provider [phone] Reason for Visit * Reason Onset Date Comments Medication Refill 02/17/2024 Encounter Details Date Type Department Care Team (Late st Contact Info) Description 02/17/2024 Refill Pulmonary Medicine, [place] [address] [place], [place] [id number] Cammie Cadena CRNP [address] [place], [place] [id number] Allergies Active Allergy Reactions Criticality Noted Date Comments Nitrofurantoin Cough 12/15/2023 Omeprazole 12/26/2007 Itchiness and rash documented as of this encounter (statuses as of 02/20/2024) Medications Medication Sig Dispensed Refills Start Date [...] 200 Tablet 1 3 09/14/20 24 Active Elderberry Immune Complex Oral Tablet Chewable Take by mouth daily. Active Hair Skin & Nails Oral Tablet Take by mouth. Active Mycophenolate Mofetil 500 MG Oral Tablet (CellCept) Take 3 Tablets by mouth in the morning and 3 Tablets before bedtime. 540 Tablet 4 05/20/20 24 Active Mycophenolate Mofetil 500 MG Oral Tablet (CellCept) Take 2 Tablets by mouth in the morning and 2 Tablets before bedtime. 120 Tablet 1 4 02/17/20 24 Discontinued documented as of this encounter (statuses as of 02/20/2024) Active Problems Problem Noted Date Diagnosed Date ILD (interstitial lung disease) 08/22/2023 HERRING (dyspnea on exertion) 08/22/2023 Benign paroxysmal vertigo of left ear 11/23/2022 Dyslipidemia 05/12/2020 Age-related osteoporosis geoffrey martin current pathological fracture 07/18/2019 Overview: More specific. Mild chronic gastritis 05/11/2018 MAYANK (generalized anxiety disorder) 01/26/2018 CREST syndrome 10/21/2011 Essential tremor 12/07/2002 documented as of this encounter (statuses as of 02/20/2024) Resolved Problems Problem Noted Date Diagnosed Date [...] as of this encounter (statuses as of 02/20/2024) Immunizations Name Administration Dates Next Due COVID-19 [...] encounter Miscellaneous Notes * Telephone Encounter - Cammie Cadena CRNP - 02/20/2024 9:41 AM EDTSigned Prescriptions: Disp Refills Mycophenolate Mofetil 500 MG Oral Tablet (*540 Ta*0 Sig: Take 3 Tablets by mouth in the morning and 3 Tablets before bedtime.Authorizing Provider: CAMMIE CADENA * Telephone Encounter - Sue Bautista RN - 02/17/2024 3:39 PM EDT Pending Prescriptions: Disp Refills Mycophenolate Mofetil 500 MG Oral Tablet *360 Ta*0 Sig: Take 2 Tablets by mouth in the morning and 2 Tablets before bedtime. Most Recent Office Visit Date:12/15/2023 (in office), 12/05/2023 (telemedicine) Next Scheduled Office Visit Date:03/05/2024 If no future appointments scheduled, and last appointment is greater than a year ago, please schedule patient for a follow-up appointment Last date the medication was ordered: 01/18/2024 Pharmacy: [id number] [address] [facility] Please review and sign at your discretion. Requesting 90 day supply documented in this encounter Plan of Treatment Upcoming Encounters Date Type Department Care Team (Late st Contact Info) Description 03/05/2024 9:00 AM EDT Telemedicine Pulmonary Medicine, [address] [address] Erick Blanchard MD [facility] [place] [address] 03/12/2024 7:15 AM EDT Imaging Radiology [address] 132 [facility] [place] [address] 05/14/2024 9:00 AM EDT Office Visit Family Practice [facility] 132 [facility] [place] [address] Abelardo James MD 132 [facility] [place] [address] 06/07/2024 9:30 AM EDT Office Visit Pulmonary Medicine, [place] [address] [place] [address] Bruce Villegas MD [facility] [place] [address] 06/19/2024 9:40 AM EDT Office Visit Rheumatology [address] [address] Miihr Gomes MD [address] [place] [address] Scheduled Procedures Name Priority Associated Diagnoses Date/Ti [...] D LEVEL ONCE IN A LIFETIME-USE SMARTSET# [id number] Completed 06/09/2018 Zoster Vaccines Completed 04/14/2020, 11/03, [...] this encounter Medical Devices Implanted Type Area Modern And Contemporary Art Curator Device Identifier Shelf Expiration Date Model / Serial / Lot Lens Intraoc 20.0 - [id number] - [id number] Implanted:Qty: 1 on 12/05/2018 by Rick Cantu MD at OR [facility] Left: Eye BAUSCH & LOMB 06/02/2023 [id number] / [id number] / [id number] Lens Intraoc 16.0 - [id number] - [id number] Implanted:Qty: 1 on 12/12/2018 by Rick Cantu MD at OR [facility] Right: Eye BAUSCH & LOMB 04/01/2023 [id number] / [id number] / [id number] documented as of this encounter Care Teams Gear Repair Supervisor Relationship Specialty Start Date End Date Abelardo James MD [address] [place] [address] PCP - General Family Medicine 11/09/18 documented as of this encounter
--- OUTSIDE RECORDS SUMMARY | 2024-07-01 19:03 | External Medical Summary | Summary of Care ---
Author Name Unknown Organization [facility] Address [address] [place] [address] Phone [phone] Care Team Providers Care Garbage Truck Driver Name Role Phone Abelardo James MD Primary Care Provider [phone] Reason for Visit * Reason Onset Date Comments Test Results 01/18/2024 Encounter Details Date Type Department Care Team (Late st Contact Info) Description 01/18/2024 Telephone Pulmonary Medicine, [place] [address] [place] [address] Cammie Cunningham CRNP [address] [place] [address] Test Results (/) Allergies Active Allergy Reactions Criticality Noted Date Comments Nitrofurantoin Cough 12/15/2023 Omeprazole 12/26/2007 Itchiness and rash documented as of this encounter (statuses as of 01/18/2024) Medications Medication Sig Dispensed Refills Start Date [...] 0 Active LORazepam 0.5 MG Oral Tablet (Ativan)Indications [...] TIMES A DAY 200 Tablet 1 09/15/2023 09/14/20 24 Active Elderberry Immune Complex Oral Tablet Chewable Take by mouth daily. 0 Active Hair Skin & Nails Oral Tablet Take by mouth. 0 Active Mycophenolate Mofetil 500 MG Oral Tablet (CellCept) Take 2 Tablets by mouth in the morning and 2 Tablets before bedtime. 120 Tablet 1 01/18/2024 Active Mycophenolate Mofetil 500 MG Oral Tablet (CellCept) Take 1 Tablet by mouth in the morning and 1 Tablet before bedtime. 60 Tablet 3 12/15/2023 01/18/20 24 Discontinu ed(Refill) documented as of this encounter (statuses as of 01/18/2024) Active Problems Problem Noted Date Diagnosed Date ILD (interstitial lung disease) 08/22/2023 HERRING (dyspnea on exertion) 08/22/2023 Benign paroxysmal vertigo of left ear 11/23/2022 Dyslipidemia 05/12/2020 Age-related osteoporosis wit hout current pathological fracture 07/18/2019 Overview: More specific. Mild chronic gastritis 05/11/2018 MAYANK (generalized anxiety disorder) 01/26/2018 CREST syndrome 10/21/2011 Essential tremor 12/07/2002 documented as of this encounter (statuses as of 01/18/2024) Resolved Problems Problem Noted Date Diagnosed Date [...] as of this encounter (statuses as of 01/18/2024) Immunizations Name Administration Dates Next Due COVID-19 [...] Description 03/12/2024 7:15 AM EDT Imaging Radiology [address] [place] [address] 05/14/2024 9:00 AM EDT Office Visit Family Practice [facility] [address] [place] [address] Abelardo James MD [address] [place] [address] 06/19/2024 9:40 AM EDT Office Visit Rheumatology [place] [phone] [place] [address] Mihir Gomes MD [facility] [employer] [place] [address] Scheduled Procedures Name Priority Associated Diagnoses Date/Ti [...] D LEVEL ONCE IN A LIFETIME-USE SMARTSET# [id number] Completed 06/09/2018 Zoster Vaccines Completed 04/14/2020, 11/03, [...] this encounter Medical Devices Implanted Type Area Personal Lines Advisor Device Identifier Shelf Expiration Date Model / Serial / Lot Lens Intraoc 20.0 - [id number] - [id number] Implanted:Qty: 1 on 12/05/2018 by Rick Cantu MD at OR [facility] Left: Eye BAUSCH [employer] LOMB 06/02/2023 [id number] / [id number] / [id number] Lens Intraoc 16.0 - [id number] - [id number] Implanted:Qty: 1 on 12/12/2018 by Rick Cantu MD at OR [facility] Right: Eye BAUSCH [employer] LOMB 04/01/2023 [id number] / [id number] / [id number] documented as of this encounter Care Teams Garbage Truck Driver Relationship Specialty Start Date End Date Abelardo James MD 132 [facility] [place] [address] PCP - General Family Medicine 11/09/18 documented as of this encounter
--- OUTSIDE RECORDS SUMMARY | 2024-07-01 19:03 | External Medical Summary | Summary of Care ---
Author Name Unknown Organization [facility] Address [address] [facility] [place] [address] Phone [phone] Care Team Providers Care Binding Machine Operator Name Role Phone Abelardo James MD Primary Care Provider [phone] Reason for Visit * Reason Comments Outpatient Testing Encounter Details Date Type Department Care Team (Late st Contact Info) Description 02/17/2024 8:50 AM EDT Laboratory Laboratory, [facility] 132 [facility] [place] [phone] [facility] [address] [place] [address] ILD (interstitial lung disease) ([facility]) Allergies Active Allergy Reactions Criticality Noted Date Comments Nitrofurantoin Cough 12/15/2023 Omeprazole 12/26/2007 Itchiness and rash documented as of this encounter (statuses as of 02/17/2024) Medications Medication Sig Dispensed Refills Start Date [...] before bedtime. 120 Tablet 1 01/18/2024 Active documented as of this encounter (statuses as of 02/17/2024) Active Problems Problem Noted Date Diagnosed Date ILD (interstitial lung disease) 08/22/2023 HERRING (dyspnea on exertion) 08/22/2023 Benign paroxysmal vertigo of left ear 11/23/2022 Dyslipidemia 05/12/2020 Age-related osteoporosis wit hobooker current pathological fracture 07/18/2019 Overview: More specific. Mild chronic gastritis 05/11/2018 MAYANK (generalized anxiety disorder) 01/26/2018 CREST syndrome 10/21/2011 Essential tremor 12/07/2002 documented as of this encounter (statuses as of 02/17/2024) Resolved Problems Problem Noted Date Diagnosed Date [...] as of this encounter (statuses as of 02/17/2024) Immunizations Name Administration Dates Next Due COVID-19 mRNA, LNP-s, No Pre serve, 2-Dose Series ([employer]) 12/10/2020,11/19/2020 Pneumococcal Conjugate Vacc, 13 Valent (Prevnar) [...] Description 03/05/2024 9:00 AM EDT Telemedicine Pulmonary Medicine[address] [address] Erick Blanchard MD [address] [place] [address] 03/12/2024 7:15 AM EDT Imaging Radiology [facility] [address] [place] [address] 05/14/2024 9:00 AM EDT Office Visit Family Practice [facility] [address] [place] [address] Abelardo [facility] MD 132 [facility] [place] [address] 06/07/2024 9:30 AM EDT Office [place] [address] [place] [address] Bruce Villegas MD [address] [place] [address] 06/19/2024 9:40 AM EDT Office Visit Rheumatology [place] [address] [employer] [place] [address] Mihir Gomes MD [address] [facility] [place] [address] Pending Results Name Type Priority Associated Diagnoses Date /Time CBC Lab Routine ILD (interstitial lung disease) (HCC) 02/17/2024 8:17 AM EDT Scheduled Procedures Name Priority Associated Diagnoses Date/Ti md COLONOSCOPY FLEXIBLE PROXIMA L DIAGNOSTIC Recall Family history of colon cancer Health Maintenance Due Date Last Done Comments Cologuard 1996 Fecal Occult Blood Test 1996 Sigmoidoscopy 1996 Depression Screening 11/12/2020 11/12/2019 COVID-19 Vaccine (3 - Pfizer risk series) 01/07/2021 12/10/2020, 11/19/2020 Mammogram 03/11/2024 03/11/2023, 0606/2023, 03/10/2022, Additional history exists DXA Scan 06/27/2025 06/27/2023, 06/04, 06/24/2021, Additional history exists Colonoscopy 10/07/2027 10/07/2022, 01/2023, 01/28/2017, Additional history exists Colorectal Cancer Screening 10/07/2027 Lipid Panel 11/23/2028 11/23/2023, 11/04, 05/05/2022, Additional history exists DTaP,Tdap,and Td Vaccines (3 - Td or Tdap) 06/21/2032 06/21/2022, 05/03/2012 Pneumococcal Vaccine: 65+ Years Completed 05/11/2018, 05/09/2017 VITAMIN D LEVEL ONCE IN A LIFETIME-USE SMARTSET# [id number] Completed 06/09/2018 Zoster Vaccines Completed 04/14/2020, 11/03, [...] this encounter Medical Devices Implanted Type Area Oil House Attendant Device Identifier Shelf Expiration Date Model / Serial / Lot Lens Intraoc 20.0 - [id number] - [id number] Implanted:Qty: 1 on 12/05/2018 by Rick Cantu MD at OR [facility] Left: Eye BAUSCH & LOMB 06/02/2023 [id number] / [id number] / [id number] Lens Intraoc 16.0 - [id number] - [id number] Implanted:Qty: 1 on 12/12/2018 by Rick Cantu MD at OR [facility] Right: Eye BAUSCH & LOMB 04/01/2023 [id number] / [id number] / [id number] documented as of this encounter Visit Diagnoses Diagnosis ILD (interstitial lung disease) (HCC) Postinflammatory pulmonary fibrosis documented in this encounter Care Teams Binding Machine Operator Relationship Specialty Start Date End Date Abelardo James MD 132 [facility] [place] [address] PCP - General Family Medicine 11/09/18 documented as of this encounter
--- NOTE | 2024-07-01 19:13 | Emergency Department Note ---
Impression & Plan Acute hypokalemia ADMIT ED Provider Note HPI: History obtained from patient. The patient is a 73-year-old female with history of crest syndrome, presents the emergency department with a chief complaint of shortness of breath, nausea, and diminished appetite. Patient states that she has had the symptoms over the past several days. Patient states that for the past month she has had symptoms of cough related to a COVID-19 infection. Patient states that she had an x-ray performed as an outpatient yesterday that showed evidence of bilateral groundglass opacities and she was therefore placed on Augmentin and doxycycline by her outpatient provider. Patient states that she developed some nausea today and had 1 episode of vomiting after taking these medicines. Patient denies any abdominal pain. Patient states that she has a diminished appetite and does not feel that she can eat or drink anything secondary to nausea. On arrival here to the ED the patient is mildly tachycardic, she is saturating well on room air, patient is afebrile on arrival. ROS: - Per HPI Differential Diagnosis: Pneumonia, sepsis, COVID infection, pulmonary edema, acute coronary syndrome, pulmonary embolism, adverse reaction to medications, amongst other potential pathologies. *Outpatient medications and allergy history reviewed. PE: General: Alert HEENT: Normocephalic, trachea midline Eyes: Extraocular eye movement is intact, no scleral erythema Pulmonary: Clear to auscultation bilaterally, no wheezing Cardio: Regular rate and rhythm GI: Abdomen is soft to palpation, nontender, nondistended : No suprapubic tenderness MSK: No evidence of trauma or malformation of the extremities, no edema Skin: No evidence of rash Neuro: Alert, no focal deficits Psychiatric: Cooperative INDEPENDENT INTERPRETATIONS: hospital monitor: (As interpreted by myself): - An order was placed for continuous cardiac monitoring - Patient was noted to be in sinus rhythm with a rate of 105 EKG: (As interpreted by myself): Rate: 109 Rhythm: Sinus tachycardia Intervals: Within normal limits ST changes: No ST elevation Time: 0 Chest x-ray: (As interpreted by myself): Bilateral lower lobe infiltrates Interventions provided in ED: -IV fluid bolus, IV cefepime, potassium chloride Medical Decision Making: IV was established and lab work obtained, patient was placed on quality assurance monitor chassis. Lab work shows no leukocytosis, hemoglobin is 8.9 (stable in comparison to lab work obtained yesterday, patient notes history of iron deficiency anemia), platelet count is normal, CMP shows hypokalemia 2.5, no evidence of acute kidney injury, troponin is negative, BNP is within normal limits, procalcitonin is low suggesting against systemic bacterial infection/sepsis. Urinalysis does not show any evidence of infection. Viral panel testing is positive for COVID-19. Chest x-ray is suggestive of bilateral lower lobe pneumonia. Patient was ordered oral potassium repletion. On my reassessment the patient remains otherwise stable. She states that she overall does not feel well for discharge, given her electrolyte abnormalities with findings concerning for pneumonia on chest x-ray, I did discuss the patient's presentation with the hospitalist for [facility], Dr. Chapman, and the patient was placed for admission in stable condition. Patient and her at the bedside are in agreement to this plan. Blood culture was ordered and the patient was given a dose of IV cefepime here in the ED prior to admission. Consultants/Discussions held with other healthcare providers: -Hospitalist, Dr. Chapman Disposition discussion held by myself with: -Patient and patient's at the bedside Diagnosis: 1. Bilateral pneumonia, acute 2. COVID-19 infection, acute 3. Dyspnea, acute 4. Hypokalemia, acute 5. Anemia, chronic, stable Disposition: Admission Jairon Covarrubias DO Emergency Medicine Past Med/Surg History Problem List (Updated 07/01/24 @ 23:06 by Jairon Covarrubias DO) Acute hypokalemia (Acute) Social History Smoking Status: Never smoker Hx Alcohol Use: No Hx Substance Use: No Preferred Language: Amharic Communication Ability: Effective Chicken Tender Required: No Beliefs That Will Affect Care: None Current Living Situation: Spouse Other Information That Helps Us Care for You: No Feels Safe at Home: Yes Safety Concerns: Feels Safe At This Time Assistive Devices: None Allergies Allergies Allergy/AdvReac Type Severity Reaction Status Date / Time omeprazole Allergy Intermediate Hives Verified 07/01/24 20:32 nitrofurantoin Allergy Unknown cough and Verified 07/01/24 20:37 short of breath Home Meds Home Medications Medication Instructions Recorded Confirmed albuterol sulfate 90 mcg/actuation 2 puff inhalation Q6 PRN coughing 07/01/24 07/01/24 aerosol inhaler amoxicillin 875 mg-potassium 1 tab PO BID 07/01/24 07/01/24 clavulanate 125 mg tablet colchicine 0.6 mg tablet 0.6 mg PO HS 07/01/24 07/01/24 doxycycline hyclate 100 mg capsule 100 mg PO BID 07/01/24 07/01/24 esomeprazole magnesium 40 mg 40 mg PO QAM 07/01/24 07/01/24 capsule,delayed release hydrocodone-homatropine 5 mg-1.5 5 ml PO Q6 PRN Cough 07/01/24 07/01/24 mg/5 mL oral syrup mycophenolate mofetil 500 mg tablet 1,500 mg PO AMHS 07/01/24 07/01/24 nifedipine 30 mg tablet,extended 30 mg PO QAM 07/01/24 07/01/24 release 24 hr primidone 50 mg tablet 50 mg PO AMHS 07/01/24 07/01/24 Results & Data (ED) Vital Signs Vital Signs - 24 hr 07/01/24 18:58 07/01/24 19:09 07/01/24 19:10 Temperature 37.5 C Temperature Source Oral Pulse Rate 117 H 110 H Pulse Rate [Apical] 110 H Respiratory Rate 20 22 Respiratory Effort / Characteristics Non-Labored Spontaneous Respiratory Depth Normal Respiratory Pattern Regular Blood Pressure 135/77 Blood Pressure [Left Arm] 140/75 Blood Pressure Mean 96 Blood Pressure Mean [Left Arm] 96 Pulse Oximetry 92 95 95 Oxygen Delivery Method Room Air Room Air Room Air Sepsis Recent Fever Within 48 Hours No Sepsis New/Unexplained Change in Mental Status N/A Sepsis Action Taken by Nursing No Action Required 07/01/24 19:12 07/01/24 21:07 07/01/24 21:57 Temperature Temperature Source Pulse Rate 111 H Pulse Rate [Apical] 91 H 107 H Respiratory Rate 20 18 Respiratory Effort / Characteristics Respiratory Depth Respiratory Pattern Blood Pressure Blood Pressure [Left Arm] 141/80 H 131/76 Blood Pressure Mean Blood Pressure Mean [Left Arm] 100 94 Pulse Oximetry 95 Oxygen Delivery Method Room Air Sepsis Recent Fever Within 48 Hours Sepsis New/Unexplained Change in Mental Status Sepsis Action Taken by Nursing 07/01/24 22:52 Temperature Temperature Source Pulse Rate Pulse Rate [Apical] 82 Respiratory Rate 20 Respiratory Effort / Characteristics Respiratory Depth Respiratory Pattern Blood Pressure Blood Pressure [Left Arm] 134/81 Blood Pressure Mean Blood Pressure Mean [Left Arm] 98 Pulse Oximetry 94 Oxygen Delivery Method Sepsis Recent Fever Within 48 Hours Sepsis New/Unexplained Change in Mental Status Sepsis Action Taken by Nursing Laboratory Data 07/01/24 19:15 07/01/24 19:15 Lab Results 07/01/24 07/01/24 07/01/24 Range/Units 19:15 21:03 21:31 WBC 5.88 (4.8-10.8) K/ul RBC 2.95 L (4.20-5.40) M/uL Hgb 8.9 L (12.0-16.0) g/dl Hct 27.0 L (37.0-47.0) % MCV 91.5 (80.0-100.0) fL MCH 30.2 (25.0-34.0) pg MCHC 33.0 (32.0-36.0) g/dL RDW Std Deviation 46.9 H (36.4-46.3) fL RDW Coeff of Juanita 14.2 (11.5-14.5) % Plt Count 297 (130-400) K/uL MPV 10.2 (9.4-12.4) fL Immature Gran % (Auto) 0.5 % Neut % (Auto) 83.2 % Lymph % (Auto) 5.6 % Waldo % (Auto) 9.7 % Eos % (Auto) 0.7 % Baso % (Auto) 0.3 % Neut # (Auto) 4.89 (1.40-6.50) K/uL Lymph # (Auto) 0.33 L (1.20-3.40) K/uL Waldo # (Auto) 0.57 (0.11-0.59) K/uL Eos # (Auto) 0.04 (0.00-0.50) K/uL Baso # (Auto) 0.02 (0.00-0.20) K/uL Immature Gran # (Auto) 0.03 (0.01-0.20) K/uL PT 11.4 (9.0-12.0) Seconds INR 1.1 (0.9-1.1) Sodium 134 L (136-145) mmol/L Potassium 2.5 L* (3.5-5.1) mmol/L Chloride 98 (98-107) mmol/L Carbon Dioxide 26 (21-32) mmol/L Anion Gap 10 (3-11) BUN 8 (6-23) mg/dl Creatinine 0.57 L (0.6-1.2) mg/dl Est Cr Clr Drug Dosing 79.0 ml/min Est GFR ( Amer) 107.3 ml/min Est GFR (Non-Af Amer) 92.6 ml/min BUN/Creatinine Ratio 14.0 (10-20) Glucose 117 H (70-99(Fasting)) mg/dl Estimat Average Glucose 134 mg/dl Hemoglobin A1c 6.3 H (4.5-5.6) % Calcium 7.2 L (8.6-10.3) mg/dl Magnesium 0.7 L* (1.7-2.4) mg/dl Total Bilirubin 0.3 (0.2-1.0) mg/dl AST 19 (13-39) U/L ALT 14 (7-52) U/L Alkaline Phosphatase 59 (34-104) U/L Troponin I High Sens 10.5 (0-14) pg/ml B-Natriuretic Peptide 56 (0-100) pg/ml Total Protein 6.4 (6.0-8.3) gm/dl Albumin 3.5 (3.4-5.0) gm/dl Globulin 2.9 (2.5-4.0) gm/dl Albumin/Globulin Ratio 1.2 (0.9-2) Lipase 10 L (11-82) U/L Procalcitonin < 0.02 (0-0.5) ng/ml Urine Color Yellow Urine Appearance Clear (Clear) Urine pH 7.0 (4.5-7.5) Ur Specific [place] 1.007 (1.000-1.030) Urine Protein Negative (Negative) Urine Glucose (UA) Negative (Negative) Urine Ketones Negative (Negative) Urine Blood Negative (Negative) Urine Nitrite Negative (Negative) Urine Bilirubin Negative (Negative) Urine Urobilinogen Negative (Negative) Ur Leukocyte Esterase Negative (Negative) Adenovirus (PCR) Not Detected (NotDetected) B. pertussis DNA (PCR) Not Detected (NotDetected) B.parapertussis DNA PCR Not Detected (NotDetected) C. pneumoniae DNA (PCR) Not Detected (NotDetected) Coronavirus OC43 (PCR) Not Detected (NotDetected) Coronavirus HKU1 (PCR) Not Detected (NotDetected) Coronavirus 229E (PCR) Not Detected (NotDetected) SARS-CoV-2 (PCR) DETECTED A (NotDetected) Coronavirus NL63 (PCR) Not Detected (NotDetected) Human Metapneumovir PCR Not Detected (NotDetected) Influenza Type A (PCR) Not Detected (NotDetected) Influenza Type B (PCR) Not Detected (NotDetected) M. pneumoniae (PCR) Not Detected (NotDetected) Parainfluenza 1 (PCR) Not Detected (NotDetected) Parainfluenza 2 (PCR) Not Detected (NotDetected) Parainfluenza 3 (PCR) Not Detected (NotDetected) Parainfluenza 4 (PCR) Not Detected (NotDetected) RSV (PCR) Not Detected (NotDetected) Entero/Rhino (PCR) Not Detected (NotDetected) Administered Medications Doxycycline Hyclate 100 mg/ (Dextrose) 100 mls @ 50 mls/hr IV NOW STA Stop: 07/01/24 23:19 Last Admin: 07/01/24 22:15 Dose: 50 mls/hr Documented By: EYAL Discontinued Medications Sodium Chloride (Nss) 500 mls @ 999 mls/hr IV .Q31M ONE Stop: 07/01/24 19:40 Last Infusion: 07/01/24 19:59 Dose: Infused Documented By: Admin: 07/01/24 19:17 Dose: 999 mls/hr Documented By: EYAL Cefepime HCl 2,000 mg/ Syringe 20 mls @ 5 mls/min IV NOW STA; Protocol Stop: 07/01/24 20:20 Last Admin: 07/01/24 20:50 Dose: 5 mls/min Documented By: EYAL Calcium Gluconate () 1,000 mg in 60 mls @ 240 mls/hr IV Q15M KATIE Stop: 07/01/24 21:14 Last Infusion: 07/01/24 22:36 Dose: Infused Documented By: Admin: 07/01/24 21:57 Dose: 240 mls/hr Documented By: Infusion: 07/01/24 21:29 Dose: Infused Documented By: Admin: 07/01/24 21:14 Dose: 240 mls/hr Documented By: Infusion: 07/01/24 21:14 Dose: Infused Documented By: Admin: 07/01/24 20:59 Dose: 240 mls/hr Documented By: EYAL Famotidine (Pepcid 20mg Iv Push) 20 mg in 5 mls @ 2.5 mls/min IV NOW STA Stop: 07/01/24 21:21 Last Admin: 07/01/24 22:15 Dose: 2.5 mls/min Documented By: EYAL Ampicillin Sodium/Sulbactam Sodium (Unasyn) 3,000 mg in 100 mls @ 200 mls/hr IV NOW STA Stop: 07/01/24 21:57 Last Infusion: 07/01/24 22:57 Dose: Infused Documented By: Admin: 07/01/24 22:20 Dose: 200 mls/hr Documented By: EYAL Ioversol (Optiray 320 125ml) 119 ml IV ONCE ONE Stop: 07/01/24 21:38 Last Admin: 07/01/24 21:37 Dose: 119 ml Documented By: JOLIE Ondansetron HCl (Ondansetron Inj 2 Mg/Ml 2 Ml Vial) 4 mg IV NOW STA Stop: 07/01/24 19:11 Last Admin: 07/01/24 19:15 Dose: 4 mg Documented By: EYAL Potassium Chloride (Potassium Chloride Pwd 20 Meq Pack) 40 meq PO NOW STA Stop: 07/01/24 20:07 Last Admin: 07/01/24 20:50 Dose: 40 meq Documented By: EYAL Imaging Data Radiologist's Impression: Chest X-Ray 07/01/24 19:10 SINGLE VIEW CHEST CLINICAL HISTORY: Dyspnea. Covid FINDINGS: An AP, portable, upright chest radiograph is compared to chest x-ray and chest CT dated 12/14/2007. The heart is enlarged noting atherosclerotic calcification of the thoracic aorta. There is pulmonary vascular congestion. There is mild bibasilar airspace consolidation, greater on the left. No large pleural effusion or pneumothorax is seen. The skeletal structures are osteopenic. The bony thorax is grossly intact. IMPRESSION: 1. Cardiomegaly with mild pulmonary vascular congestion. 2. Airspace consolidation is seen at both lung bases, left greater than right. The appearance favors pneumonia/aspiration pneumonitis. Clinical correlation will be required and radiographic follow-up to resolution is recommended. ACT 112: Negative or not required by law. Electronically signed by: Lei Mo M.D. 07/01/2024 7:27 PM Discharge Plan Visit Data Chief Complaint: Illness Stated Complaint: POS FOR COVID, NAUSEA, SOB, FATIGUE, HAS ILD ED Provider: Jairon Covarrubias Discharge Problem: Acute hypokalemia Discharge Instructions Interventions: ED Discharge Assessment Last Done: 07/01/24 22:56 Forms Stand Alone Forms: [facility] Prescriptions Prescriptions: No Action nifedipine 30 mg tablet extended release 24hr 30 mg PO QAM primidone 50 mg tablet 50 mg PO AMHS esomeprazole magnesium 40 mg capsule,delayed release(DR/EC) 40 mg PO QAM albuterol sulfate 90 mcg/actuation HFA aerosol inhaler 2 puff INHALATION Q6 PRN (Reason: coughing) colchicine 0.6 mg tablet 0.6 mg PO HS mycophenolate mofetil 500 mg tablet 1,500 mg PO AMHS doxycycline hyclate 100 mg capsule 100 mg PO BID Rx Instructions: take for 7 days...ordered 06/30/24 amoxicillin-pot clavulanate 875-125 mg tablet 1 tab PO BID Rx Instructions: 06/30/24 take for 7 days hydrocodone-homatropine 5-1.5 mg/5 mL syrup 5 ml PO Q6 PRN (Reason: Cough) Rx Instructions: pt reports not taking/ makes her nauseated Referrals Referrals: Abelardo James MD [Primary Care Provider] -
[2024-07-01] MEDS: ONDANSETRON INJ 2 MG/ML 2 ML VIAL IV STA (19:15)
[2024-07-01] MEDS: SODIUM CHLORIDE 0.9% 500 ML IV ONE (19:17)
--- NOTE | 2024-07-01 19:28 | XRay Report ---
SINGLE VIEW CHEST CLINICAL HISTORY: Dyspnea. Covid FINDINGS: An AP, portable, upright chest radiograph is compared to chest x-ray and chest CT dated 12/01. The heart is enlarged noting atherosclerotic calcification of the thoracic aorta. There is pu lmonary vascular congestion. There is mild bibasilar airspace consolidation, greater on the left. No large pleural effusion or pneumothorax is seen. The skeletal structures are osteopenic. The bony thor ax is grossly intact. IMPRESSION: 1. Cardiomegaly with mild pulmonary vascular congestion. 2. Airspace consolidation is seen at both lung bases, left greater than right. The appearance favors pneumonia/aspiration pneumonitis. Clinical correlation will be required and radiographic follow-up to resolution is recommended. ACT 112: Negative or not required by law. Electronically signed by: Lei Mo M.D. 07/01/2024 7:27 PM
[2024-07-01 19:35] LABS: Basophils # (auto) 0.02 K/uL (0.00-0.20); Basophils % (auto) 0.3 %; Eosinophils # (auto) 0.04 K/uL (0.00-0.50); Eosinophils % (auto) 0.7 %; Hemoglobin 8.9 g/dl (12.0-16.0); Immature Granulocytes # (auto) 0.03 K/uL (0.01-0.20); Immature Granulocytes % (auto) 0.5 %; Lymphocytes # (auto) 0.33 K/uL (1.20-3.40); Lymphocytes % (auto) 5.6 %; Mean Corpuscular Hemoglobin 30.2 pg (25.0-34.0); Mean Corpuscular Volume 91.5 fL (80.0-100.0); Mean Platelet Volume 10.2 fL (9.4-12.4); Monocytes # (auto) 0.57 K/uL (0.11-0.59); Monocytes % (auto) 9.7 %; Neutrophils # (auto) 4.89 K/uL (1.40-6.50); Neutrophils % (auto) 83.2 %; Platelet Count 297 K/uL (130-400); RDW Coefficient of Variation 14.2 % (11.5-14.5); RDW Standard Deviation 46.9 fL (36.4-46.3); Red Blood Count 2.95 M/uL (4.20-5.40); White Blood Count 5.88 K/ul (4.8-10.8)
[2024-07-01 19:59] LABS: Troponin I High Sensitivity 10.5 pg/ml (0-14)
[2024-07-01 20:01] LABS: Albumin Globulin Ratio 1.2 (0.9-2); Albumin Level 3.5 gm/dl (3.4-5.0); Bilirubin,Total 0.3 mg/dl (0.2-1.0); Calcium 7.2 mg/dl (8.6-10.3); Est GFR (African American) 107.3 ml/min; Est GFR (Non-African American) 92.6 ml/min; Globulin 2.9 gm/dl (2.5-4.0); Potassium 2.5 mmol/L (3.5-5.1); Total Protein 6.4 gm/dl (6.0-8.3)
[2024-07-01 20:02] LABS: INR 1.1 (0.9-1.1); Prothrombin Time 11.4 Seconds (9.0-12.0)
--- NOTE | 2024-07-01 20:36 | History & Physical Report ---
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 O2 sats less than 94 on room air documented at the ER Rule out PE given hemoptysis/worsening SOB Superimposed bacterial infection, concomitant aspiration, history esophageal dysfunction, no sepsis for now Hypokalemia, hypomagnesemia, hypocalcemia secondary to illness CellCept possibly contributory to electrolyte abnormalities on review of literature GERD, stable on PPI chronic anemia, progressive anemia noted on review of outpatient blood work a month after CellCept initiated December 2023 LE swelling rule out DVT Admit to medical telemetry Decadron for severe COVID-19 pneumonia on the basis of O2 sats less than 94% Continue outpatient Augmentin and doxycycline course for superimposed bacterial pneumonia CT chest PE study May benefit from inpatient Pulmonology evaluation Hold CellCept for now given progressive anemia and multiple electrolyte abnormalities. Will request a.m. provider to touchbase with patient's [facility] pulmonologists (Dr. Blanchard/Bakari) in a.m. regarding medication. Replace electrolytes LE venous Dopplers rule out DVT DVT prophylaxis. SCDs if no LE blood clot re: hemoptysis Full code Patient requesting updates providers. Mr. Michael Vargas, contact #[phone]. Text document was generated using [employer] voice recognition software. It may contain grammatical or spelling errors. Kindly contact undersigned for clarification of any documentation item in question. History of Present Illness Chief Complaint: Shortness of breath, nausea, poor appetite Primary Care Provider: Abelardo James MD History obtained from patient, family, and records. 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 Loss of smell/taste sensation and appetite symptoms last month. Sick contacts at home. Outpatient COVID-19 test was positive. 2 weeks ago, patient noted junky cough symptoms with scant hemoptysis. Occasional coughing with meals/water intake with SOB. No actual chest pain. No weight gain. Legs a little more swollen than usual. Known aspiration risk as per patient which has been minimized by special bed at home. Poor appetite, nausea, vomiting symptoms without abdominal pain. Transient diarrhea attributed to iron prescription prescribed for worsening anemia with low iron indices possibly secondary to CellCept as per outpatient H ematology note. Patient seen at PCP's office yesterday. Outpatient COVID-19 swab still positive. Outpatient CXR showed Bilateral subpleural reticular densities and ground-glass opacities are again noted, consistent with interstitial lung disease. There are however increased bilateral lower lobe ground-glass opacities, concerning for infection. There also bilateral peribronchial thickening. Patient prescribed Augmentin and azithromycin course. Azithromycin later switched by outpatient provider to doxycycline given potential interaction with patient's colchicine. Patient brought to ER for worsening symptoms by . IV cefepime administered at the ER. Lowest O2 sats of 92 on room air documented at the ER. 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 Allergies Allergy/AdvReac Type Severity Reaction Status Date / Time omeprazole Allergy Intermediate Hives Verified 07/01/24 20:32 nitrofurantoin Allergy Unknown cough and Verified 07/01/24 20:37 short of breath Home Medications Medication Instructions Recorded Confirmed Type albuterol sulfate 90 mcg/actuation 2 puff inhalation Q6 PRN coughing 07/01/24 07/01/24 History aerosol inhaler amoxicillin 875 mg-potassium 1 tab PO BID 07/01/24 07/01/24 History clavulanate 125 mg tablet colchicine 0.6 mg tablet 0.6 mg PO HS 07/01/24 07/01/24 History doxycycline hyclate 100 mg capsule 100 mg PO BID 07/01/24 07/01/24 History esomeprazole magnesium 40 mg 40 mg PO QAM 07/01/24 07/01/24 History capsule,delayed release hydrocodone-homatropine 5 mg-1.5 5 ml PO Q6 PRN Cough 07/01/24 07/01/24 History mg/5 mL oral syrup mycophenolate mofetil 500 mg tablet 1,500 mg PO AMHS 07/01/24 07/01/24 History nifedipine 30 mg tablet,extended 30 mg PO QAM 07/01/24 07/01/24 History release 24 hr primidone 50 mg tablet 50 mg PO AMHS 07/01/24 07/01/24 History Past Med/Surg History Problem List (Updated 07/01/24 @ 23:43 by Johnnie Chapman MD) SOB (shortness of breath) Acute hypokalemia (Acute) Social History Smoking Status: Never smoker Hx Alcohol Use: No Hx Substance Use: No Preferred Language: Guatemalan Communication Ability: Effective Rehabilitation Attendant Required: No Beliefs That Will Affect Care: None Current Living Situation: Spouse Other Information That Helps Us Care for You: No Feels Safe at Home: Yes Safety Concerns: Feels Safe At This Time Assistive Devices: None Review of Systems Review of Systems: As per HPI, all other systems reviewed and negative Physical Exam Physical Exam: GENERAL: Ill-appearing, no respiratory distress SKIN: Pallor, warm HEENT: Pale palpebral conjunctivae, no ptosis, dry buccal mucosa NECK : Supple, no tenderness CHEST : Decreased breath sounds, no tenderness HEART : Tachycardic, no obvious murmurs ABDOMEN: Some distention, nontender EXTREMITIES : Minimal LE swelling, no LE tenderness, no other conspicuous deformities noted NEUROLOGIC : Coherent, no facial asymmetry, no other gross focality Results & Data Results & Data Vital Signs (Past 12 Hours) Vital Signs Temp Pulse Pulse Resp BP BP Pulse Ox 07/01/24 19:12 111 H 07/01/24 19:10 110 H 22 140/75 95 07/01/24 19:09 110 H 95 07/01/24 18:58 37.5 C 117 H 20 135/77 92 O2 Del Method 07/01/24 19:12 07/01/24 19:10 Room Air 07/01/24 19:09 Room Air 07/01/24 18:58 Room Air Laboratory Results Laboratory Results WBC 5.88 K/ul (4.8-10.8) 07/01/24 19:15 RBC 2.95 M/uL (4.20-5.40) L 07/01/24 19:15 Hgb 8.9 g/dl (12.0-16.0) L 07/01/24 19:15 Hct 27.0 % (37.0-47.0) L 07/01/24 19:15 MCV 91.5 fL (80.0-100.0) 07/01/24 19:15 MCH 30.2 pg (25.0-34.0) 07/01/24 19:15 MCHC 33.0 g/dL (32.0-36.0) 07/01/24 19:15 RDW Std Deviation 46.9 fL (36.4-46.3) H 07/01/24 19:15 RDW Coeff of Juanita 14.2 % (11.5-14.5) 07/01/24 19:15 Plt Count 297 K/uL (130-400) 07/01/24 19:15 MPV 10.2 fL (9.4-12.4) 07/01/24 19:15 Immature Gran % (Auto) 0.5 % 07/01/24 19:15 Neut % (Auto) 83.2 % 07/01/24 19:15 Lymph % (Auto) 5.6 % 07/01/24 19:15 [place] % (Auto) 9.7 % 07/01/24 19:15 Eos % (Auto) 0.7 % 07/01/24 19:15 Baso % (Auto) 0.3 % 07/01/24 19:15 Neut # (Auto) 4.89 K/uL (1.40-6.50) 07/01/24 19:15 Lymph # (Auto) 0.33 K/uL (1.20-3.40) L 07/01/24 19:15 [place] # (Auto) 0.57 K/uL (0.11-0.59) 07/01/24 19:15 Eos # (Auto) 0.04 K/uL (0.00-0.50) 07/01/24 19:15 Baso # (Auto) 0.02 K/uL (0.00-0.20) 07/01/24 19:15 Immature Gran # (Auto) 0.03 K/uL (0.01-0.20) 07/01/24 19:15 PT 11.4 Seconds (9.0-12.0) 07/01/24 19:15 INR 1.1 (0.9-1.1) 07/01/24 19:15 Sodium 134 mmol/L (136-145) L 07/01/24 19:15 Potassium 2.5 mmol/L (3.5-5.1) L* 07/01/24 19:15 Chloride 98 mmol/L (98-107) 07/01/24 19:15 Carbon Dioxide 26 mmol/L (21-32) 07/01/24 19:15 Anion Gap 10 (3-11) 07/01/24 19:15 BUN 8 mg/dl (6-23) 07/01/24 19:15 Creatinine 0.57 mg/dl (0.6-1.2) L 07/01/24 19:15 Est Cr Clr Drug Dosing 79.0 ml/min 07/01/24 19:15 Est GFR ( Amer) 107.3 ml/min 07/01/24 19:15 Est GFR (Non-Af Amer) 92.6 ml/min 07/01/24 19:15 BUN/Creatinine Ratio 14.0 (10-20) 07/01/24 19:15 Glucose 117 mg/dl (70-99(Fasting)) H 07/01/24 19:15 Calcium 7.2 mg/dl (8.6-10.3) L 07/01/24 19:15 Total Bilirubin 0.3 mg/dl (0.2-1.0) 07/01/24 19:15 AST 19 U/L (13-39) 07/01/24 19:15 ALT 14 U/L (7-52) 07/01/24 19:15 Alkaline Phosphatase 59 U/L (34-104) 07/01/24 19:15 Troponin I High Sens 10.5 pg/ml (0-14) 07/01/24 19:15 Total Protein 6.4 gm/dl (6.0-8.3) 07/01/24 19:15 Albumin 3.5 gm/dl (3.4-5.0) 07/01/24 19:15 Globulin 2.9 gm/dl (2.5-4.0) 07/01/24 19:15 Albumin/Globulin Ratio 1.2 (0.9-2) 07/01/24 19:15 Lipase 10 U/L (11-82) L 07/01/24 19:15 Procalcitonin < 0.02 ng/ml (0-0.5) 07/01/24 19:15 Impressions Chest X-Ray 07/01/24 19:10 SINGLE VIEW CHEST CLINICAL HISTORY: Dyspnea. Covid FINDINGS: An AP, portable, upright chest radiograph is compared to chest x-ray and chest CT dated 12/14/2007. The heart is enlarged noting atherosclerotic calcification of the thoracic aorta. There is pulmonary vascular congestion. There is mild bibasilar airspace consolidation, greater on the left. No large pleural effusion or pneumothorax is seen. The skeletal structures are osteopenic. The bony thorax is grossly intact. IMPRESSION: 1. Cardiomegaly with mild pulmonary vascular congestion. 2. Airspace consolidation is seen at both lung bases, left greater than right. The appearance favors pneumonia/aspiration pneumonitis. Clinical correlation will be required and radiographic follow-up to resolution is recommended. ACT 112: Negative or not required by law. Electronically signed by: Lei Mo M.D. 07/01/2024 7:27 PM Diagnostic Findings EKG as per my interpretation : Rate 110, sinus tachycardia, LAD, LAFB, LVH, septal infarct, no ischemia
[2024-07-01] MEDS: CEFEPIME 2,000 MG in SYRINGE 0 ML IV STA (20:50)
[2024-07-01] MEDS: POTASSIUM CHLORIDE PWD 20 MEQ PACK PO STA (20:50)
[2024-07-01 20:56] LABS: Magnesium 0.7 mg/dl (1.7-2.4)
[2024-07-01] MEDS: CALCIUM GLUCONATE 1,000 MG/60 ML BAG IV SCH (20:59)
[2024-07-01] MEDS ORDERED: traMADol HCL 50 MG TABLET PO PRN (21:25)
[2024-07-01 21:29] LABS: Appearance Urine Clear (Clear); Bilirubin Urine Negative (Negative); Blood Urine Negative (Negative); Color Urine Yellow; Glucose Urine UA Negative (Negative); Ketones Urine Negative (Negative); Leukocyte Esterase Urine Negative (Negative); Nitrite Urine Negative (Negative); Protein Urine Negative (Negative); Specific Gravity Urine 1.007 (1.000-1.030); Urobilinogen Urine Negative (Negative)
[2024-07-01] MEDS: OPTIRAY 320 125ml IV ONE (21:37)
[2024-07-01 21:52] LABS: Estimated Average Glucose 134 mg/dl; Hemoglobin A1C 6.3 % (4.5-5.6)
[2024-07-01 22:15] LABS: Adenovirus PCR Not Detected (NotDetected); Bordetella parapertussis PCR Not Detected (NotDetected); Bordetella pertussis PCR Not Detected (NotDetected); Chlamydia pneumoniae PCR Not Detected (NotDetected); Coronavirus 229E PCR Not Detected (NotDetected); Coronavirus CoV-2 (COVID19)PCR DETECTED (NotDetected); Coronavirus HKU1 PCR Not Detected (NotDetected); Coronavirus NL63 PCR Not Detected (NotDetected); Coronavirus OC43PCR Not Detected (NotDetected); Human Metapneumovirus PCR Not Detected (NotDetected); Influenza A PCR Not Detected (NotDetected); Influenza B PCR Not Detected (NotDetected); Mycoplasma pneumoniae PCR Not Detected (NotDetected); Parainfluenza Virus 1 PCR Not Detected (NotDetected); Parainfluenza Virus 2 PCR Not Detected (NotDetected); Parainfluenza Virus 3 PCR Not Detected (NotDetected); Parainfluenza Virus 4 PCR Not Detected (NotDetected); Respiratory Syncytial VirusPCR Not Detected (NotDetected); Rhinovirus/Enterovirus PCR Not Detected (NotDetected)
[2024-07-01] MEDS: DOXYCYCLINE HYCLATE 100 MG in DEXTROSE 5% MINI-B 100 ML IV STA (22:15)
[2024-07-01] MEDS: FAMOTIDINE 20MG IV PUSH 20 MG/5 ML SYR IV STA (22:15)
[2024-07-01] MEDS: AMPICILLIN/SULBACTAM SOD 3,000 MG/100 ML BAG IV STA (22:20)
[2024-07-01] MEDS: POTASSIUM CHLORIDE PWD 20 MEQ PACK PO ONE ×2 (23:17)
--- NOTE | 2024-07-01 23:59 | Ultrasound Report ---
ULTRASOUND BILATERAL LOWER EXTREMITY VENOUS CLINICAL HISTORY: Lower extremity edema. COMPARISON STUDY: Right lower extremity venous extremity dated 02/11/2011. TECHNIQUE: Real-time, grayscale, and color Doppler sonography of the deep veins of the right and left lower extremity was performed from the inguinal crease to the calf. Compression and augmentation wer e utilized. FINDINGS: There is no sonographic evidence of deep venous thrombosis identified in the right or left lower extremity. The common femoral, superficial femoral, and popliteal veins are patent and normally compressible bilaterally. The greater saphenous vein and the profunda femoris vein at the junction w ith the common femoral vein are clear in both legs. The visualized calf veins are patent bilaterally. IMPRESSION: There is no sonographic evidence of deep venous thrombosis identified in the right or lef t lower extremity. ACT 112: Negative or not required by law. Electronically signed by: Lei Mo M.D. 07/01/2024 11:58 PM
--- NOTE | 2024-07-02 00:09 | CT Scan Report ---
Exam(s): CTA CHEST IV Amt: OPTIRAY [id number] 119ML EXAM: CT Angiography Chest With Intravenous Contrast CLINICAL HISTORY: Reason for exam: sob, hemoptysis. TECHNIQUE: Axial computed tomographic angiography images of the chest with intravenous contrast. CTDI is 8.37 mGy and DLP is 239.03 mGy-cm. Automated exposure control was utilized for the study. A dose lowering technique was utilized adhering to the principles of ALARA. MIP reconstructed images were created and reviewed. COMPARISON: No relevant prior studies available. FINDINGS: Pulmonary arteries: Unremarkable. No pulmonary embolism. Aorta: No acute findings. No thoracic aortic aneurysm. Lungs: Airspace consolidations, consistent with multilobar pneumonia. Pleural space: Unremarkable. No significant effusion. No pneumothorax. Heart: Unremarkable. No cardiomegaly. No significant pericardial effusion. No evidence of RV dysfunction. Bones/joints: No acute fracture. No dislocation. Soft tissues: Unremarkable. Lymph nodes: Unremarkable. No enlarged lymph nodes. IMPRESSION: 1. No pulmonary embolism. 2. Airspace consolidations, consistent with multilobar pneumonia. Electronically signed by: Hosea Hilliard MD 07/02/24 00:09 AM
[2024-07-02] MEDS: PRIMIDONE 50 MG TAB PO SCH (01:18)
[2024-07-02] MEDS: dexAMETHasone 6 MG in SYRINGE 0 ML IV SCH (01:18)
[2024-07-02] MEDS: NSS + 20MEQ KCL 20 MEQ/1,000 ML BAG IV ONE (01:19)
[2024-07-02] MEDS: MAGNESIUM SULFATE / D5W 1 GM/100 ML BAG IV SCH ×2 (01:19→10:53)
[2024-07-02] MEDS: LEVALBUTEROL 1.25 MG/3 ML NEB NEB PRN (01:20)
[2024-07-02] MEDS: BENZONATATE 100 MG CAPSULE PO PRN (01:20)
[2024-07-02] MEDS: IPRATROPIUM BROMIDE NEB SOLN 0.02% 0.5MG/2.5ML VIAL INH PRN (01:20)
[2024-07-02] MEDS ORDERED: HYDROcodone/HOMATROPINE SYRUP 5MG/1.5MG 5ML UDP PO PRN (04:07)
[2024-07-02 07:25] LABS: Hematocrit (blood only) 25.8 % (37.0-47.0); Hemoglobin 8.2 g/dl (12.0-16.0); Mean Corpuscular Hemoglobin 29.6 pg (25.0-34.0); Mean Corpuscular Hgb Conc 31.8 g/dL (32.0-36.0); Mean Corpuscular Volume 93.1 fL (80.0-100.0); Mean Platelet Volume 10.2 fL (9.4-12.4); Platelet Count 255 K/uL (130-400); RDW Coefficient of Variation 14.3 % (11.5-14.5); RDW Standard Deviation 48.8 fL (36.4-46.3); Red Blood Count 2.77 M/uL (4.20-5.40); White Blood Count 4.32 K/ul (4.8-10.8)
[2024-07-02 07:45] LABS: Basophils # (auto) 0.01 K/uL (0.00-0.20); Basophils % (auto) 0.2 %; Immature Granulocytes # (auto) 0.03 K/uL (0.01-0.20); Immature Granulocytes % (auto) 0.7 %; Lymphocytes # (auto) 0.21 K/uL (1.20-3.40); Lymphocytes % (auto) 4.9 %; Monocytes # (auto) 0.16 K/uL (0.11-0.59); Monocytes % (auto) 3.7 %; Neutrophils # (auto) 3.91 K/uL (1.40-6.50); Neutrophils % (auto) 90.5 %
--- NOTE | 2024-07-02 07:45 | Electrocardiogram Report ---
Test Reason : Blood Pressure : */* mmHG Vent. Rate : 109 BPM Atrial Rate : 109 BPM P-R Int : 172 ms QRS Dur : 88 ms QT Int : 340 ms P-R-T Axes : 67 -51 57 degrees QTcB Int : 457 ms Sinus tachycardia Possible Left atrial enlargement Left anterior fascicular block Minimal voltage criteria for LVH, may be normal variant ( Brian product ) Septal infarct , age undetermined Abnormal ECG When compared with ECG of 15-Dec-2007 06:58, Compared to prior ECG from 2007, LAD LAHB LVH and septal PR are all new. Confirmed by Shanice Haro (Renny) on 07/02/2024 7:45:25 AM Referred By: REFERRED SELF Confirmed By: Shanice Haro
[2024-07-02 07:57] LABS: Calcium 7.9 mg/dl (8.6-10.3); Magnesium 1.4 mg/dl (1.7-2.4); Potassium 3.9 mmol/L (3.5-5.1)
[2024-07-02] MEDS ORDERED: AMPICILLIN SOD/SULBACTAM SOD 3 GM VIAL IV SCH (08:00)
[2024-07-02 08:03] LABS: BUN Creatinine Ratio 11.8 (10-20); Creatinine Clr Calc Pharmacy 88.3 ml/min; Est GFR (African American) 111.3 ml/min; Est GFR (Non-African American) 96.1 ml/min
[2024-07-02] MEDS: DOXYCYCLINE HYCLATE 100 MG CAP PO SCH (08:41)
[2024-07-02] MEDS: PANTOprazole 40 MG TAB PO SCH (08:41)
[2024-07-02] MEDS: AMOXICILLIN/CLAVULANATE 875 MG TAB PO SCH (08:41)
[2024-07-02] MEDS: NIFEdipine EXTENDED REL 30 MG TABCR PO SCH (08:41)
--- NOTE | 2024-07-02 09:15 | Hospitalist Progress Note ---
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 He recommends holding CellCept for 2 weeks Hypokalemia Hypomagnesemia Hypocalcemia Reported recent diarrhea which has resolved On admission, Mg was 0.7, K was 2.5 Being repleted K is 3.9, Mg is 1.4 Monitor CREST/ILD Chronic anemia Possible related to Cellcept Held for now as above Patient reported diarrhea with iron tabs. She needs to follow up with her Director Diversity and may need Iron infusion if not tolerating po Continue Nifedipine GERD Stable on PPI DVT prophylaxis. Will do hep sq q12h considering risk of VTE with COVID. Will monitor cautiously Full code Updated patient and at bedside I spent a total of 50 minutes coordinating, documenting and providing care for this patient excluding time spent in performance of separately billed services Admission and Anticipated Discharge Date Admission Date: July 01, 2024 Subjective Patient seen and examined Reports cough, productive with blood tinged sputum Reports minimal rhinorrhea improved Reports exertional dyspnea and weakness Denied chest pain Reports diarrhea is resolved Denied other complaints on ROS Physical Exam Constitutional: + well hydrated; no acute distress Eyes: PERRL, conjunctivae normal, anicteric sclerae ENMT: external ear and nose normal, oropharynx normal Respiratory: Not in resp distress, on room air, +crackles Cardiovascular: Rate/Rhythm: regular rate and regular rhythm Gastrointestinal (Abdomen): normal bowel sounds, soft, nontender, no hepatosplenomegaly Musculoskeletal: No pedal edema Neurologic: PERRL, EOMI, accommodation nl, no face palsy, no dysarthria Psychiatric: A+Ox3, euthymic affect Results & Data Results & Data Vital Signs (Past 12 Hours) Vital Signs Temp Pulse Pulse Pulse Resp BP BP 07/02/24 08:38 36.7 C 84 16 109/70 07/02/24 08:24 36.7 C 88 16 112/71 07/02/24 03:05 37.2 C 99 H 18 110/71 07/01/24 23:51 105 H 07/01/24 22:52 82 20 134/81 07/01/24 21:57 107 H 18 131/76 Pulse Ox O2 Del Method 07/02/24 08:38 95 Room Air 07/02/24 08:24 95 Room Air 07/02/24 03:05 92 Room Air 07/01/24 23:51 07/01/24 22:52 94 07/01/24 21:57 95 Room Air Laboratory Results Abnormal lab results 07/01/24 07/01/24 07/01/24 Range/Units 19:15 21:03 21:31 WBC (4.8-10.8) K/ul RBC 2.95 L (4.20-5.40) M/uL Hgb 8.9 L (12.0-16.0) g/dl Hct 27.0 L (37.0-47.0) % MCHC (32.0-36.0) g/dL RDW Std Deviation 46.9 H (36.4-46.3) fL Lymph # (Auto) 0.33 L (1.20-3.40) K/uL Sodium 134 L (136-145) mmol/L Potassium 2.5 L* (3.5-5.1) mmol/L Creatinine 0.57 L (0.6-1.2) mg/dl Glucose 117 H (70-99(Fasting)) mg/dl Hemoglobin A1c 6.3 H (4.5-5.6) % Calcium 7.2 L (8.6-10.3) mg/dl Magnesium 0.7 L* (1.7-2.4) mg/dl Lipase 10 L (11-82) U/L SARS-CoV-2 (PCR) DETECTED A (NotDetected) 07/02/24 Range/Units 06:45 WBC 4.32 L (4.8-10.8) K/ul RBC 2.77 L (4.20-5.40) M/uL Hgb 8.2 L (12.0-16.0) g/dl Hct 25.8 L (37.0-47.0) % MCHC 31.8 L (32.0-36.0) g/dL RDW Std Deviation 48.8 H (36.4-46.3) fL Lymph # (Auto) 0.21 L (1.20-3.40) K/uL Sodium (136-145) mmol/L Potassium (3.5-5.1) mmol/L Creatinine 0.51 L (0.6-1.2) mg/dl Glucose 119 H (70-99(Fasting)) mg/dl Hemoglobin A1c (4.5-5.6) % Calcium 7.9 L (8.6-10.3) mg/dl Magnesium 1.4 L (1.7-2.4) mg/dl Lipase (11-82) U/L SARS-CoV-2 (PCR) (NotDetected)
[2024-07-02] MEDS: AMPICILLIN/SULBACTAM SOD 3,000 MG/100 ML BAG IV SCH (09:16)
[2024-07-02] MEDS: PROMETHAZINE 6.25 MG/50.25 ML BAG IV PRN (10:42)
[2024-07-02 19:25] LABS: BUN Creatinine Ratio 12.1 (10-20); Calcium 7.7 mg/dl (8.6-10.3); Creatinine Clr Calc Pharmacy 77.6 ml/min; Est GFR (African American) 106.7 ml/min; Est GFR (Non-African American) 92.1 ml/min; Magnesium 1.9 mg/dl (1.7-2.4); Phosphorus 2.1 mg/dl (2.5-4.9); Potassium 3.4 mmol/L (3.5-5.1)
[2024-07-02] MEDS: COLCHICINE 0.6 MG TAB PO SCH (21:15)
[2024-07-02] MEDS: HEPARIN SOD 5,000 UNIT/0.5 ML VIAL SQ SCH (21:15)
[2024-07-03] MEDS: CALCIUM CARBONATE 500 MG CHEWABLE TAB PO STA (00:13)
[2024-07-03] MEDS: FAMOTIDINE 20MG IV PUSH 20 MG/5 ML SYR IV STA (03:23)
[2024-07-03 07:18] LABS: Hematocrit (blood only) 26.7 % (37.0-47.0); Hemoglobin 8.3 g/dl (12.0-16.0); Mean Corpuscular Hgb Conc 31.1 g/dL (32.0-36.0); Mean Corpuscular Volume 93.4 fL (80.0-100.0); Mean Platelet Volume 10.6 fL (9.4-12.4); Platelet Count 307 K/uL (130-400); RDW Coefficient of Variation 14.5 % (11.5-14.5); RDW Standard Deviation 48.8 fL (36.4-46.3); Red Blood Count 2.86 M/uL (4.20-5.40); White Blood Count 5.11 K/ul (4.8-10.8)
[2024-07-03 07:36] LABS: BUN Creatinine Ratio 15.8 (10-20); Calcium 7.8 mg/dl (8.6-10.3); Est GFR (African American) 107.3 ml/min; Est GFR (Non-African American) 92.6 ml/min; Magnesium 1.8 mg/dl (1.7-2.4); Phosphorus 1.8 mg/dl (2.5-4.9); Potassium 3.4 mmol/L (3.5-5.1)
[2024-07-03] MEDS ORDERED: POTASSIUM PHOS 3 MMOL/1 ML INFUSION IV STA (08:07)
[2024-07-03] MEDS: MAGNESIUM OXIDE 400 MG TAB PO SCH (08:18)
[2024-07-03] MEDS: PANTOprazole 40 MG TAB PO SCH (08:19)
[2024-07-03] MEDS: LOPERAMIDE HCL 2 MG CAP PO PRN (08:33)
[2024-07-03] MEDS: POTASSIUM PHOSPHATE 30 MMOL in SODIUM CHLORIDE 0.9% 500 ML IV ONE (09:10)
--- NOTE | 2024-07-03 09:33 | Hospitalist Progress Note ---
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 He recommends holding CellCept for 2 weeks. Patient and notified about this Hypokalemia Hypomagnesemia Hypophosphatemia Likely related to GI loss from diarrhea On admission, Mg was 0.7, K was 2.5 K is 3.4, Phos is 1.8 , Mag is 1.8 Give IV K phos Continue po mag Monitor and replete appropriately Diarrhea likely related to COVID. However, get stool PCR C diff negative Trial of imodium Antiemetic prn CREST/ILD Chronic anemia likely related to Cellcept Held for now as above Patient reported diarrhea with iron tabs. She needs to follow up with her Pack Room Operator and may need Iron infusion if not tolerating po Continue Nifedipine GERD Stable on PPI DVT prophylaxis. Hep sq Full code Updated patient and at bedside They asked about getting H. pylori test. I informed them that H. pylori stool test is a send out and ideally patient needs to be off PPI for 14 days for optimal result. They can follow up with PCP about that I spent a total of 50 minutes coordinating, documenting and providing care for this patient excluding time spent in performance of separately billed services Admission and Anticipated Discharge Date Admission Date: July 01, 2024 Subjective Patient seen and examined Reports cough, productive with blood tinged sputum Denied fever, chills, rhinorrhea, chest pain, SOB at rest Had multiple episodes of diarrhea later in day yesterday and last night. C diff was negative Denied abd pain, melena, hematochezia Reports nausea. Had an episode of bilous vomiting this AM Denied other complaints on ROS Physical Exam Constitutional: + well hydrated; no acute distress Eyes: PERRL, conjunctivae normal, anicteric sclerae ENMT: external ear and nose normal, oropharynx normal Respiratory: On room air, not in resp distress, few crackles Cardiovascular: Rate/Rhythm: regular rate and regular rhythm Gastrointestinal (Abdomen): normal bowel sounds, soft, nontender, no hepatosplenomegaly Musculoskeletal: No pedal edema Neurologic: PERRL, EOMI, accommodation nl, no face palsy, no dysarthria Psychiatric: A+Ox3, euthymic affect Results & Data Results & Data Vital Signs (Past 12 Hours) Vital Signs Temp Pulse Pulse Resp BP Pulse Ox O2 Del Method 07/03/24 07:19 98 H 07/03/24 07:14 37.4 C 99 H 18 112/65 92 Room Air 07/02/24 22:22 36.7 C 92 H 18 125/70 95 Room Air Laboratory Results Abnormal lab results 07/02/24 07/03/24 Range/Units 18:47 06:27 RBC 2.86 L (4.20-5.40) M/uL Hgb 8.3 L (12.0-16.0) g/dl Hct 26.7 L (37.0-47.0) % MCHC 31.1 L (32.0-36.0) g/dL RDW Std Deviation 48.8 H (36.4-46.3) fL Potassium 3.4 L 3.4 L (3.5-5.1) mmol/L Creatinine 0.58 L 0.57 L (0.6-1.2) mg/dl Glucose 115 H (70-99(Fasting)) mg/dl Calcium 7.7 L 7.8 L (8.6-10.3) mg/dl Phosphorus 2.1 L 1.8 L (2.5-4.9) mg/dl
[2024-07-03] MEDS: hydrOXYzine HCl 10 MG TAB PO PRN (14:13)
[2024-07-03 15:50] LABS: Adenovirus F 40/41 PCR Not Detected (NotDetected); Astrovirus PCR Not Detected (NotDetected); Campylobacter PCR Not Detected (NotDetected); Cryptosporidium PCR Not Detected (NotDetected); Cyclospora cayetanensis PCR Not Detected (NotDetected); Entamoeba histolytica PCR Not Detected (NotDetected); Enteroaggregative E.coli(EAEC) Not Detected (NotDetected); Enteropathogenic E.coli (EPEC) Not Detected (NotDetected); Enterotoxigenic E.coli (ETEC) Not Detected (NotDetected); Giardia lamblia PCR Not Detected (NotDetected); Norovirus GI/GII PCR Not Detected (NotDetected); Plesiomonas shigelloides PCR Not Detected (NotDetected); Rotavirus A PCR Not Detected (NotDetected); Salmonella PCR Not Detected (NotDetected); Sapovirus PCR Not Detected (NotDetected); Shiga-like Toxin E.coli (STEC) Not Detected (NotDetected); Shigella/Enteroinvasive E.coli Not Detected (NotDetected); Vibrio cholerae PCR Not Detected (NotDetected); Vibrio species PCR Not Detected (NotDetected); Yersinia enterocolitica PCR Not Detected (NotDetected)
[2024-07-03] MEDS: ADVANCED PROBIOTIC 625 MG CAPSULE PO SCH (18:02)
[2024-07-04] MEDS: ACETAMINOPHEN 325 MG TAB PO PRN (03:21)
[2024-07-04 07:12] LABS: BUN Creatinine Ratio 14.5 (10-20); Calcium 7.7 mg/dl (8.6-10.3); Creatinine Clr Calc Pharmacy 65.2 ml/min; Est GFR (African American) 100.8 ml/min; Magnesium 1.5 mg/dl (1.7-2.4); Phosphorus 3.1 mg/dl (2.5-4.9); Potassium 3.9 mmol/L (3.5-5.1)
[2024-07-04 07:18] LABS: Hemoglobin 8.3 g/dl (12.0-16.0); Mean Corpuscular Hemoglobin 30.1 pg (25.0-34.0); Mean Corpuscular Hgb Conc 33.2 g/dL (32.0-36.0); Mean Corpuscular Volume 90.6 fL (80.0-100.0); Mean Platelet Volume 10.6 fL (9.4-12.4); Platelet Count 297 K/uL (130-400); RDW Coefficient of Variation 14.3 % (11.5-14.5); RDW Standard Deviation 47.3 fL (36.4-46.3); Red Blood Count 2.76 M/uL (4.20-5.40); White Blood Count 4.82 K/ul (4.8-10.8)
[2024-07-04] MEDS: MAGNESIUM SULFATE / D5W 1 GM/100 ML BAG IV SCH (09:48)
[2024-07-04] MEDS ORDERED: INFLUENZA VACC TS2024-25(65y+)/PF (IIV3) 0.5mL Syr IM ONE ×2 (09:51→10:30)
--- NOTE | 2024-07-04 14:35 | Hospitalist Progress Note ---
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 -He recommended holding CellCept for 2 weeks. Patient and notified about this Continue to monitor Hypokalemia Hypomagnesemia Hypophosphatemia Likely related to GI loss from diarrhea On admission, Mg was 0.7, K was 2.5 Replete as needed Diarrhea Stool Cx and c diff with no acute findings Diarrhea likely related to COVID. However, get stool PCR Trial of imodium Antiemetic prn CREST/ILD Chronic anemia likely related to Cellcept Held for now as above Patient reported diarrhea with iron tabs. She needs to follow up with her Guard Sergeant and may need Iron infusion if not tolerating po Continue Nifedipine GERD Stable on PPI Diet: HH/low sodium DVT prophylaxis. Hep sq Full code Dispo: Home once medically stable Admission and Anticipated Discharge Date Admission Date: July 01, 2024 Subjective Patient was seen with adult son and at bedside. States she is finally able to eat, notes that she has not been able to even look at food without feeling some GI upset. Daughter concerned about persistent nausea and vomiting and diarrhea. Patient states she has also been coughing up blood-tinged sputum, was bright red but not brown. Noted this has been been improving. States that she overall she is feeling much better. Review of Systems Review of Systems: All systems reviewed & are unremarkable except as noted in Subjective Physical Exam Physical Exam: General: Alert, oriented. No acute distress Psych: Appropriate mood and affect Neuro: tremulous HEENT: NC/AT CV: RRR Resp: Breath sounds clear bilaterally, no increased effort of breathing. Abdomen: Soft, nontender Extremities: No edema in lower extremities bilaterally. Results & Data Results & Data Vital Signs (Past 12 Hours) Vital Signs Temp Pulse Pulse Pulse Resp BP BP 07/04/24 11:09 37.1 C 82 16 99/60 L 07/04/24 09:32 07/04/24 07:27 36.8 C 91 H 16 101/63 07/04/24 07:17 92 H 07/04/24 05:25 36.8 C 07/04/24 04:00 38.1 C H 92 H 20 07/04/24 03:29 39.0 C H 110 H 24 137/74 Pulse Ox O2 Del Method 07/04/24 11:09 96 Room Air 07/04/24 09:32 Room Air 07/04/24 07:27 95 Room Air 07/04/24 07:17 07/04/24 05:25 07/04/24 04:00 94 Room Air 07/04/24 03:29 91 Room Air Diagnostic Findings Venous Doppler Study 07/01/24 00:00 ULTRASOUND BILATERAL LOWER EXTREMITY VENOUS CLINICAL HISTORY: Lower extremity edema. COMPARISON STUDY: Right lower extremity venous extremity dated 02/11/2011. TECHNIQUE: Real-time, grayscale, and color Doppler sonography of the deep veins of the right and left lower extremity was performed from the inguinal crease to the calf. Compression and augmentation were utilized. FINDINGS: There is no sonographic evidence of deep venous thrombosis identified in the right or left lower extremity. The common femoral, superficial femoral, and popliteal veins are patent and normally compressible bilaterally. The greater saphenous vein and the profunda femoris vein at the junction with the common femoral vein are clear in both legs. The visualized calf veins are patent bilaterally. IMPRESSION: There is no sonographic evidence of deep venous thrombosis identified in the right or left lower extremity. ACT 112: Negative or not required by law. Electronically signed by: Lei Mo M.D. 07/01/2024 11:58 PM Chest X-Ray 07/01/24 19:10 SINGLE VIEW CHEST CLINICAL HISTORY: Dyspnea. Covid FINDINGS: An AP, portable, upright chest radiograph is compared to chest x-ray and chest CT dated 12/14/2007. The heart is enlarged noting atherosclerotic calcification of the thoracic aorta. There is pulmonary vascular congestion. There is mild bibasilar airspace consolidation, greater on the left. No large pleural effusion or pneumothorax is seen. The skeletal structures are osteopenic. The bony thorax is grossly intact. IMPRESSION: 1. Cardiomegaly with mild pulmonary vascular congestion. 2. Airspace consolidation is seen at both lung bases, left greater than right. The appearance favors pneumonia/aspiration pneumonitis. Clinical correlation will be required and radiographic follow-up to resolution is recommended. ACT 112: Negative or not required by law. Electronically signed by: Lei Mo M.D. 07/01/2024 7:27 PM Chest CTA 07/01/24 21:20 Exam(s): CTA CHEST IV Amt: OPTIRAY [id number] EXAM: CT Angiography Chest With Intravenous Contrast CLINICAL HISTORY: Reason for exam: sob, hemoptysis. TECHNIQUE: Axial computed tomographic angiography images of the chest with intravenous contrast. CTDI is 8.37 mGy and DLP is 239.03 mGy-cm. Automated exposure control was utilized for the study. A dose lowering technique was utilized adhering to the principles of ALARA. MIP reconstructed images were created and reviewed. COMPARISON: No relevant prior studies available. FINDINGS: Pulmonary arteries: Unremarkable. No pulmonary embolism. Aorta: No acute findings. No thoracic aortic aneurysm. Lungs: Airspace consolidations, consistent with multilobar pneumonia. Pleural space: Unremarkable. No significant effusion. No pneumothorax. Heart: Unremarkable. No cardiomegaly. No significant pericardial effusion. No evidence of RV dysfunction. Bones/joints: No acute fracture. No dislocation. Soft tissues: Unremarkable. Lymph nodes: Unremarkable. No enlarged lymph nodes. IMPRESSION: 1. No pulmonary embolism. 2. Airspace consolidations, consistent with multilobar pneumonia. Electronically signed by: Hosea Hilliard MD 07/02/24 00:09 AM
[2024-07-05 07:50] LABS: BUN Creatinine Ratio 15.2 (10-20); Basophils # (auto) 0.04 K/uL (0.00-0.20); Basophils % (auto) 0.7 %; Creatinine Clr Calc Pharmacy 68.1 ml/min; Eosinophils # (auto) 0.21 K/uL (0.00-0.50); Eosinophils % (auto) 3.8 %; Hematocrit (blood only) 26.8 % (37.0-47.0); Hemoglobin 8.8 g/dl (12.0-16.0); Immature Granulocytes # (auto) 0.07 K/uL (0.01-0.20); Immature Granulocytes % (auto) 1.3 %; Lymphocytes # (auto) 0.93 K/uL (1.20-3.40); Magnesium 1.9 mg/dl (1.7-2.4); Mean Corpuscular Hemoglobin 30.1 pg (25.0-34.0); Mean Corpuscular Hgb Conc 32.8 g/dL (32.0-36.0); Mean Corpuscular Volume 91.8 fL (80.0-100.0); Mean Platelet Volume 10.5 fL (9.4-12.4); Monocytes # (auto) 0.62 K/uL (0.11-0.59); Monocytes % (auto) 11.3 %; Neutrophils % (auto) 65.9 %; Phosphorus 2.4 mg/dl (2.5-4.9); Platelet Count 330 K/uL (130-400); Potassium 3.7 mmol/L (3.5-5.1); RDW Coefficient of Variation 14.5 % (11.5-14.5); RDW Standard Deviation 48.9 fL (36.4-46.3); Red Blood Count 2.92 M/uL (4.20-5.40); White Blood Count 5.47 K/ul (4.8-10.8)
[2024-07-05] MEDS: SODIUM CHLORIDE 0.9% 1,000 ML IV SCH (09:12)
[2024-07-05] MEDS: POT PHOSPHATE MONOBASIC W/ SOD TAB PO SCH (09:44)
[2024-07-05 12:02] VITALS: RESP 20; TEMP 98.1; O2SAT 95
--- NOTE | 2024-07-05 12:33 | Discharge Summary ---
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 Prescribed probiotic for use as well. On 07/02/24, previous provider Dr Field discussed the case with patient's Telephone Ad Taker Dr Villegas. -Dr Villegas recommended holding CellCept for 2 weeks. Patient and aware. Cellcept on hold from Jul 01. Improved symptoms and pt stable on day of discharge. Close PCP follow up Hypokalemia Hypomagnesemia Hypophosphatemia Likely related to GI loss from diarrhea On admission, Mg was 0.7, K was 2.5 Repleted as needed, also on day of discharge PCP follow up for continued monitoring Diarrhea Pt presenting with diarrhea from home Patient reported diarrhea with iron tabs. Stool Cx and c diff with no acute findings Diarrhea likely related to COVID, consider CT abd/pelvis if persistent PRN Imodium PCP followup after discharge CREST/ILD Chronic anemia likely related to Cellcept Held for now as above On 07/02/24, previous provider Dr Field discussed the case with patient's Telephone Ad Taker Dr Villegas. -Dr Villegas recommended holding CellCept for 2 weeks. Patient and aware. Cellcept on hold from Jul 01. Pulmonology and Hematology follow up after discharge GERD Stable on PPI Prediabetes hgba1c of 6.3 PCP follow up Notes For Next Care Provider Please ensure followup for cellcept on hold If diarrhea and nausea persistent after covid infection resolves, consider abdominal CT for follow up Continue to monitor electrolytes (K+, Mag and phos) after discharge and supplement as needed. Supplemented on day of discharge Medication Changes From Visit Cellcept on hold for 2 weeks per pt's immigration patrol inspector from Jul 01, 2024 Augmentin and Doxycycline BID x 7 more days Probiotic PRN hydroxyzine for anxiety PRN zofran for nausea Admission HPI Per Admitting Provider History obtained from patient, family, and records. 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 Loss of smell/taste sensation and appetite symptoms last month. Sick contacts at home. Outpatient COVID-19 test was positive. 2 weeks ago, patient noted junky cough symptoms with scant hemoptysis. Occasional coughing with meals/water intake with SOB. No actual chest pain. No weight gain. Legs a little more swollen than usual. Known aspiration risk as per patient which has been minimized by special bed at home. Poor appetite, nausea, vomiting symptoms without abdominal pain. Transient diarrhea attributed to iron prescription prescribed for worsening anemia with low iron indices possibly secondary to CellCept as per outpatient Hematology note. Patient seen at PCP's office yesterday. Outpatient COVID-19 swab still positive. Outpatient CXR showed Bilateral subpleural reticular densities and ground-glass opacities are again noted, consistent with interstitial lung disease. There are however increased bilateral lower lobe ground-glass opacities, concerning for infection. There also bilateral peribronchial thickening. Patient prescribed Augmentin and azithromycin course. Azithromycin later switched by outpatient provider to doxycycline given potential interaction with patient's colchicine. Patient brought to ER for worsening symptoms by . IV cefepime administered at the ER. Lowest O2 sats of 92 on room air documented at the ER. 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 No acute distress Psych: Appropriate mood and affect Neuro: tremulous HEENT: NC/AT CV: RRR Resp: Breath sounds clear bilaterally, no increased effort of breathing. Abdomen: Soft, nontender Extremities: No edema in lower extremities bilaterally. Updated Medication List Medication Instructions Recorded Confirmed Type albuterol sulfate 90 mcg/actuation 2 puff inhalation Q6 PRN coughing 07/01/24 07/01/24 History aerosol inhaler colchicine 0.6 mg tablet 0.6 mg PO HS 07/01/24 07/01/24 History esomeprazole magnesium 40 mg 40 mg PO QAM 07/01/24 07/01/24 History capsule,delayed release hydrocodone-homatropine 5 mg-1.5 5 ml PO Q6 PRN Cough 07/01/24 07/01/24 History mg/5 mL oral syrup mycophenolate mofetil 500 mg tablet 1,500 mg PO AMHS 07/01/24 07/01/24 History nifedipine 30 mg tablet,extended 30 mg PO QAM 07/01/24 07/01/24 History release 24 hr primidone 50 mg tablet 50 mg PO AMHS 07/01/24 07/01/24 History Saccharomyces boulardii 250 mg 250 mg PO BID #60 caps 07/05/24 Rx capsule (Probiotic (S.boulardii)) amoxicillin 875 mg-potassium 1 tab PO BID #14 tabs 07/05/24 Rx clavulanate 125 mg tablet doxycycline hyclate 100 mg capsule 100 mg PO BID #14 caps 07/05/24 Rx hydroxyzine HCl 10 mg tablet 10 mg PO QID PRN anxiety #60 tabs 07/05/24 Rx loperamide 2 mg capsule 2 mg PO QID PRN loose stool #30 07/05/24 Rx caps ondansetron 4 mg disintegrating 4 mg PO Q8H PRN nausea and 07/05/24 Rx tablet vomiting #30 tabs Hospital Stay Data Consultations 07/01/24 20:20 ED Decision to Admit Stat Diagnostic Imagining Performed 07/01/24 US venous doppler LE BI Stat 07/01/24 21:20 CT angio chest PE protocol Stat Venous Doppler Study 07/01/24 00:00 ULTRASOUND BILATERAL LOWER EXTREMITY VENOUS CLINICAL HISTORY: Lower extremity edema. COMPARISON STUDY: Right lower extremity venous extremity dated 02/11/2011. TECHNIQUE: Real-time, grayscale, and color Doppler sonography of the deep veins of the right and left lower extremity was performed from the inguinal crease to the calf. Compression and augmentation were utilized. FINDINGS: There is no sonographic evidence of deep venous thrombosis identified in the right or left lower extremity. The common femoral, superficial femoral, and popliteal veins are patent and normally compressible bilaterally. The greater saphenous vein and the profunda femoris vein at the junction with the common femoral vein are clear in both legs. The visualized calf veins are patent bilaterally. IMPRESSION: There is no sonographic evidence of deep venous thrombosis identified in the right or left lower extremity. ACT 112: Negative or not required by law. Electronically signed by: Lei Mo M.D. 07/01/2024 11:58 PM Chest X-Ray 07/01/24 19:10 SINGLE VIEW CHEST CLINICAL HISTORY: Dyspnea. Covid FINDINGS: An AP, portable, upright chest radiograph is compared to chest x-ray and chest CT dated 12/14/2007. The heart is enlarged noting atherosclerotic calcification of the thoracic aorta. There is pulmonary vascular congestion. There is mild bibasilar airspace consolidation, greater on the left. No large pleural effusion or pneumothorax is seen. The skeletal structures are osteopenic. The bony thorax is grossly intact. IMPRESSION: 1. Cardiomegaly with mild pulmonary vascular congestion. 2. Airspace consolidation is seen at both lung bases, left greater than right. The appearance favors pneumonia/aspiration pneumonitis. Clinical correlation will be required and radiographic follow-up to resolution is recommended. ACT 112: Negative or not required by law. Electronically signed by: Lei Mo M.D. 07/01/2024 7:27 PM Chest CTA 07/01/24 21:20 Exam(s): CTA CHEST IV Amt: OPTIRAY [id number] EXAM: CT Angiography Chest With Intravenous Contrast CLINICAL HISTORY: Reason for exam: sob, hemoptysis. TECHNIQUE: Axial computed tomographic angiography images of the chest with intravenous contrast. CTDI is 8.37 mGy and DLP is 239.03 mGy-cm. Automated exposure control was utilized for the study. A dose lowering technique was utilized adhering to the principles of ALARA. MIP reconstructed images were created and reviewed. COMPARISON: No relevant prior studies available. FINDINGS: Pulmonary arteries: Unremarkable. No pulmonary embolism. Aorta: No acute findings. No thoracic aortic aneurysm. Lungs: Airspace consolidations, consistent with multilobar pneumonia. Pleural space: Unremarkable. No significant effusion. No pneumothorax. Heart: Unremarkable. No cardiomegaly. No significant pericardial effusion. No evidence of RV dysfunction. Bones/joints: No acute fracture. No dislocation. Soft tissues: Unremarkable. Lymph nodes: Unremarkable. No enlarged lymph nodes. IMPRESSION: 1. No pulmonary embolism. 2. Airspace consolidations, consistent with multilobar pneumonia. Electronically signed by: Hosea Hilliard MD 07/02/24 00:09 AM Discharge Instructions Given to Patient (Per Discharging Provider) Martha, Evangelista were admitted and treated for worsening pneumonia in the setting of COVID. We treated you for superimposed bacterial infection with antibiotics. Please continue with that for an additional 7 days after discharge. Concerning your diarrhea that was noted before admission, we determined that he did not have an acute infection after stool culture testing as well as C. difficile testing. Your symptoms improved with the use of Imodium, continue that as needed after discharge. We also prescribed you some probiotics for use while you are on the antibiotics. Continue with as needed Zofran and hydroxyzine for your nausea and anxiety respectively. Per the recommendations of your immigration patrol inspector, please continue holding your CellCept for a total of 2 weeks from July 01, 2004. Please keep close follow-up with your immigration patrol inspector after discharge. Please keep close follow up with your primary care provider after discharge. Please do not hesitate to come back to the emergency room if your symptoms worsen or return. It was a pleasure taking care of you while you were here. Total Time Total Time Spent Total Time Spent (In Minutes): 65
[2024-07-05 13:16] VITALS: BP 128/57; PULSE 92
== END 2024-07-05 14:22 | disposition home or self-care (01) | DRG 177 ==
LOC: ED 18:54 → SUATTDRO 21:24 → 2N 21:24